=== PATIENT | female | born 1975 | race Caucasian/White ===

== ENCOUNTER 2017-10-04 06:22 | Day surgery (SDC) | payer MEDICAID ==
[~2017-10-04] VITALS: Ht 162.6 cm; Wt 57.3 kg
[~2017-10-04 06:22] MED LIST: FURO-149 PO; LACT10SO PO; RIFA550T PO; SPIR50TA3 PO; THIA100T70 PO
[2017-10-04 06:30] VITALS: BP 137/72
[2017-10-04] MEDS ORDERED: MIDAZolam 5mg/ml 2ml vial ONE (07:03)
[2017-10-04] MEDS ORDERED: fentaNYL/PF 50MCG/1 ML 2ML syringe ONE (07:03)
[2017-10-04] MEDS ORDERED: LIDOcaine Viscous 15ml cup ONE (07:03)
[2017-10-04] MEDS ORDERED: diphenhydrAMINE 50 mg/ml inj ONE (07:59)
[2017-10-04 08:20] VITALS: BP 110/61
[2017-10-04 08:30] VITALS: BP 112/63
[2017-10-04 08:40] VITALS: BP 114/67
== END 2017-10-04 08:55 | disposition home or self-care (01) ==
LOC: GI LAB 06:22
PROVIDERS: ATTEND Internal Medicine Gastroenterology
DX: I85.00 Esophageal varices without bleeding (principal); K31.89 Other diseases of stomach and duodenum; K76.6 Portal hypertension; K29.80 Duodenitis without bleeding
CPT/HCPCS: 43244; 99152; J1200; J2250; J3010; J7030; A4620; G0500

== ENCOUNTER 2017-10-14 06:39 | Inpatient (IN) | payer MEDICAID ==
[~2017-10-14] VITALS: Ht 162.6 cm; Wt 55.0 kg
[~2017-10-14 06:39] MED LIST changes: -RIFA550T PO; -THIA100T70 PO
[2017-10-14] MEDS ORDERED: pantoprazole IV 80 MG in normal saline 100ml IV soln 100 ML IV ONE (06:50)
[2017-10-14] MEDS ORDERED: pantoprazole 40 MG vial IV ONE (07:00)
[2017-10-14 07:33] LABS: HEMATOCRIT 26.5 % (35.0-45.0); HEMOGLOBIN 8.8 g/dl (12.0-16.0); MEAN CORPUSCULAR HEMOGLOBIN 25.3 PG (27.0-31.0); MEAN CORPUSCULAR HGB CONC 33.2 % (33.0-36.5); MEAN CORPUSCULAR VOLUME 76.1 FL (78-98); MEAN PLATELET VOLUME 9.8 FL (7.4-10.4); PLATELET COUNT 72 X10'3 (140-440); RED BLOOD COUNT 3.48 X10'6 (4.20-5.60); RED CELL DISTRIBUTION WIDTH 21.3 % (11.5-14.5); WHITE BLOOD COUNT 5.1 X10'3 (4.5-11.0)
[2017-10-14 07:37] LABS: OCCULT BLOOD STOOL POSITIVE (Neg)
[2017-10-14 07:43] LABS: INR 1.3 INR; PARTIAL THROMBOPLASTIN TIME 32 SECONDS (22-32); PROTHROMBIN TIME 13.4 SECONDS (9.0-12.0)
[2017-10-14 07:58] LABS: ALANINE AMINOTRANSFERASE 115 U/L (12-78); ALBUMIN 3.2 G/DL (3.4-5.0); ALBUMIN/GLOBULIN RATIO 0.7 (1.1-1.5); ALKALINE PHOSPHATASE 182 IU/L (46-116); ANION GAP 15 (8-16); ASPARTATE AMINO TRANSFERASE 326 U/L (10-37); BILIRUBIN,TOTAL 1.9 MG/DL (0.1-1.0); BLOOD UREA NITROGEN 18 MG/DL (7-18); BUN/CREATININE RATIO 27.3 (6.6-38.0); CALCIUM 8.4 MG/DL (8.5-10.1); CHLORIDE 89 MMOL/L (99-107); CREATININE 0.66 MG/DL (0.40-0.90); GLUCOSE 80 MG/DL (70-104); SODIUM 126 MMOL/L (135-145); TOTAL CARBON DIOXIDE 22.4 MMOL/L (24-32); TOTAL PROTEIN 7.9 G/DL (6.4-8.2); eGFR > 90 ML/MIN
[2017-10-14 08:02] LABS: ANISOCYTOSIS 3+; PLATELET ESTIMATE DECREASED; TOTAL CELLS COUNTED 100
[2017-10-14 08:03] LABS: MICROCYTOSIS 1+; POIKILOCYTOSIS 1+; TARGET CELLS 1+
[2017-10-14 08:09] LABS: POTASSIUM 2.9 MMOL/L (3.5-5.1)
[2017-10-14] MEDS: octreotide inj. 1,250 MCG in normal saline 250ml IV soln 250 ML IV SCH (08:32)
[2017-10-14] MEDS: potassium 10mEq/100ml NS w/LIDOcaine (10mg/bag) IV SCH ×2 (09:21→10:46)
[2017-10-14 09:48] LABS: CLARITY,URINE CLEAR (Clear); COLOR,URINE YELLOW (Yellow); GLUCOSE, URINE NEGATIVE (Neg); KETONES,URINE TRACE mg/dl (Neg); LEUKOCYTE ESTERASE ,URINE NEGATIVE (Neg); NITRITES, URINE NEGATIVE (Neg); OCCULT BLOOD,URINE NEGATIVE (Neg); PROTEIN,URINE NEGATIVE (Neg); UROBILINOGEN,URINE 0.2 E.U/dL (0.2-1.0)
[2017-10-14 09:54] LABS: UA COLLECTION TYPE CLN CATCH MIDSTREAM
[2017-10-14] MEDS ORDERED: thiamine inj. 100 MG in normal saline 100ml IV soln 100 ML IV ONE (10:50)
[2017-10-14] MEDS ORDERED: morphine 2 MG/ML inj. syringe IV PRN (11:05)
[2017-10-14] MEDS ORDERED: magnesium hydroxide 30ml (MOM) UD suspension PO PRN (11:05)
[2017-10-14] MEDS ORDERED: mag hydrox/Alum hydrox/simeth 30ml oral suspension PO PRN (11:05)
[2017-10-14] MEDS ORDERED: magnesium Cl slow-release 64mg tablet PO PRN (11:15)
[2017-10-14] MEDS ORDERED: magnesium 2GM in 50ml NS 50 ML IV PRN (11:15)
[2017-10-14] MEDS ORDERED: potassium Cl 40MEQ/NS 500ml 500 ML IV PRN ×2 (11:15)
[2017-10-14] MEDS ORDERED: potassium Cl 20 mEq SR tablet PO PRN ×2 (11:15)
[2017-10-14] MEDS ORDERED: magnesium 4gm in 100ml NS 100 ML IV PRN (11:15)
[2017-10-14] MEDS: cefTRIAXone 1g/NS 100ml IVPB 100 ML IV SCH (11:24)
[2017-10-14] MEDS: pantoprazole 40MG/NS 100ML BAG 100 ML IV SCH ×3 (11:24→21:15)
[2017-10-14] MEDS: ondansetron/PF 4mg/2ml inj IV PRN (11:25)
[2017-10-14] MEDS: LORazepam 2 mg/ml vial IV PRN ×3 (11:25→20:55)
[2017-10-14] MEDS: nicotine 14mg patch - 24hr TD SCH (11:26)
[2017-10-14] MEDS: folic acid inj. 2 MG, MVI, adult No.4 with vit. K 10 ML in dextrose 5% water 500ml 500 ML IV SCH ×3 (11:54)
[2017-10-14] MEDS: morphine 4 MG/ML inj SYRINge IV PRN (11:56)
[2017-10-14] MEDS: normal saline 1000ml 1,000 ML IV SCH ×2 (11:57→21:00)
[2017-10-14 12:56] LABS: HEMATOCRIT 25.2 % (35.0-45.0); HEMOGLOBIN 8.4 g/dl (12.0-16.0); MEAN CORPUSCULAR HGB CONC 33.2 % (33.0-36.5); MEAN CORPUSCULAR VOLUME 75.4 FL (78-98); PLATELET COUNT 68 X10'3 (140-440); RED BLOOD COUNT 3.34 X10'6 (4.20-5.60); RED CELL DISTRIBUTION WIDTH 22.5 % (11.5-14.5); WHITE BLOOD COUNT 5.7 X10'3 (4.5-11.0)
[2017-10-14 13:07] LABS: ANISOCYTOSIS 3+; HYPOCHROMASIA 2+; PLATELET ESTIMATE DECREASED
[2017-10-14 13:08] LABS: TARGET CELLS 2+
[2017-10-14 19:42] LABS: HEMATOCRIT 25.7 % (35.0-45.0); HEMOGLOBIN 8.2 g/dl (12.0-16.0); MEAN CORPUSCULAR HEMOGLOBIN 24.9 PG (27.0-31.0); MEAN CORPUSCULAR HGB CONC 31.9 % (33.0-36.5); MEAN CORPUSCULAR VOLUME 77.9 FL (78-98); MEAN PLATELET VOLUME 9.6 FL (7.4-10.4); PLATELET COUNT 65 X10'3 (140-440); RED BLOOD COUNT 3.29 X10'6 (4.20-5.60); RED CELL DISTRIBUTION WIDTH 22.7 % (11.5-14.5); WHITE BLOOD COUNT 5.2 X10'3 (4.5-11.0)
[2017-10-14 20:21] LABS: MAGNESIUM 1.7 MG/DL (1.5-2.4)
[2017-10-14] MEDS: lactobacillus rhamnosus 10,000 MMU CELLS/CAPSULE PO SCH (20:55)
[2017-10-15 02:01] LABS: HEMATOCRIT 25.7 % (35.0-45.0); HEMOGLOBIN 8.1 g/dl (12.0-16.0); MEAN CORPUSCULAR HEMOGLOBIN 24.6 PG (27.0-31.0); MEAN CORPUSCULAR HGB CONC 31.5 % (33.0-36.5); MEAN PLATELET VOLUME 10.6 FL (7.4-10.4); PLATELET COUNT 67 X10'3 (140-440); RED BLOOD COUNT 3.29 X10'6 (4.20-5.60); RED CELL DISTRIBUTION WIDTH 21.5 % (11.5-14.5); WHITE BLOOD COUNT 6.2 X10'3 (4.5-11.0)
[2017-10-15] MEDS: pantoprazole 40MG/NS 100ML BAG 100 ML IV SCH ×5 (02:40→21:58)
[2017-10-15] MEDS: LORazepam 2 mg/ml vial IV PRN ×3 (03:42→21:58)
[2017-10-15] MEDS: normal saline 1000ml 1,000 ML IV SCH ×3 (03:43→21:05)
[2017-10-15] MEDS: ondansetron/PF 4mg/2ml inj IV PRN (03:51)
[2017-10-15] MEDS: morphine 4 MG/ML inj SYRINge IV PRN ×3 (03:52→23:02)
[2017-10-15 08:00] VITALS: BP 98/60
[2017-10-15 08:12] LABS: INR 1.3 INR; PROTHROMBIN TIME 13.2 SECONDS (9.0-12.0)
[2017-10-15 08:19] LABS: HEMOGLOBIN 8.4 g/dl (12.0-16.0); MEAN CORPUSCULAR HEMOGLOBIN 25.2 PG (27.0-31.0); MEAN CORPUSCULAR HGB CONC 32.2 % (33.0-36.5); MEAN CORPUSCULAR VOLUME 78.2 FL (78-98); MEAN PLATELET VOLUME 10.1 FL (7.4-10.4); PLATELET COUNT 67 X10'3 (140-440); RED BLOOD COUNT 3.33 X10'6 (4.20-5.60); RED CELL DISTRIBUTION WIDTH 22.8 % (11.5-14.5); WHITE BLOOD COUNT 7.4 X10'3 (4.5-11.0)
[2017-10-15 08:32] LABS: ANISOCYTOSIS 3+; HYPOCHROMASIA 1+; MICROCYTOSIS 1+; PLATELET ESTIMATE DECREASED; POLYCHROMASIA 1+; TARGET CELLS 1+; TOTAL CELLS COUNTED 100
[2017-10-15 08:33] LABS: POIKILOCYTOSIS FEW
[2017-10-15 08:36] LABS: ALANINE AMINOTRANSFERASE 94 U/L (12-78); ALBUMIN 2.8 G/DL (3.4-5.0); ALBUMIN/GLOBULIN RATIO 0.7 (1.1-1.5); ALKALINE PHOSPHATASE 131 IU/L (46-116); AMYLASE 22 U/L (25-115); ANION GAP 11 (8-16); ASPARTATE AMINO TRANSFERASE 247 U/L (10-37); BILIRUBIN,TOTAL 2.4 MG/DL (0.1-1.0); BLOOD UREA NITROGEN 11 MG/DL (7-18); BUN/CREATININE RATIO 17.2 (6.6-38.0); CALCIUM 7.7 MG/DL (8.5-10.1); CHLORIDE 99 MMOL/L (99-107); CREATININE 0.64 MG/DL (0.40-0.90); GLUCOSE 91 MG/DL (70-104); LIPASE 118 U/L (73-393); MAGNESIUM 1.8 MG/DL (1.5-2.4); PHOSPHORUS 1.8 MG/DL (2.3-4.5); POTASSIUM 3.9 MMOL/L (3.5-5.1); SODIUM 132 MMOL/L (135-145); TOTAL PROTEIN 7.1 G/DL (6.4-8.2); eGFR > 90 ML/MIN
[2017-10-15] MEDS: nicotine 14mg patch - 24hr TD SCH (08:37)
[2017-10-15] MEDS: cefTRIAXone 1g/NS 100ml IVPB 100 ML IV SCH (08:37)
[2017-10-15] MEDS: lactobacillus rhamnosus 10,000 MMU CELLS/CAPSULE PO SCH ×2 (08:37→21:05)
[2017-10-15] MEDS: folic acid inj. 2 MG, MVI, adult No.4 with vit. K 10 ML in dextrose 5% water 500ml 500 ML IV SCH ×3 (08:38)
[2017-10-15] MEDS: octreotide inj. 1,250 MCG in normal saline 250ml IV soln 250 ML IV SCH (09:34)
[2017-10-15] MEDS ORDERED: pneumococcal 23-VAL P-sac vacc 25 mcg/0.5ml vial IMVAC ONE (10:00)
[2017-10-15] MEDS ORDERED: FLU VACC QS2017-18 36MOS UP/PF 60 MCG/0.5 ML SYRINGE IMVAC ONE (10:00)
[2017-10-15 11:00] VITALS: BP 99/56
[2017-10-15 15:00] VITALS: BP 90/55
[2017-10-15 18:00] VITALS: BP 94/56
[2017-10-15 22:00] VITALS: BP 94/62
[2017-10-15 22:06] LABS: HEMATOCRIT 24.9 % (35.0-45.0); HEMOGLOBIN 8.1 g/dl (12.0-16.0); MEAN CORPUSCULAR HEMOGLOBIN 25.3 PG (27.0-31.0); MEAN CORPUSCULAR HGB CONC 32.7 % (33.0-36.5); MEAN CORPUSCULAR VOLUME 77.6 FL (78-98); MEAN PLATELET VOLUME 9.9 FL (7.4-10.4); PLATELET COUNT 72 X10'3 (140-440); RED BLOOD COUNT 3.21 X10'6 (4.20-5.60); RED CELL DISTRIBUTION WIDTH 23.2 % (11.5-14.5); WHITE BLOOD COUNT 9.5 X10'3 (4.5-11.0)
[2017-10-15] MEDS: acetaminophen 325mg tablet PO PRN (23:03)
[2017-10-16] VITALS (21 sets, daily range): BP systolic 84–116; BP diastolic 41–68
[2017-10-16] MEDS: pantoprazole 40MG/NS 100ML BAG 100 ML IV SCH ×3 (04:33→11:00)
[2017-10-16] MEDS: normal saline 1000ml 1,000 ML IV SCH ×3 (04:33→15:49)
[2017-10-16 06:12] LABS: HEMATOCRIT 25.2 % (35.0-45.0); HEMOGLOBIN 8.1 g/dl (12.0-16.0); MEAN CORPUSCULAR HEMOGLOBIN 25.4 PG (27.0-31.0); MEAN CORPUSCULAR HGB CONC 32.3 % (33.0-36.5); MEAN CORPUSCULAR VOLUME 78.7 FL (78-98); MEAN PLATELET VOLUME 9.8 FL (7.4-10.4); PLATELET COUNT 67 X10'3 (140-440); RED BLOOD COUNT 3.21 X10'6 (4.20-5.60); RED CELL DISTRIBUTION WIDTH 23.9 % (11.5-14.5); WHITE BLOOD COUNT 9.3 X10'3 (4.5-11.0)
[2017-10-16 06:20] LABS: INR 1.3 INR; PROTHROMBIN TIME 13.4 SECONDS (9.0-12.0)
[2017-10-16 06:53] LABS: ALANINE AMINOTRANSFERASE 70 U/L (12-78); ALBUMIN 2.5 G/DL (3.4-5.0); ALBUMIN/GLOBULIN RATIO 0.6 (1.1-1.5); ALKALINE PHOSPHATASE 117 IU/L (46-116); AMYLASE 16 U/L (25-115); ANION GAP 12 (8-16); ASPARTATE AMINO TRANSFERASE 156 U/L (10-37); BILIRUBIN,TOTAL 2.7 MG/DL (0.1-1.0); BLOOD UREA NITROGEN 6 MG/DL (7-18); BUN/CREATININE RATIO 10.9 (6.6-38.0); CALCIUM 7.3 MG/DL (8.5-10.1); CHLORIDE 99 MMOL/L (99-107); CREATININE 0.55 MG/DL (0.40-0.90); GLUCOSE 91 MG/DL (70-104); LIPASE 67 U/L (73-393); MAGNESIUM 1.6 MG/DL (1.5-2.4); PHOSPHORUS 1.6 MG/DL (2.3-4.5); POTASSIUM 3.4 MMOL/L (3.5-5.1); SODIUM 134 MMOL/L (135-145); TOTAL CARBON DIOXIDE 22.6 MMOL/L (24-32); TOTAL PROTEIN 6.5 G/DL (6.4-8.2); eGFR > 90 ML/MIN
[2017-10-16 06:57] LABS: ANISOCYTOSIS 3+; MICROCYTOSIS 2+; PLATELET ESTIMATE DECREASED; TOTAL CELLS COUNTED 100
[2017-10-16 06:58] LABS: HYPOCHROMASIA 1+; TARGET CELLS 2+
[2017-10-16] MEDS: cefTRIAXone 1g/NS 100ml IVPB 100 ML IV SCH (07:18)
[2017-10-16] MEDS: folic acid inj. 2 MG, MVI, adult No.4 with vit. K 10 ML in dextrose 5% water 500ml 500 ML IV SCH ×3 (07:19)
[2017-10-16] MEDS: nicotine 14mg patch - 24hr TD SCH (07:20)
[2017-10-16] MEDS: morphine 4 MG/ML inj SYRINge IV PRN (07:41)
[2017-10-16] MEDS: lactobacillus rhamnosus 10,000 MMU CELLS/CAPSULE PO SCH ×2 (08:00→20:45)
[2017-10-16] MEDS: octreotide inj. 1,250 MCG in normal saline 250ml IV soln 250 ML IV SCH (08:50)
[2017-10-16] MEDS ORDERED: normal saline 1000ml 1,000 ML IV SCH (09:40)
[2017-10-16] MEDS ORDERED: LIDOcaine Viscous 15ml cup PO ONE (09:40)
[2017-10-16] MEDS ORDERED: fentaNYL/PF 50MCG/1 ML 2ML syringe IV PRN (09:40)
[2017-10-16] MEDS ORDERED: simethicone 40mg/0.6ml oral drops 30ml MC ONE (09:40)
[2017-10-16] MEDS ORDERED: MIDAZolam 5mg/5ml vial IV PRN (09:40)
[2017-10-16] MEDS ORDERED: LIDOcaine Viscous 15ml cup ONE (09:58)
[2017-10-16] MEDS ORDERED: fentaNYL/PF 50MCG/1 ML 2ML syringe ONE (09:58)
[2017-10-16] MEDS ORDERED: MIDAZolam 5mg/ml 2ml vial ONE (09:58)
[2017-10-16] MEDS ORDERED: diphenhydrAMINE 50 mg/ml inj ONE (10:19)
[2017-10-16] MEDS: propranolol 10mg tablet PO SCH ×2 (13:42→20:00)
[2017-10-16] MEDS: LORazepam 2 mg/ml vial IV PRN (15:49)
[2017-10-16] MEDS: pantoprazole 40mg Tablet.DR PO SCH (20:45)
[2017-10-17] VITALS (7 sets, daily range): BP systolic 83–95; BP diastolic 48–55
[2017-10-17] MEDS ORDERED: normal saline 1000ml 1,000 ML IV SCH (00:45)
[2017-10-17] MEDS: acetaminophen 325mg tablet PO PRN ×2 (00:54→19:56)
[2017-10-17] MEDS: normal saline 1000ml 1,000 ML IV SCH ×2 (03:15→19:15)
[2017-10-17 05:18] LABS: HEMATOCRIT 24.9 % (35.0-45.0); MEAN CORPUSCULAR HEMOGLOBIN 25.5 PG (27.0-31.0); MEAN CORPUSCULAR HGB CONC 32.2 % (33.0-36.5); MEAN PLATELET VOLUME 9.5 FL (7.4-10.4); PLATELET COUNT 85 X10'3 (140-440); RED BLOOD COUNT 3.15 X10'6 (4.20-5.60); RED CELL DISTRIBUTION WIDTH 23.5 % (11.5-14.5); WHITE BLOOD COUNT 8.1 X10'3 (4.5-11.0)
[2017-10-17 05:25] LABS: INR 1.4 INR; PROTHROMBIN TIME 14.6 SECONDS (9.0-12.0)
[2017-10-17 05:36] LABS: ALANINE AMINOTRANSFERASE 56 U/L (12-78); ALBUMIN 2.4 G/DL (3.4-5.0); ALBUMIN/GLOBULIN RATIO 0.6 (1.1-1.5); ALKALINE PHOSPHATASE 115 IU/L (46-116); AMYLASE 21 U/L (25-115); ANION GAP 8 (8-16); ASPARTATE AMINO TRANSFERASE 122 U/L (10-37); BILIRUBIN,TOTAL 2.7 MG/DL (0.1-1.0); BLOOD UREA NITROGEN 5 MG/DL (7-18); BUN/CREATININE RATIO 8.5 (6.6-38.0); CALCIUM 7.4 MG/DL (8.5-10.1); CHLORIDE 102 MMOL/L (99-107); CREATININE 0.59 MG/DL (0.40-0.90); GLUCOSE 88 MG/DL (70-104); LIPASE 162 U/L (73-393); MAGNESIUM 1.3 MG/DL (1.5-2.4); PHOSPHORUS 1.4 MG/DL (2.3-4.5); POTASSIUM 3.6 MMOL/L (3.5-5.1); SODIUM 135 MMOL/L (135-145); TOTAL CARBON DIOXIDE 24.6 MMOL/L (24-32); TOTAL PROTEIN 6.3 G/DL (6.4-8.2); eGFR > 90 ML/MIN
[2017-10-17 05:39] LABS: ANISOCYTOSIS 3+; ELLIPTOCYTES FEW; PLATELET ESTIMATE DECREASED; POLYCHROMASIA FEW; TARGET CELLS 2+; TOTAL CELLS COUNTED 100
[2017-10-17 05:40] LABS: TEAR DROP CELLS FEW
[2017-10-17] MEDS: propranolol 10mg tablet PO SCH ×2 (08:00→20:00)
[2017-10-17] MEDS: nicotine 14mg patch - 24hr TD SCH (08:27)
[2017-10-17] MEDS: lactobacillus rhamnosus 10,000 MMU CELLS/CAPSULE PO SCH ×2 (08:28→19:56)
[2017-10-17] MEDS: cefTRIAXone 1g/NS 100ml IVPB 100 ML IV SCH (08:28)
[2017-10-17] MEDS: pantoprazole 40mg Tablet.DR PO SCH ×2 (08:29→19:56)
[2017-10-17] MEDS: folic acid 1mg tablet PO SCH (08:50)
[2017-10-17] MEDS: multivitamins, therapeutics tablet PO SCH (08:50)
[2017-10-17] MEDS ORDERED: magnesium Cl slow-release 64mg tablet PO PRN (21:30)
[2017-10-17] MEDS ORDERED: potassium Cl 40MEQ/NS 500ml 500 ML IV PRN ×2 (21:30)
[2017-10-17] MEDS ORDERED: potassium Cl 20 mEq SR tablet PO PRN (21:30)
[2017-10-18] VITALS (7 sets, daily range): BP systolic 88–101; BP diastolic 53–69
[2017-10-18] MEDS: normal saline 1000ml 1,000 ML IV SCH ×4 (03:15→13:23)
[2017-10-18] MEDS: acetaminophen 325mg tablet PO PRN ×2 (03:54→13:23)
[2017-10-18 05:40] LABS: HEMATOCRIT 24.5 % (35.0-45.0); MEAN CORPUSCULAR HEMOGLOBIN 25.5 PG (27.0-31.0); MEAN CORPUSCULAR HGB CONC 32.7 % (33.0-36.5); MEAN CORPUSCULAR VOLUME 77.8 FL (78-98); MEAN PLATELET VOLUME 9.6 FL (7.4-10.4); PLATELET COUNT 106 X10'3 (140-440); RED BLOOD COUNT 3.15 X10'6 (4.20-5.60); RED CELL DISTRIBUTION WIDTH 24.3 % (11.5-14.5); WHITE BLOOD COUNT 7.2 X10'3 (4.5-11.0)
[2017-10-18 05:41] LABS: INR 1.4 INR; PROTHROMBIN TIME 14.4 SECONDS (9.0-12.0)
[2017-10-18 05:56] LABS: ALANINE AMINOTRANSFERASE 59 U/L (12-78); ALBUMIN 2.3 G/DL (3.4-5.0); ALBUMIN/GLOBULIN RATIO 0.6 (1.1-1.5); ALKALINE PHOSPHATASE 114 IU/L (46-116); AMYLASE 100 U/L (25-115); ANION GAP 12 (8-16); ASPARTATE AMINO TRANSFERASE 103 U/L (10-37); BILIRUBIN,TOTAL 2.6 MG/DL (0.1-1.0); BLOOD UREA NITROGEN 5 MG/DL (7-18); BUN/CREATININE RATIO 9.8 (6.6-38.0); CALCIUM 7.4 MG/DL (8.5-10.1); CHLORIDE 103 MMOL/L (99-107); CREATININE 0.51 MG/DL (0.40-0.90); GLUCOSE 85 MG/DL (70-104); MAGNESIUM 1.5 MG/DL (1.5-2.4); PHOSPHORUS 1.5 MG/DL (2.3-4.5); SODIUM 136 MMOL/L (135-145); TOTAL CARBON DIOXIDE 20.7 MMOL/L (24-32); eGFR > 90 ML/MIN
[2017-10-18 05:58] LABS: LIPASE 1703 U/L (73-393)
[2017-10-18 06:32] LABS: POTASSIUM 2.8 MMOL/L (3.5-5.1)
[2017-10-18 06:48] LABS: BASOPHILS % (MANUAL) 2 % (0-1); EOSINOPHILS % (MANUAL) 1 % (0-6); LYMPHOCYTES % (MANUAL) 7 % (21-51); METAMYLEOCYTES% (MANUAL) 2 % (0-0); MONOCYTES % (MANUAL) 10 % (2-12); NEUTROPHILS % (MANUAL) 78 % (42-75); PLATELET ESTIMATE DECREASED; SMUDGE CELLS FEW; TOTAL CELLS COUNTED 100
[2017-10-18 06:49] LABS: ANISOCYTOSIS 3+
[2017-10-18 06:50] LABS: TARGET CELLS 1+
[2017-10-18] MEDS: lactobacillus rhamnosus 10,000 MMU CELLS/CAPSULE PO SCH ×2 (07:26→19:44)
[2017-10-18] MEDS: propranolol 10mg tablet PO SCH ×2 (07:27→19:45)
[2017-10-18] MEDS: pantoprazole 40mg Tablet.DR PO SCH ×2 (07:27→19:46)
[2017-10-18] MEDS: folic acid 1mg tablet PO SCH (07:27)
[2017-10-18] MEDS: multivitamins, therapeutics tablet PO SCH (07:27)
[2017-10-18] MEDS: potassium Cl 20 mEq SR tablet PO PRN ×2 (07:27→13:23)
[2017-10-18] MEDS: nicotine 14mg patch - 24hr TD SCH (07:28)
[2017-10-18] MEDS ORDERED: LACTOBACILLUS RHAMNOSUS GG 15 billion unit sprinkle caps PO SCH (07:30)
[2017-10-18] MEDS: LORazepam 2 mg/ml vial IV PRN ×2 (16:09→20:26)
[2017-10-18] MEDS: pantoprazole 40 MG vial IV SCH (20:19)
[2017-10-19] MEDS: LORazepam 2 mg/ml vial IV PRN ×5 (01:37→22:05)
[2017-10-19 03:00] VITALS: BP 94/67
[2017-10-19] MEDS: normal saline 1000ml 1,000 ML IV SCH ×2 (03:22→11:15)
[2017-10-19 06:00] VITALS: BP 100/62
[2017-10-19 06:11] LABS: HEMATOCRIT 24.7 % (35.0-45.0); MEAN CORPUSCULAR HEMOGLOBIN 25.4 PG (27.0-31.0); MEAN CORPUSCULAR HGB CONC 32.4 % (33.0-36.5); MEAN CORPUSCULAR VOLUME 78.3 FL (78-98); MEAN PLATELET VOLUME 9.7 FL (7.4-10.4); PLATELET COUNT 121 X10'3 (140-440); RED BLOOD COUNT 3.16 X10'6 (4.20-5.60); RED CELL DISTRIBUTION WIDTH 25.4 % (11.5-14.5); WHITE BLOOD COUNT 6.1 X10'3 (4.5-11.0)
[2017-10-19 06:17] LABS: INR 1.4 INR; PROTHROMBIN TIME 14.5 SECONDS (9.0-12.0)
[2017-10-19 06:27] LABS: ALANINE AMINOTRANSFERASE 52 U/L (12-78); ALBUMIN 2.2 G/DL (3.4-5.0); ALBUMIN/GLOBULIN RATIO 0.6 (1.1-1.5); ALKALINE PHOSPHATASE 110 IU/L (46-116); AMYLASE 154 U/L (25-115); ANION GAP 15 (8-16); ASPARTATE AMINO TRANSFERASE 86 U/L (10-37); BLOOD UREA NITROGEN 5 MG/DL (7-18); BUN/CREATININE RATIO 11.9 (6.6-38.0); CALCIUM 7.4 MG/DL (8.5-10.1); CHLORIDE 104 MMOL/L (99-107); CREATININE 0.42 MG/DL (0.40-0.90); GLUCOSE 66 MG/DL (70-104); MAGNESIUM 1.5 MG/DL (1.5-2.4); PHOSPHORUS 2.4 MG/DL (2.3-4.5); POTASSIUM 3.4 MMOL/L (3.5-5.1); SODIUM 137 MMOL/L (135-145); TOTAL CARBON DIOXIDE 17.8 MMOL/L (24-32); TOTAL PROTEIN 5.9 G/DL (6.4-8.2); eGFR > 90 ML/MIN
[2017-10-19 06:29] LABS: LIPASE 1838 U/L (73-393)
[2017-10-19] MEDS: multivitamins, therapeutics tablet PO SCH (07:04)
[2017-10-19] MEDS: folic acid 1mg tablet PO SCH (07:04)
[2017-10-19] MEDS: lactobacillus rhamnosus 10,000 MMU CELLS/CAPSULE PO SCH ×2 (07:04→20:00)
[2017-10-19] MEDS: propranolol 10mg tablet PO SCH ×2 (07:04→20:00)
[2017-10-19] MEDS: nicotine 14mg patch - 24hr TD SCH (07:28)
[2017-10-19] MEDS: pantoprazole 40 MG vial IV SCH ×2 (07:29→20:07)
[2017-10-19] MEDS ORDERED: LIDOcaine 1% 30ml vial 5 ML in potassium Cl 40MEQ/NS 500ml 500 ML IV PRN (09:55)
[2017-10-19 10:36] LABS: TOTAL CELLS COUNTED 100
[2017-10-19 10:37] LABS: ANISOCYTOSIS 3+; PLATELET ESTIMATE DECREASED
[2017-10-19 10:38] LABS: HYPOCHROMASIA 1+; POLYCHROMASIA FEW
[2017-10-19 10:39] LABS: TARGET CELLS 2+
[2017-10-19] MEDS ORDERED: dextrose 5%-1/4 normal saline 1,000 ML IV SCH (10:40)
[2017-10-19 10:42] LABS: BURR CELLS FEW; SMUDGE CELLS FEW
[2017-10-19 11:00] VITALS: BP 97/60
[2017-10-19] MEDS ORDERED: dextrose 5%-1/2 normal saline 1,000 ML IV SCH (11:10)
[2017-10-19 15:00] VITALS: BP 93/59
[2017-10-19 19:00] VITALS: BP 104/63
[2017-10-19] MEDS: dextrose 5%-normal saline 1,000 ML IV SCH (21:03)
[2017-10-19 23:00] VITALS: BP 92/58
[2017-10-20 03:00] VITALS: BP 94/60
[2017-10-20] MEDS: LORazepam 2 mg/ml vial IV PRN ×3 (03:41→22:47)
[2017-10-20] MEDS: dextrose 5%-normal saline 1,000 ML IV SCH ×2 (04:20→12:20)
[2017-10-20 05:29] LABS: HEMATOCRIT 26.7 % (35.0-45.0); HEMOGLOBIN 8.6 g/dl (12.0-16.0); MEAN CORPUSCULAR HGB CONC 32.2 % (33.0-36.5); MEAN CORPUSCULAR VOLUME 77.7 FL (78-98); MEAN PLATELET VOLUME 9.4 FL (7.4-10.4); PLATELET COUNT 169 X10'3 (140-440); RED BLOOD COUNT 3.44 X10'6 (4.20-5.60); RED CELL DISTRIBUTION WIDTH 25.9 % (11.5-14.5); WHITE BLOOD COUNT 6.9 X10'3 (4.5-11.0)
[2017-10-20 05:41] LABS: INR 1.3 INR; PROTHROMBIN TIME 13.4 SECONDS (9.0-12.0)
[2017-10-20 06:00] VITALS: BP 98/53
[2017-10-20 06:00] LABS: ALBUMIN 2.6 G/DL (3.4-5.0); ANION GAP 12 (8-16); BLOOD UREA NITROGEN 2 MG/DL (7-18); BUN/CREATININE RATIO 3.2 (6.6-38.0); CALCIUM 8.1 MG/DL (8.5-10.1); CHLORIDE 103 MMOL/L (99-107); CREATININE 0.62 MG/DL (0.40-0.90); GLUCOSE 98 MG/DL (70-104); MAGNESIUM 1.6 MG/DL (1.5-2.4); POTASSIUM 3.2 MMOL/L (3.5-5.1); SODIUM 136 MMOL/L (135-145); TOTAL CARBON DIOXIDE 21.3 MMOL/L (24-32); eGFR > 90 ML/MIN
[2017-10-20 06:07] LABS: TOTAL CELLS COUNTED 100
[2017-10-20 06:08] LABS: ANISOCYTOSIS 2+; LARGE PLATELETS FEW; PLATELET ESTIMATE NORMAL; POLYCHROMASIA 1+; TARGET CELLS 2+
[2017-10-20 06:09] LABS: SCHISTOCYTES 1+; SPHEROCYTES 1+; STOMATOCYTES 1+
[2017-10-20 06:10] LABS: EOSINOPHILS % (MANUAL) 0 % (0-6)
[2017-10-20] MEDS: multivitamins, therapeutics tablet PO SCH (07:46)
[2017-10-20] MEDS: nicotine 14mg patch - 24hr TD SCH (07:46)
[2017-10-20] MEDS: thiamine 100mg tablet PO SCH (07:46)
[2017-10-20] MEDS: lactobacillus rhamnosus 10,000 MMU CELLS/CAPSULE PO SCH ×2 (07:46→19:34)
[2017-10-20] MEDS: folic acid 1mg tablet PO SCH (07:46)
[2017-10-20] MEDS: pantoprazole 40 MG vial IV SCH ×2 (07:46→19:34)
[2017-10-20] MEDS: magnesium sulf injection 2 GM, MVI, adult No.4 with vit. K 10 ML in dextrose 5% water 5... IV SCH ×3 (07:47)
[2017-10-20] MEDS: morphine 4 MG/ML inj SYRINge IV PRN (07:48)
[2017-10-20] MEDS: propranolol 10mg tablet PO SCH ×2 (08:00→19:34)
[2017-10-20] MEDS ORDERED: levoFLOXACIN-Levaquin 750MG/D5 150 ML IV SCH (08:00)
[2017-10-20 11:00] VITALS: BP 88/58
[2017-10-20 15:00] VITALS: BP 94/62
[2017-10-20 19:00] VITALS: BP 99/61
[2017-10-20 23:00] VITALS: BP 91/58
[2017-10-21] VITALS (8 sets, daily range): BP systolic 79–94; BP diastolic 45–59
[2017-10-21] MEDS: LORazepam 2 mg/ml vial IV PRN ×5 (02:52→22:19)
[2017-10-21 06:34] LABS: HEMATOCRIT 24.7 % (35.0-45.0); HEMOGLOBIN 8.1 g/dl (12.0-16.0); MEAN CORPUSCULAR HEMOGLOBIN 25.4 PG (27.0-31.0); MEAN CORPUSCULAR VOLUME 77.1 FL (78-98); MEAN PLATELET VOLUME 9.8 FL (7.4-10.4); PLATELET COUNT 180 X10'3 (140-440); RED BLOOD COUNT 3.21 X10'6 (4.20-5.60); RED CELL DISTRIBUTION WIDTH 24.9 % (11.5-14.5); WHITE BLOOD COUNT 9.1 X10'3 (4.5-11.0)
[2017-10-21 06:50] LABS: INR 1.3 INR; PROTHROMBIN TIME 13.7 SECONDS (9.0-12.0)
[2017-10-21 06:54] LABS: ALBUMIN 2.4 G/DL (3.4-5.0); ANION GAP 11 (8-16); BLOOD UREA NITROGEN 2 MG/DL (7-18); BUN/CREATININE RATIO 3.9 (6.6-38.0); CHLORIDE 103 MMOL/L (99-107); CREATININE 0.51 MG/DL (0.40-0.90); GLUCOSE 79 MG/DL (70-104); MAGNESIUM 1.8 MG/DL (1.5-2.4); SODIUM 135 MMOL/L (135-145); TOTAL CARBON DIOXIDE 20.9 MMOL/L (24-32); eGFR > 90 ML/MIN
[2017-10-21] MEDS: magnesium sulf injection 2 GM, MVI, adult No.4 with vit. K 10 ML in dextrose 5% water 5... IV SCH ×3 (07:27)
[2017-10-21] MEDS: pantoprazole 40 MG vial IV SCH ×2 (07:29→19:31)
[2017-10-21] MEDS: nicotine 14mg patch - 24hr TD SCH (07:29)
[2017-10-21] MEDS: thiamine 100mg tablet PO SCH (07:29)
[2017-10-21] MEDS: folic acid 1mg tablet PO SCH (07:29)
[2017-10-21] MEDS: levoFLOXACIN 500mg tablet PO SCH (07:30)
[2017-10-21] MEDS: lactobacillus rhamnosus 10,000 MMU CELLS/CAPSULE PO SCH ×2 (07:30→19:31)
[2017-10-21] MEDS: propranolol 10mg tablet PO SCH ×2 (07:30→20:00)
[2017-10-21] MEDS: multivitamins, therapeutics tablet PO SCH (07:31)
[2017-10-21 07:50] LABS: ANISOCYTOSIS 3+; PLATELET ESTIMATE NORMAL; POLYCHROMASIA 1+; TARGET CELLS 2+; TOTAL CELLS COUNTED 100
[2017-10-21 07:51] LABS: SCHISTOCYTES 1+
[2017-10-21 11:28] LABS: LDH,BODY FLUID 48 U/L
[2017-10-21 11:46] LABS: LYMPHOCYTES,BODY FLUID 10 %; MONOCYTES,BODY FLUID 64 %; NEUTROPHILS,BODY FLUID 26 %
[2017-10-21 11:47] LABS: BF RBC COUNT 629 /CU MM; BF WBC COUNT 225 /CU MM (0-1000); BFAPPEAR HAZY; BFCOLOR YELLOW; BFVOLUME 49 ML
[2017-10-21 11:48] LABS: BF MESOTHELIAL CELLS FEW
[2017-10-22] MEDS: LORazepam 2 mg/ml vial IV PRN ×3 (02:27→20:32)
[2017-10-22 03:00] VITALS: BP 89/55
[2017-10-22 06:00] VITALS: BP 90/53
[2017-10-22 06:08] LABS: HEMATOCRIT 26.8 % (35.0-45.0); HEMOGLOBIN 8.7 g/dl (12.0-16.0); MEAN CORPUSCULAR HEMOGLOBIN 25.4 PG (27.0-31.0); MEAN CORPUSCULAR HGB CONC 32.4 % (33.0-36.5); MEAN CORPUSCULAR VOLUME 78.5 FL (78-98); PLATELET COUNT 191 X10'3 (140-440); RED BLOOD COUNT 3.42 X10'6 (4.20-5.60); RED CELL DISTRIBUTION WIDTH 26.2 % (11.5-14.5); WHITE BLOOD COUNT 11.7 X10'3 (4.5-11.0)
[2017-10-22 06:16] LABS: INR 1.3 INR; PROTHROMBIN TIME 13.7 SECONDS (9.0-12.0)
[2017-10-22 06:27] LABS: ALBUMIN 2.5 G/DL (3.4-5.0); ANION GAP 12 (8-16); BLOOD UREA NITROGEN 3 MG/DL (7-18); BUN/CREATININE RATIO 5.3 (6.6-38.0); CALCIUM 7.8 MG/DL (8.5-10.1); CHLORIDE 103 MMOL/L (99-107); CREATININE 0.57 MG/DL (0.40-0.90); GLUCOSE 84 MG/DL (70-104); POTASSIUM 3.7 MMOL/L (3.5-5.1); SODIUM 136 MMOL/L (135-145); TOTAL CARBON DIOXIDE 20.7 MMOL/L (24-32); eGFR > 90 ML/MIN
[2017-10-22 07:21] LABS: PLATELET ESTIMATE NORMAL; TOTAL CELLS COUNTED 100
[2017-10-22 07:23] LABS: ANISOCYTOSIS 3+; POLYCHROMASIA 2+; SCHISTOCYTES 1+; TARGET CELLS 2+
[2017-10-22] MEDS: propranolol 10mg tablet PO SCH ×2 (08:59→20:00)
[2017-10-22] MEDS: lactobacillus rhamnosus 10,000 MMU CELLS/CAPSULE PO SCH ×2 (08:59→20:32)
[2017-10-22] MEDS: thiamine 100mg tablet PO SCH (08:59)
[2017-10-22] MEDS: folic acid 1mg tablet PO SCH (08:59)
[2017-10-22] MEDS: magnesium 2GM in 50ml NS 50 ML IV SCH (08:59)
[2017-10-22] MEDS: levoFLOXACIN 500mg tablet PO SCH (08:59)
[2017-10-22] MEDS: pantoprazole 40 MG vial IV SCH (08:59)
[2017-10-22] MEDS: nicotine 14mg patch - 24hr TD SCH (08:59)
[2017-10-22] MEDS: multivitamins, therapeutics tablet PO SCH (08:59)
[2017-10-22 11:00] VITALS: BP 81/45
[2017-10-22] MEDS ORDERED: cefazolin 1gm/NS 100mL 100 ML IV ONE (11:25)
[2017-10-22] MEDS: morphine 4 MG/ML inj SYRINge IV PRN (12:18)
[2017-10-22 15:00] VITALS: BP_SYST 78; BP_SYST 94; BP_DIAS 45; BP_DIAS 58
[2017-10-22 19:00] VITALS: BP 90/62
[2017-10-22] MEDS: pantoprazole 40mg Tablet.DR PO SCH (20:32)
[2017-10-22] MEDS: cefazolin 1gm/NS 100mL 100 ML IV SCH (20:33)
[2017-10-22 23:00] VITALS: BP 90/56
[2017-10-23] VITALS (7 sets, daily range): BP systolic 84–100; BP diastolic 45–61
[2017-10-23] MEDS: LORazepam 2 mg/ml vial IV PRN ×2 (03:14→08:19)
[2017-10-23] MEDS: cefazolin 1gm/NS 100mL 100 ML IV SCH ×2 (04:57→12:09)
[2017-10-23 05:25] LABS: HEMATOCRIT 28.1 % (35.0-45.0); HEMOGLOBIN 9.1 g/dl (12.0-16.0); MEAN CORPUSCULAR HEMOGLOBIN 25.7 PG (27.0-31.0); MEAN CORPUSCULAR HGB CONC 32.5 % (33.0-36.5); MEAN CORPUSCULAR VOLUME 79.1 FL (78-98); MEAN PLATELET VOLUME 9.8 FL (7.4-10.4); PLATELET COUNT 181 X10'3 (140-440); RED BLOOD COUNT 3.56 X10'6 (4.20-5.60); RED CELL DISTRIBUTION WIDTH 26.5 % (11.5-14.5); WHITE BLOOD COUNT 10.7 X10'3 (4.5-11.0)
[2017-10-23 05:33] LABS: INR 1.4 INR; PROTHROMBIN TIME 14.2 SECONDS (9.0-12.0)
[2017-10-23 05:55] LABS: ALBUMIN 2.3 G/DL (3.4-5.0); ANION GAP 12 (8-16); BLOOD UREA NITROGEN 4 MG/DL (7-18); BUN/CREATININE RATIO 7.5 (6.6-38.0); CHLORIDE 104 MMOL/L (99-107); CREATININE 0.53 MG/DL (0.40-0.90); GLUCOSE 90 MG/DL (70-104); MAGNESIUM 1.8 MG/DL (1.5-2.4); POTASSIUM 3.6 MMOL/L (3.5-5.1); SODIUM 136 MMOL/L (135-145); TOTAL CARBON DIOXIDE 20.5 MMOL/L (24-32); eGFR > 90 ML/MIN
[2017-10-23] MEDS: propranolol 10mg tablet PO SCH (07:16)
[2017-10-23 07:26] LABS: TOTAL CELLS COUNTED 100
[2017-10-23 07:27] LABS: ANISOCYTOSIS 3+; PLATELET ESTIMATE NORMAL; POLYCHROMASIA 2+
[2017-10-23 07:28] LABS: HYPOCHROMASIA 1+; SCHISTOCYTES FEW; TARGET CELLS 2+; TOXIC GRANULATION 1+
[2017-10-23] MEDS: thiamine 100mg tablet PO SCH (08:19)
[2017-10-23] MEDS: lactobacillus rhamnosus 10,000 MMU CELLS/CAPSULE PO SCH (08:19)
[2017-10-23] MEDS: pantoprazole 40mg Tablet.DR PO SCH (08:19)
[2017-10-23] MEDS: multivitamins, therapeutics tablet PO SCH (08:19)
[2017-10-23] MEDS: levoFLOXACIN 500mg tablet PO SCH (08:19)
[2017-10-23] MEDS: folic acid 1mg tablet PO SCH (08:19)
[2017-10-23] MEDS: nicotine 14mg patch - 24hr TD SCH (08:20)
[2017-10-23] MEDS: magnesium 2GM in 50ml NS 50 ML IV SCH (08:20)
[2017-10-23] MEDS ORDERED: LORazepam 1 MG tablet PO PRN (10:05)
[2017-10-23] MEDS ORDERED: PANT-47 PO (12:47)
[2017-10-23] MEDS ORDERED: THI100T PO (12:47)
[2017-10-23] MEDS ORDERED: FOLI0.4T2 PO (12:47)
[2017-10-23] MEDS ORDERED: CLON-528 PO (12:47)
[2017-10-23] MEDS ORDERED: PROP10TA10 PO (12:47)
== END 2017-10-23 13:49 | disposition home or self-care (01) ==
LOC: ER 06:39 → ED HOLD 11:01 → EDBEDREQTM 10-15 06:22 → EDBEDREQDT 10-15 06:22 → EDBEDREQ 10-15 06:22 → PCU 3S 10-15 07:40
PROVIDERS: ADMIT Family Medicine; ATTEND Family Medicine
PROC: 06L38CZ Occlusion of Esophageal Vein with Extraluminal Device, Via Natural or Artificial Opening Endoscopic (ICD-10-PCS; 2017-10-16)
PROC: 0W9G3ZZ Drainage of Peritoneal Cavity, Percutaneous Approach (ICD-10-PCS; principal; 2017-10-21)
PROC: 30233N1 Transfusion of Nonautologous Red Blood Cells into Peripheral Vein, Percutaneous Approach (ICD-10-PCS; 2017-10-23)
DX: K76.6 Portal hypertension (principal); I85.11 Secondary esophageal varices with bleeding; J18.9 Pneumonia, unspecified organism; D68.9 Coagulation defect, unspecified; D68.4 Acquired coagulation factor deficiency; E87.8 Other disorders of electrolyte and fluid balance, not elsewhere classified; I80.9 Phlebitis and thrombophlebitis of unspecified site; K85.90 Acute pancreatitis without necrosis or infection, unspecified; K70.9 Alcoholic liver disease, unspecified; I45.81 Long QT syndrome; K70.31 Alcoholic cirrhosis of liver with ascites; F10.20 Alcohol dependence, uncomplicated; D63.8 Anemia in other chronic diseases classified elsewhere; F41.9 Anxiety disorder, unspecified; F12.90 Cannabis use, unspecified, uncomplicated; F17.210 Nicotine dependence, cigarettes, uncomplicated; K31.89 Other diseases of stomach and duodenum; Z88.1 Allergy status to other antibiotic agents; Z88.6 Allergy status to analgesic agent; Z79.899 Other long term (current) drug therapy; Z79.01 Long term (current) use of anticoagulants; Z79.82 Long term (current) use of aspirin; Z81.1 Family history of alcohol abuse and dependence; Z82.3 Family history of stroke
CPT/HCPCS: 36415; 43244; 49083; 71045; 74176; 80048; 80053; 81003; 82150; 82272; 82948; 83615; 83690; 83735; 84100; 84132; 85025; 85027; 85610; 85730; 86885; 86900; 86901; 86920; 87070; 87075; 89051; 90732; 93005; 96361; 96365; 96366; 96367; 96374; 99285; A4620; C9113; G0500; J0690; J0696; J1200; J1956; J2060; J2250; J2270; J2354; J2405; J3010; J3475; J3480; J3490; J7030; J7042; J7060; P9016; Q2037

== ENCOUNTER 2017-10-28 08:52 | Emergency (ER) | payer MEDICAID ==
[~2017-10-28] VITALS: Ht 162.6 cm; Wt 55.6 kg
[~2017-10-28 08:52] MED LIST changes: +CLON-528 PO; +FOLI0.4T2 PO; +PANT-47 PO; +PROP10TA10 PO; +THI100T PO
[2017-10-28 10:11] LABS: HEMATOCRIT 28.4 % (35.0-45.0); HEMOGLOBIN 9.3 g/dl (12.0-16.0); MEAN CORPUSCULAR HGB CONC 32.8 % (33.0-36.5); MEAN CORPUSCULAR VOLUME 79.4 FL (78-98); MEAN PLATELET VOLUME 10.7 FL (7.4-10.4); PLATELET COUNT 218 X10'3 (140-440); RED BLOOD COUNT 3.58 X10'6 (4.20-5.60); RED CELL DISTRIBUTION WIDTH 27.1 % (11.5-14.5); WHITE BLOOD COUNT 12.2 X10'3 (4.5-11.0)
[2017-10-28 10:26] LABS: ALANINE AMINOTRANSFERASE 39 U/L (12-78); ALBUMIN 2.3 G/DL (3.4-5.0); ALKALINE PHOSPHATASE 180 IU/L (46-116); ANION GAP 9 (8-16); BILIRUBIN,TOTAL 9.2 MG/DL (0.1-1.0); BLOOD UREA NITROGEN 11 MG/DL (7-18); CALCIUM 8.4 MG/DL (8.5-10.1); CHLORIDE 103 MMOL/L (99-107); CREATININE 0.55 MG/DL (0.40-0.90); GLUCOSE 120 MG/DL (70-104); SODIUM 136 MMOL/L (135-145); TOTAL CARBON DIOXIDE 24.4 MMOL/L (24-32); eGFR > 90 ML/MIN
[2017-10-28 10:29] LABS: ALBUMIN/GLOBULIN RATIO 0.4 (1.1-1.5); ASPARTATE AMINO TRANSFERASE 102 U/L (10-37); POTASSIUM 4.3 MMOL/L (3.5-5.1); TOTAL PROTEIN 7.5 G/DL (6.4-8.2)
[2017-10-28 10:30] LABS: ANISOCYTOSIS 3+; HYPOCHROMASIA 1+; PLATELET ESTIMATE NORMAL; TARGET CELLS 2+; TOTAL CELLS COUNTED 100
[2017-10-28 10:31] LABS: INR 1.4 INR; POLYCHROMASIA 1+; PROTHROMBIN TIME 13.3 SECONDS (9.0-12.0); SCHISTOCYTES FEW; TOXIC VACUOLATION 1+
[2017-10-28] MEDS: acetaminophen 325mg tablet PO ONE (10:32)
[2017-10-28] MEDS: cyclobenzaprine 10mg tablet PO ONE (10:32)
[2017-10-28 12:17] VITALS: BP 144/84
== END 2017-10-28 13:09 | disposition home or self-care (01) ==
LOC: ER 08:52
DX: K70.31 Alcoholic cirrhosis of liver with ascites (principal); K42.9 Umbilical hernia without obstruction or gangrene; F12.10 Cannabis abuse, uncomplicated; Z56.0 Unemployment, unspecified; Z88.1 Allergy status to other antibiotic agents; Z88.5 Allergy status to narcotic agent; Z79.899 Other long term (current) drug therapy
CPT/HCPCS: 36415; 49083; 80053; 85025; 85610; 93005; 99285; A6257

== ENCOUNTER 2018-01-03 19:24 | Emergency (ER) | payer MEDICAID ==
[~2018-01-03] VITALS: Ht 162.6 cm; Wt 50.0 kg
[~2018-01-03 19:24] MED LIST changes: -CLON-528 PO; -FOLI0.4T2 PO; +FOLIC ACID PO; +HYDR50TA65 PO; -PANT-47 PO; +PANT40TA4 PO; -THI100T PO
[2018-01-03 19:52] LABS: BASOPHILS % (AUTO) 0 % (0-1); EOSINOPHILS # (AUTO) 0.1 X10'3 (0-0.9); EOSINOPHILS % (AUTO) 0.7 % (0-6); HEMATOCRIT 29.8 % (35.0-45.0); HEMOGLOBIN 9.9 g/dl (12.0-16.0); LYMPHOCYTES # (AUTO) 1.2 X10'3 (1.1-4.8); LYMPHOCYTES % (AUTO) 7.6 % (21-51); MEAN CORPUSCULAR HGB CONC 33.3 % (33.0-36.5); MEAN CORPUSCULAR VOLUME 77.9 FL (78-98); MEAN PLATELET VOLUME 9.9 FL (7.4-10.4); MONOCYTES # (AUTO) 1.8 X10'3 (0-0.9); MONOCYTES % (AUTO) 10.7 % (2-12); NEUTROPHILS # (AUTO) 13.3 X10'3 (1.8-7.7); PLATELET COUNT 105 X10'3 (140-440); RED BLOOD COUNT 3.83 X10'6 (4.20-5.60); RED CELL DISTRIBUTION WIDTH 21.6 % (11.5-14.5); WHITE BLOOD COUNT 16.5 X10'3 (4.5-11.0)
[2018-01-03 19:59] LABS: INR 1.4 INR; PARTIAL THROMBOPLASTIN TIME 36 SECONDS (22-32)
[2018-01-03 20:01] LABS: ALANINE AMINOTRANSFERASE 18 U/L (12-78); ALBUMIN 2.7 G/DL (3.4-5.0); ALBUMIN/GLOBULIN RATIO 0.5 (1.1-1.5); ALKALINE PHOSPHATASE 96 IU/L (46-116); ANION GAP 11 (8-16); ASPARTATE AMINO TRANSFERASE 29 U/L (10-37); BILIRUBIN,TOTAL 2.8 MG/DL (0.1-1.0); BLOOD UREA NITROGEN 13 MG/DL (7-18); BUN/CREATININE RATIO 13.3 (6.6-38.0); CALCIUM 8.8 MG/DL (8.5-10.1); CHLORIDE 91 MMOL/L (99-107); CREATININE 0.98 MG/DL (0.40-0.90); GLUCOSE 122 MG/DL (70-104); MAGNESIUM 1.4 MG/DL (1.5-2.4); POTASSIUM 3.2 MMOL/L (3.5-5.1); SODIUM 125 MMOL/L (135-145); TOTAL CARBON DIOXIDE 23.5 MMOL/L (24-32); TOTAL PROTEIN 7.9 G/DL (6.4-8.2); eGFR 62 ML/MIN
[2018-01-03 20:35] LABS: TOTAL CELLS COUNTED 100
[2018-01-03 20:36] LABS: ANISOCYTOSIS 3+; MICROCYTOSIS 1+; PLATELET ESTIMATE NORMAL
[2018-01-03 20:37] LABS: HYPOCHROMASIA 1+; POLYCHROMASIA 1+; SPHEROCYTES 1+; TARGET CELLS 1+
[2018-01-03 20:59] LABS: CLARITY,URINE SLIGHTLY CLOUDY (Clear); COLOR,URINE YELLOW (Yellow); GLUCOSE, URINE NEGATIVE (Neg); KETONES,URINE NEGATIVE (Neg); LEUKOCYTE ESTERASE ,URINE SMALL (Neg); NITRITES, URINE NEGATIVE (Neg); OCCULT BLOOD,URINE MODERATE (Neg); PH,URINE 7.5 (4.8-8.0); PROTEIN,URINE >=300 mg/dl (Neg); UROBILINOGEN,URINE >=8.0 E.U/dL (0.2-1.0)
[2018-01-03 21:06] LABS: UA COLLECTION TYPE CLN CATCH MIDSTREAM
[2018-01-03 21:13] LABS: BACTERIA,URINE 3+ /HPF (Neg); WBC,URINE 30-50 /HPF (0-4)
[2018-01-03 21:14] LABS: MUCUS STRANDS FEW /LPF (Neg); SQUAMOUS EPITHELIAL CELL,UR FEW /LPF (FEW)
[2018-01-03] MEDS ORDERED: CefTRIAXone 2gm/D5W 50ml 50 ML IV ONE (21:40)
[2018-01-03] MEDS ORDERED: morphine 4 MG/ML inj SYRINge IV ONE (21:45)
[2018-01-03] MEDS ORDERED: acetaminophen 325mg tablet PO ONE (21:45)
[2018-01-03] MEDS ORDERED: levetiracetam inj 1,000 MG in normal saline 100ml IV soln 90 ML IV STA (22:17)
[2018-01-03 22:39] LABS: ETHANOL < 0.010 GM/DL (0.0-0.010)
[2018-01-03 22:42] LABS: URINE AMPHETAMINE SCREEN NEGATIVE (Neg); URINE BARBITUATE SCREEN NEGATIVE (Neg); URINE BENZODIAZEPINES SCREEN POSITIVE (Neg); URINE CANNABINOID SCREEN NEGATIVE (Neg); URINE COCAINE SCREEN NEGATIVE (Neg); URINE METHADONE SCREEN NEGATIVE (Neg); URINE OPIATE SCREEN NEGATIVE (Neg); URINE PHENCYCLIDINE SCREEN NEGATIVE (Neg)
[2018-01-04] MEDS ORDERED: normal saline 500ml IV soln 500 ML IV ONE (01:15)
[2018-01-04 01:28] VITALS: BP 82/52
== END 2018-01-04 02:01 | disposition short-term general hospital (02) ==
LOC: ER 19:24
DX: G40.909 Epilepsy, unspecified, not intractable, without status epilepticus (principal); N39.0 Urinary tract infection, site not specified; R41.844 Frontal lobe and executive function deficit; F12.10 Cannabis abuse, uncomplicated; Z79.899 Other long term (current) drug therapy; Z88.1 Allergy status to other antibiotic agents; Z56.0 Unemployment, unspecified
CPT/HCPCS: 36415; 70450; 71045; 80053; 80305; 80320; 81001; 83605; 83735; 84145; 85025; 85610; 85730; 87040; 87088; 96365; 96367; 96375; 99285; J0696; J1953; J2270; J7030; 87077

== ENCOUNTER 2018-05-26 07:37 | Emergency (ER) | payer MEDICAID ==
[~2018-05-26] VITALS: Ht 162.6 cm; Wt 58.7 kg
[~2018-05-26 07:37] MED LIST changes: -SPIR50TA3 PO; +SPIR50TA5 PO
[2018-05-26 07:49] VITALS: BP 118/78
[2018-05-26] MEDS ORDERED: EMOL78CR TOP (08:10)
[2018-05-26] MEDS ORDERED: KEN0.1O TP (08:10)
[2018-05-26] MEDS ORDERED: DOXY100C43 PO (08:10)
[2018-05-27 05:21] LABS: RPR Non Reactive (Non Reactive)
== END 2018-05-26 09:25 | disposition home or self-care (01) ==
LOC: ER 07:37
DX: L30.9 Dermatitis, unspecified (principal); R23.8 Other skin changes; F12.90 Cannabis use, unspecified, uncomplicated; F17.210 Nicotine dependence, cigarettes, uncomplicated; Z88.1 Allergy status to other antibiotic agents; Z79.899 Other long term (current) drug therapy; Z56.0 Unemployment, unspecified
CPT/HCPCS: 36415; 86592; 99284

== ENCOUNTER 2018-05-31 07:07 | Day surgery (SDC) | payer MEDICAID ==
[~2018-05-31] VITALS: Ht 162.6 cm; Wt 58.6 kg
[~2018-05-31 07:07] MED LIST changes: +DOXY100C43 PO; +EMOL78CR TOP; +KEN0.1O TP
[2018-05-31 07:15] VITALS: BP 127/87
[2018-05-31] MEDS ORDERED: FURO-149 PO (07:35)
[2018-05-31] MEDS ORDERED: LEVE10002 PO (07:36)
[2018-05-31] MEDS ORDERED: fentaNYL/PF 50MCG/1 ML 2ML syringe ONE ×2 (08:18→09:08)
[2018-05-31] MEDS ORDERED: LIDOcaine Viscous 15ml cup ONE (08:18)
[2018-05-31] MEDS ORDERED: MIDAZolam 5mg/5ml vial ONE (08:18)
[2018-05-31 09:22] VITALS: BP 108/75
[2018-05-31 09:32] VITALS: BP 119/70
[2018-05-31 09:42] VITALS: BP 116/69
[2018-05-31 09:52] VITALS: BP 108/80
== END 2018-05-31 10:05 | disposition home or self-care (01) ==
LOC: GI LAB 07:07
PROVIDERS: ATTEND Internal Medicine Gastroenterology
DX: I85.00 Esophageal varices without bleeding (principal); K76.6 Portal hypertension; K31.89 Other diseases of stomach and duodenum
CPT/HCPCS: 43244; 99152; 99153; J2250; J3010; A4620

== ENCOUNTER 2018-06-12 15:52 | Emergency (ER) | payer MEDICAID ==
[~2018-06-12] VITALS: Ht 162.6 cm; Wt 61.0 kg
[~2018-06-12 15:52] MED LIST changes: -EMOL78CR TOP; -HYDR50TA65 PO; +LEVE10002 PO; -PROP10TA10 PO; -SPIR50TA5 PO
[2018-06-12 15:54] VITALS: BP 114/75
[2018-06-12] MEDS ORDERED: LORazepam 2 mg/ml vial IV ONE (17:00)
[2018-06-12] MEDS ORDERED: levetiracetam inj 1,000 MG in normal saline 100ml IV soln 90 ML IV ONE (17:00)
[2018-06-12] MEDS ORDERED: ondansetron/PF 4mg/2ml inj IV ONE (17:00)
[2018-06-12] MEDS ORDERED: acetaminophen 325mg tablet PO ONE (17:15)
[2018-06-12 17:17] LABS: HEMATOCRIT 30.8 % (35.0-45.0); HEMOGLOBIN 9.6 g/dl (12.0-16.0); MEAN CORPUSCULAR HEMOGLOBIN 22.7 PG (27.0-31.0); MEAN CORPUSCULAR VOLUME 73.4 FL (78-98); PLATELET COUNT 159 X10'3 (140-440); RED CELL DISTRIBUTION WIDTH 21.9 % (11.5-14.5); WHITE BLOOD COUNT 7.3 X10'3 (4.5-11.0)
[2018-06-12 17:29] LABS: ALANINE AMINOTRANSFERASE 59 U/L (12-78); ALBUMIN 3.4 G/DL (3.4-5.0); ALBUMIN/GLOBULIN RATIO 0.7 (1.1-1.5); ALKALINE PHOSPHATASE 196 IU/L (46-116); ANION GAP 13 (8-16); ASPARTATE AMINO TRANSFERASE 129 U/L (10-37); BILIRUBIN,TOTAL 1.9 MG/DL (0.1-1.0); BLOOD UREA NITROGEN 4 MG/DL (7-18); BUN/CREATININE RATIO 5.9 (6.6-38.0); CALCIUM 8.7 MG/DL (8.5-10.1); CHLORIDE 101 MMOL/L (99-107); CREATININE 0.68 MG/DL (0.40-0.90); GLUCOSE 98 MG/DL (70-104); POTASSIUM 3.1 MMOL/L (3.5-5.1); SODIUM 140 MMOL/L (135-145); TOTAL CARBON DIOXIDE 26.3 MMOL/L (24-32); TOTAL PROTEIN 8.1 G/DL (6.4-8.2); eGFR > 90 ML/MIN
[2018-06-12 17:41] LABS: ANISOCYTOSIS 3+; HYPOCHROMASIA 1+; MICROCYTOSIS 1+; PLATELET ESTIMATE NORMAL; TOTAL CELLS COUNTED 100
[2018-06-12 17:43] LABS: POIKILOCYTOSIS 1+; TARGET CELLS FEW
[2018-06-12 18:23] LABS: CLARITY,URINE SLIGHTLY CLOUDY (Clear); COLOR,URINE YELLOW (Yellow); GLUCOSE, URINE NEGATIVE (Neg); KETONES,URINE NEGATIVE (Neg); LEUKOCYTE ESTERASE ,URINE NEGATIVE (Neg); NITRITES, URINE NEGATIVE (Neg); OCCULT BLOOD,URINE NEGATIVE (Neg); PROTEIN,URINE NEGATIVE (Neg)
[2018-06-12 18:24] LABS: UA COLLECTION TYPE CLN CATCH MIDSTREAM; URINE HCG NEGATIVE (NEG)
[2018-06-12 18:30] LABS: URINE AMPHETAMINE SCREEN POSITIVE (Neg); URINE BARBITUATE SCREEN NEGATIVE (Neg); URINE BENZODIAZEPINES SCREEN NEGATIVE (Neg); URINE CANNABINOID SCREEN NEGATIVE (Neg); URINE COCAINE SCREEN NEGATIVE (Neg); URINE METHADONE SCREEN NEGATIVE (Neg); URINE OPIATE SCREEN NEGATIVE (Neg); URINE PHENCYCLIDINE SCREEN NEGATIVE (Neg)
[2018-06-12 18:30] LABS: ETHANOL 0.246 GM/DL (0.0-0.010)
[2018-06-12 18:36] LABS: MUCUS STRANDS NONE SEEN /LPF (Neg); SQUAMOUS EPITHELIAL CELL,UR FEW /LPF (FEW)
[2018-06-12 18:37] LABS: BACTERIA,URINE NONE SEEN /HPF (Neg); RBC,URINE NONE SEEN /HPF (0-2); WBC,URINE NONE SEEN /HPF (0-4)
[2018-06-12] MEDS ORDERED: potassium Cl 20 mEq SR tablet PO STA (19:28)
[2018-06-12] MEDS ORDERED: normal saline 1000ml 1,000 ML IV ONE (19:30)
[2018-06-12] MEDS ORDERED: thiamine 100mg/ml 2ml inj. IV ONE (19:30)
[2018-06-12] MEDS ORDERED: potassium 10mEq/100ml NS w/LIDOcaine (10mg/bag) IV ONE (19:30)
[2018-06-12] MEDS ORDERED: cyanocobalamin 1,000 mcg/ml inj IM ONE (19:30)
[2018-06-12] MEDS ORDERED: multivitamins, therapeutics tablet PO ONE (19:30)
[2018-06-12] MEDS: magnesium 1gm/100ml D5W IVPB 100 ML IV SCH ×2 (19:53→20:30)
== END 2018-06-12 21:08 | disposition home or self-care (01) ==
LOC: ER 15:53
DX: G40.909 Epilepsy, unspecified, not intractable, without status epilepticus (principal); F12.90 Cannabis use, unspecified, uncomplicated; L53.8 Other specified erythematous conditions; F15.90 Other stimulant use, unspecified, uncomplicated; Z56.0 Unemployment, unspecified; Z88.1 Allergy status to other antibiotic agents; Z79.899 Other long term (current) drug therapy
CPT/HCPCS: 36415; 70450; 80053; 80305; 80320; 81001; 81025; 85025; 93005; 96365; 96367; 96372; 96375; 99285; J1953; J2060; J2405; J3411; J3420; J3480; J7030

== ENCOUNTER 2018-07-05 06:25 | Day surgery (SDC) | payer MEDICAID ==
[~2018-07-05] VITALS: Ht 162.6 cm; Wt 59.1 kg
[~2018-07-05 06:25] MED LIST changes: -DOXY100C43 PO; -KEN0.1O TP
[2018-07-05 06:35] VITALS: BP 110/74
[2018-07-05] MEDS ORDERED: LIDOcaine Viscous 15ml cup ONE (06:43)
[2018-07-05] MEDS ORDERED: MIDAZolam 5mg/5ml vial ONE (06:43)
[2018-07-05] MEDS ORDERED: fentaNYL/PF 50MCG/1 ML 2ML syringe ONE ×2 (06:43→07:50)
[2018-07-05 08:12] VITALS: BP 118/74
[2018-07-05 08:22] VITALS: BP 112/75
[2018-07-05 08:32] VITALS: BP 119/76
== END 2018-07-05 08:47 | disposition home or self-care (01) ==
LOC: GI LAB 06:25
PROVIDERS: ATTEND Internal Medicine Gastroenterology
DX: I85.00 Esophageal varices without bleeding (principal); K76.6 Portal hypertension; K31.89 Other diseases of stomach and duodenum; K74.60 Unspecified cirrhosis of liver; F32.9 Major depressive disorder, single episode, unspecified; F41.8 Other specified anxiety disorders; F17.210 Nicotine dependence, cigarettes, uncomplicated; I81 Portal vein thrombosis; F10.10 Alcohol abuse, uncomplicated; Z86.19 Personal history of other infectious and parasitic diseases; Z87.2 Personal history of diseases of the skin and subcutaneous tissue; Z88.1 Allergy status to other antibiotic agents; Z86.69 Personal history of other diseases of the nervous system and sense organs; Z87.820 Personal history of traumatic brain injury; Z98.890 Other specified postprocedural states; Z79.899 Other long term (current) drug therapy; Z81.1 Family history of alcohol abuse and dependence; Z82.69 Family history of other diseases of the musculoskeletal system and connective tissue; Z82.3 Family history of stroke
CPT/HCPCS: 43244; 99152; J2250; J3010; J7030; 99153; A4620

== ENCOUNTER 2018-10-31 06:14 | Day surgery (SDC) | payer MEDICAID ==
[~2018-10-31] VITALS: Ht 162.6 cm; Wt 135.0 kg
[2018-10-31 06:26] VITALS: BP 97/67
[2018-10-31] MEDS ORDERED: MIDAZolam 5mg/5ml vial ONE ×2 (07:03→07:51)
[2018-10-31] MEDS ORDERED: fentaNYL/PF 50MCG/1 ML 2ML syringe ONE ×2 (07:03→07:47)
[2018-10-31] MEDS ORDERED: LIDOcaine Viscous 15ml cup ONE (07:03)
[2018-10-31 08:07] VITALS: BP 133/75
[2018-10-31 08:17] VITALS: BP 120/77
[2018-10-31 08:27] VITALS: BP 113/74
[2018-10-31 08:37] VITALS: BP 116/70
== END 2018-10-31 09:10 | disposition home or self-care (01) ==
LOC: GI LAB 06:14
PROVIDERS: ATTEND Internal Medicine Gastroenterology
DX: I85.00 Esophageal varices without bleeding (principal); K76.6 Portal hypertension; K31.89 Other diseases of stomach and duodenum
CPT/HCPCS: 43244; 99152; J2250; J3010; J7030; A4620

== ENCOUNTER 2019-05-15 07:09 | Day surgery (SDC) | payer MEDICAID ==
[~2019-05-15] VITALS: Ht 162.6 cm; Wt 52.7 kg
[~2019-05-15 07:09] MED LIST changes: +FOLI1TAB16 PO; -FOLIC ACID PO; -FURO-149 PO; +FURO40TA4 PO; +LACT1CAP26 PO; -LEVE10002 PO; +LEVE10006 PO; +MULT-1074 PO; +PROP10TA10 PO; +SPIR50TA5 PO; +THIA100T66 PO; +WOOL454C TP
[2019-05-15 07:19] VITALS: BP 121/81
[2019-05-15] MEDS ORDERED: FOLI1TAB16 PO (07:29)
[2019-05-15] MEDS ORDERED: LACTC PO (07:30)
[2019-05-15] MEDS ORDERED: MULT-933 PO (07:30)
[2019-05-15] MEDS ORDERED: PANT-47 PO (07:31)
[2019-05-15] MEDS ORDERED: THIA100T66 PO (07:34)
[2019-05-15] MEDS ORDERED: PROP10TA10 PO (07:34)
[2019-05-15] MEDS ORDERED: fentaNYL/PF 50MCG/1 ML 2ML syringe ONE (07:43)
[2019-05-15] MEDS ORDERED: LIDOcaine Viscous 15ml cup ONE (07:43)
[2019-05-15] MEDS ORDERED: MIDAZolam 5mg/5ml vial ONE (07:43)
[2019-05-15] MEDS ORDERED: diphenhydrAMINE 50 mg/ml inj ONE (08:06)
[2019-05-15 08:26] VITALS: BP 162/84
[2019-05-15 08:36] VITALS: BP 164/81
[2019-05-15 08:46] VITALS: BP 164/81
[2019-05-15 08:56] VITALS: BP 162/75
== END 2019-05-15 09:03 | disposition home or self-care (01) ==
LOC: GI LAB 07:09
PROVIDERS: ATTEND Internal Medicine Gastroenterology
DX: I85.00 Esophageal varices without bleeding (principal); K31.89 Other diseases of stomach and duodenum; K76.6 Portal hypertension; K29.80 Duodenitis without bleeding; Z79.899 Other long term (current) drug therapy
CPT/HCPCS: 43244; 99152; J1200; J2250; J3010; J7040; A4620

== ENCOUNTER 2019-06-07 10:15 | Inpatient (IN) | payer MEDICAID ==
[~2019-06-07] VITALS: Ht 162.6 cm; Wt 54.0 kg
[2019-06-07] VITALS (8 sets, daily range): BP systolic 86–102; BP diastolic 60–67
[~2019-06-07 10:15] MED LIST changes: -LACT1CAP26 PO; +LACTC PO; -MULT-1074 PO; +MULT-933 PO; +PANT-47 PO; -PANT40TA4 PO; -SPIR50TA5 PO; -WOOL454C TP
[2019-06-07 11:15] LABS: BASOPHILS # (AUTO) 0.1 X10'3 (0-0.2); BASOPHILS % (AUTO) 0.9 % (0-1); EOSINOPHILS % (AUTO) 0.2 % (0-6); HEMATOCRIT 26.9 % (35.0-45.0); HEMOGLOBIN 8.6 g/dl (12.0-16.0); LYMPHOCYTES # (AUTO) 1.8 X10'3 (1.1-4.8); LYMPHOCYTES % (AUTO) 15.1 % (21-51); MEAN CORPUSCULAR HEMOGLOBIN 24.7 PG (27.0-31.0); MEAN CORPUSCULAR HGB CONC 31.8 g/dL (33.0-36.5); MEAN CORPUSCULAR VOLUME 77.9 FL (78-98); MEAN PLATELET VOLUME 9.3 FL (7.4-10.4); MONOCYTES # (AUTO) 1.2 X10'3 (0-0.9); MONOCYTES % (AUTO) 9.7 % (2-12); NEUTROPHILS # (AUTO) 8.9 X10'3 (1.8-7.7); NEUTROPHILS % (AUTO) 74.1 % (42-75); PLATELET COUNT 175 X10'3 (140-440); RED BLOOD COUNT 3.46 X10'6 (4.20-5.60); RED CELL DISTRIBUTION WIDTH 20.8 % (11.5-14.5)
[2019-06-07 11:56] LABS: ALANINE AMINOTRANSFERASE 30 U/L (12-78); ALBUMIN 2.6 G/DL (3.4-5.0); ALBUMIN/GLOBULIN RATIO 0.6 (1.1-1.5); ALKALINE PHOSPHATASE 101 IU/L (46-116); ANION GAP 12 (8-16); ASPARTATE AMINO TRANSFERASE 51 U/L (10-37); BILIRUBIN,TOTAL 1.5 MG/DL (0.1-1.0); BLOOD UREA NITROGEN 30 MG/DL (7-18); BUN/CREATININE RATIO 40.5 (6.6-38.0); CHLORIDE 100 MMOL/L (99-107); CREATININE 0.74 MG/DL (0.40-0.90); GLUCOSE 111 MG/DL (70-104); LIPASE 67 U/L (73-393); POTASSIUM 3.5 MMOL/L (3.5-5.1); SODIUM 136 MMOL/L (135-145); TOTAL CARBON DIOXIDE 24.1 MMOL/L (24-32); TOTAL PROTEIN 6.8 G/DL (6.4-8.2); eGFR 85 ML/MIN
[2019-06-07] MEDS ORDERED: normal saline 1000ml 1,000 ML IV ONE (12:05)
[2019-06-07 12:06] LABS: PLATELET ESTIMATE NORMAL
[2019-06-07 12:07] LABS: POLYCHROMASIA 1+; SPHEROCYTES FEW
[2019-06-07 12:10] LABS: HYPOCHROMASIA 2+
[2019-06-07] MEDS ORDERED: pantoprazole 40 MG vial IV ONE (12:10)
[2019-06-07] MEDS ORDERED: octreotide inj. 1,250 MCG in normal saline 250ml IV soln 250 ML IV SCH (12:10)
[2019-06-07] MEDS ORDERED: ondansetron/PF 4mg/2ml inj IV ONE (12:10)
[2019-06-07 12:14] LABS: ANISOCYTOSIS 2+; MICROCYTOSIS FEW
[2019-06-07 12:15] LABS: ELLIPTOCYTES FEW
[2019-06-07] MEDS ORDERED: tranexamic acid 100mg/ml inj. IV ONE (12:35)
[2019-06-07] MEDS: pantoprazole 40MG/NS 100ML BAG 100 ML IV SCH ×2 (12:42→21:00)
[2019-06-07 12:45] LABS: ETHANOL < 0.010 GM/DL (0.0-0.010)
[2019-06-07] MEDS ORDERED: tranexamic acid inj. 1,000 MG in normal saline 100ml IV soln 100 ML IV ONE (12:50)
[2019-06-07] MEDS ORDERED: MIDAZolam 5mg/5ml vial ONE (12:56)
[2019-06-07] MEDS ORDERED: fentaNYL/PF 50MCG/1 ML 2ML syringe ONE (12:56)
[2019-06-07] MEDS ORDERED: LIDOcaine Viscous 15ml cup ONE (12:57)
--- NOTE | 2019-06-07 13:04 | NUR ---
Pt taken to GI by SANTIAGO Diaz, bedside report given to prior to leaving
--- NOTE | 2019-06-07 13:16 | NUR ---
assumed care of pt from Michelle RN, pt is in GI lab
--- NOTE | 2019-06-07 13:38 | NUR ---
MOTHER'S PHONE NUMBER [phone]
--- NOTE | 2019-06-07 15:46 | NUR ---
pt is back from GI lab
--- NOTE | 2019-06-07 16:44 | NUR ---
pt is sleeping, resp even and unlabored, waiting for bed assignment
[2019-06-07] MEDS ORDERED: magnesium hydroxide 30ml (MOM) UD suspension PO PRN (17:25)
[2019-06-07] MEDS ORDERED: ondansetron/PF 4mg/2ml inj IV PRN (17:25)
[2019-06-07] MEDS ORDERED: mag hydrox/Alum hydrox/simeth 30ml oral suspension PO PRN (17:25)
[2019-06-07] MEDS ORDERED: morphine 2 MG/ML inj. syringe IV PRN ×2 (17:25)
[2019-06-07] MEDS ORDERED: HYDROcodone/acetaminophen 5mg/325mg tablet PO PRN (17:25)
[2019-06-07] MEDS ORDERED: acetaminophen 325mg tablet PO PRN (17:25)
--- NOTE | 2019-06-07 17:35 | NUR ---
pt continues to rest quietly on gurney, resp even and unlabored
[2019-06-07] MEDS ORDERED: FOLI0.4T14 PO (17:48)
--- NOTE | 2019-06-07 18:20 | NUR ---
Dr Arciniega at bedside to eval pt,
[2019-06-07] MEDS ORDERED: SPIR50TA5 PO (18:34)
[2019-06-07] MEDS ORDERED: PROP10TA10 PO (18:36)
--- NOTE | 2019-06-07 19:11 | NUR ---
Went into room to hook her up to zoll and she hollared at me "get me water, I need it...or ice. If you don't I'm just leaving." She is NPO but I gave her some ice chips.
--- NOTE | 2019-06-07 19:14 | NUR ---
report to Sarah HENDERSON
--- NOTE | 2019-06-07 19:30 | NUR ---
Patient in room 4006. I have received report from ER Nurse Carla HENDERSON and had the opportunity to ask questions and assume patient care.
[2019-06-07] MEDS: propranolol 10mg tablet PO SCH (20:00)
[2019-06-07] MEDS ORDERED: propranolol 10mg tablet PO SCH (20:00)
[2019-06-07] MEDS: HYDROcodone/acetaminophen 10/325mg tab PO PRN (20:11)
[2019-06-07] MEDS: lactobacillus rhamnosus 10,000 MMU CELLS/CAPSULE PO SCH (20:12)
[2019-06-07] MEDS: levetiracetam 250mg tablet PO SCH (20:13)
[2019-06-07] MEDS ORDERED: lactulose 20gm/30ml cup PO ONE (21:00)
--- NOTE | 2019-06-07 21:00 | NUR ---
Patient refused to take lactulose. encouraged patient and educated patient on the importance of taking this medication. patient was adamant about not taking medication. will continue to monitor patient.
[2019-06-07] MEDS: dextrose 5%-1/2 normal saline 1,000 ML IV SCH (22:22)
[2019-06-08] VITALS (15 sets, daily range): BP systolic 82–103; BP diastolic 48–68
[2019-06-08] MEDS: pantoprazole 40MG/NS 100ML BAG 100 ML IV SCH ×5 (01:25→22:13)
[2019-06-08] MEDS: dextrose 5%-1/2 normal saline 1,000 ML IV SCH (03:23)
[2019-06-08] MEDS: HYDROcodone/acetaminophen 10/325mg tab PO PRN (04:50)
[2019-06-08 06:18] LABS: BASOPHILS # (AUTO) 0.1 X10'3 (0-0.2); BASOPHILS % (AUTO) 1.5 % (0-1); EOSINOPHILS # (AUTO) 0.6 X10'3 (0-0.9); EOSINOPHILS % (AUTO) 6.3 % (0-6); LYMPHOCYTES # (AUTO) 2.3 X10'3 (1.1-4.8); MEAN CORPUSCULAR HEMOGLOBIN 25.4 PG (27.0-31.0); MEAN CORPUSCULAR HGB CONC 32.6 g/dL (33.0-36.5); MEAN CORPUSCULAR VOLUME 77.9 FL (78-98); MEAN PLATELET VOLUME 9.6 FL (7.4-10.4); MONOCYTES % (AUTO) 10.8 % (2-12); NEUTROPHILS # (AUTO) 5.1 X10'3 (1.8-7.7); NEUTROPHILS % (AUTO) 56.4 % (42-75); PLATELET COUNT 125 X10'3 (140-440); RED BLOOD COUNT 2.58 X10'6 (4.20-5.60); RED CELL DISTRIBUTION WIDTH 21.3 % (11.5-14.5)
[2019-06-08 06:28] LABS: ALANINE AMINOTRANSFERASE 26 U/L (12-78); ALBUMIN 2.1 G/DL (3.4-5.0); ALBUMIN/GLOBULIN RATIO 0.6 (1.1-1.5); ALKALINE PHOSPHATASE 72 IU/L (46-116); ANION GAP 5 (8-16); ASPARTATE AMINO TRANSFERASE 46 U/L (10-37); BILIRUBIN,TOTAL 1.2 MG/DL (0.1-1.0); BLOOD UREA NITROGEN 20 MG/DL (7-18); BUN/CREATININE RATIO 23.5 (6.6-38.0); CALCIUM 6.8 MG/DL (8.5-10.1); CHLORIDE 103 MMOL/L (99-107); CREATININE 0.85 MG/DL (0.40-0.90); GLUCOSE 432 MG/DL (70-104); POTASSIUM 3.5 MMOL/L (3.5-5.1); SODIUM 134 MMOL/L (135-145); TOTAL CARBON DIOXIDE 25.8 MMOL/L (24-32); TOTAL PROTEIN 5.5 G/DL (6.4-8.2); eGFR 72 ML/MIN
--- NOTE | 2019-06-08 06:28 | NUR ---
Gave report to Tanna HENDERSON.
[2019-06-08 06:42] LABS: HEMATOCRIT 20.1 % (35.0-45.0); HEMOGLOBIN 6.5 g/dl (12.0-16.0)
[2019-06-08 06:43] LABS: PLATELET ESTIMATE DECREASED
[2019-06-08 06:44] LABS: ANISOCYTOSIS 3+; ELLIPTOCYTES FEW; HYPOCHROMASIA 1+; MICROCYTOSIS 1+; POLYCHROMASIA 1+
--- NOTE | 2019-06-08 06:51 | NUR ---
Patient in room ORTHO 4006. I have received report from SANTIAGO Cope and had the opportunity to ask questions and assume patient care.
--- NOTE | 2019-06-08 06:56 | NUR ---
Lissy Mederos Rm [id number] Critical Lab Hgb 6.5 Hct 20.1 SANTIAGO Cisse ext [phone] * page to El[facility]
--- NOTE | 2019-06-08 07:19 | NUR ---
Lissy Mederos [id number] Critcal Lab Glucose 432 SANTIAGO Cisse Ext [phone] *page to [place]
[2019-06-08] MEDS: lactobacillus rhamnosus 10,000 MMU CELLS/CAPSULE PO SCH ×2 (08:00→19:41)
[2019-06-08] MEDS: folic acid 0.4mg tablet PO SCH (08:00)
[2019-06-08] MEDS: spironolactone 50 MG tablet PO SCH (08:00)
[2019-06-08] MEDS: thiamine 100mg tablet PO SCH (08:00)
[2019-06-08] MEDS: propranolol 10mg tablet PO SCH ×2 (08:00→19:41)
[2019-06-08] MEDS: levetiracetam 250mg tablet PO SCH ×2 (08:00→19:41)
[2019-06-08] MEDS: multivitamins, therapeutics tablet PO SCH (08:00)
[2019-06-08] MEDS ORDERED: FLU VACC QS2019-20(6MOS UP)/PF 60 MCG/0.5 ML SYRINGE IMVAC ONE (10:00)
[2019-06-08] MEDS: lactulose 20gm/30ml cup PO SCH ×2 (14:00→19:41)
[2019-06-08] MEDS: ondansetron/PF 4mg/2ml inj IV PRN (16:43)
--- NOTE | 2019-06-08 18:15 | NUR ---
Problems reprioritized. Patient report given, questions answered & plan of care reviewed with SANTIAGO Lipscomb .
--- NOTE | 2019-06-08 18:30 | NUR ---
Patient in room ORTHO 4006. I have received report from SANTIAGO Cisse and had the opportunity to ask questions and assume patient care.
[2019-06-08 21:14] LABS: HEMATOCRIT 28.8 % (35.0-45.0); HEMOGLOBIN 9.6 g/dl (12.0-16.0); MEAN CORPUSCULAR HEMOGLOBIN 26.7 PG (27.0-31.0); MEAN CORPUSCULAR HGB CONC 33.4 g/dL (33.0-36.5); MEAN PLATELET VOLUME 9.2 FL (7.4-10.4); PLATELET COUNT 118 X10'3 (140-440); RED CELL DISTRIBUTION WIDTH 19.9 % (11.5-14.5); WHITE BLOOD COUNT 9.7 X10'3 (4.5-11.0)
--- NOTE | 2019-06-08 23:55 | NUR ---
Problems reprioritized. Patient report given, questions answered & plan of care reviewed with SANTIAGO Abbasi.
--- NOTE | 2019-06-08 23:55 | NUR ---
Patient in room ORTHO 4006. I have received report from Deisi HENDERSON and had the opportunity to ask questions and assume patient care.
[2019-06-09] MEDS: lactulose 20gm/30ml cup PO SCH ×4 (01:53→19:36)
[2019-06-09] MEDS: pantoprazole 40MG/NS 100ML BAG 100 ML IV SCH ×5 (03:40→21:01)
[2019-06-09 06:27] LABS: ALANINE AMINOTRANSFERASE 53 U/L (12-78); ALBUMIN 2.5 G/DL (3.4-5.0); ALBUMIN/GLOBULIN RATIO 0.7 (1.1-1.5); ALKALINE PHOSPHATASE 80 IU/L (46-116); ANION GAP 7 (8-16); ASPARTATE AMINO TRANSFERASE 158 U/L (10-37); BILIRUBIN,TOTAL 2.2 MG/DL (0.1-1.0); BLOOD UREA NITROGEN 9 MG/DL (7-18); BUN/CREATININE RATIO 11.1 (6.6-38.0); CHLORIDE 106 MMOL/L (99-107); CREATININE 0.81 MG/DL (0.40-0.90); GLUCOSE 99 MG/DL (70-104); POTASSIUM 3.4 MMOL/L (3.5-5.1); SODIUM 138 MMOL/L (135-145); TOTAL CARBON DIOXIDE 24.8 MMOL/L (24-32); TOTAL PROTEIN 6.3 G/DL (6.4-8.2); eGFR 76 ML/MIN
--- NOTE | 2019-06-09 06:30 | NUR ---
Patient report given, questions answered & plan of care reviewed with Liborio HENDERSON.
[2019-06-09 06:31] LABS: BASOPHILS # (AUTO) 0.1 X10'3 (0-0.2); BASOPHILS % (AUTO) 1.2 % (0-1); EOSINOPHILS # (AUTO) 0.5 X10'3 (0-0.9); EOSINOPHILS % (AUTO) 4.9 % (0-6); HEMATOCRIT 27.5 % (35.0-45.0); HEMOGLOBIN 9.1 g/dl (12.0-16.0); LYMPHOCYTES # (AUTO) 1.6 X10'3 (1.1-4.8); LYMPHOCYTES % (AUTO) 16.7 % (21-51); MEAN CORPUSCULAR HEMOGLOBIN 26.4 PG (27.0-31.0); MEAN CORPUSCULAR HGB CONC 33.1 g/dL (33.0-36.5); MEAN CORPUSCULAR VOLUME 79.8 FL (78-98); MEAN PLATELET VOLUME 9.2 FL (7.4-10.4); MONOCYTES # (AUTO) 0.9 X10'3 (0-0.9); MONOCYTES % (AUTO) 9.7 % (2-12); NEUTROPHILS # (AUTO) 6.5 X10'3 (1.8-7.7); NEUTROPHILS % (AUTO) 67.5 % (42-75); PLATELET COUNT 117 X10'3 (140-440); RED BLOOD COUNT 3.45 X10'6 (4.20-5.60); RED CELL DISTRIBUTION WIDTH 19.7 % (11.5-14.5); WHITE BLOOD COUNT 9.6 X10'3 (4.5-11.0)
--- NOTE | 2019-06-09 06:38 | NUR ---
Patient in room ORTHO 4006. I have received report from SANTIAGO Reyes and had the opportunity to ask questions and assume patient care.
[2019-06-09] MEDS: thiamine 100mg tablet PO SCH (08:16)
[2019-06-09] MEDS: levetiracetam 250mg tablet PO SCH ×2 (08:16→19:36)
[2019-06-09] MEDS: spironolactone 50 MG tablet PO SCH (08:17)
[2019-06-09] MEDS: folic acid 0.4mg tablet PO SCH (08:17)
[2019-06-09] MEDS: lactobacillus rhamnosus 10,000 MMU CELLS/CAPSULE PO SCH ×2 (08:17→19:35)
[2019-06-09] MEDS: propranolol 10mg tablet PO SCH ×2 (08:17→19:36)
[2019-06-09] MEDS: multivitamins, therapeutics tablet PO SCH (08:17)
[2019-06-09] MEDS ORDERED: morphine 2 MG/ML inj. syringe IV PRN (09:50)
[2019-06-09 10:00] VITALS: BP 105/60
[2019-06-09] MEDS: HYDROcodone/acetaminophen 5mg/325mg tablet PO PRN ×3 (10:09→21:01)
--- NOTE | 2019-06-09 12:20 | NUR ---
PAGER ID: [phone] MESSAGE: [phone] Lissy Mederos: Do you want me to put protocol replacement orders in for her K of 3.4? SANTIAGO Capone Ext [phone]
[2019-06-09 18:00] VITALS: BP 89/45
--- NOTE | 2019-06-09 18:01 | NUR ---
Problems reprioritized. Patient report given, questions answered & plan of care reviewed with SANTIAGO Lipscomb.
--- NOTE | 2019-06-09 18:10 | NUR ---
Patient in room ORTHO 4006. I have received report from SANTIAGO Capone and had the opportunity to ask questions and assume patient care.
--- NOTE | 2019-06-09 19:07 | NUR ---
Pt. has a low BP86/51 ,per nursing protocol pt. will have 250 ml NS bolus.We will continue monitoring this pt.
[2019-06-09 19:36] VITALS: BP 99/59
[2019-06-09] MEDS ORDERED: potassium CL 10mEq/100ml bag 100 ML IV PRN (21:20)
[2019-06-09] MEDS ORDERED: potassium Cl 20 mEq SR tablet PO PRN (21:20)
[2019-06-09] MEDS: potassium Cl 20 mEq SR tablet PO PRN (21:30)
[2019-06-09] MEDS: acetaminophen 325mg tablet PO PRN (21:30)
[2019-06-09 22:00] VITALS: BP 91/54
[2019-06-10] MEDS: lactulose 20gm/30ml cup PO SCH ×4 (01:51→21:43)
[2019-06-10] MEDS: pantoprazole 40MG/NS 100ML BAG 100 ML IV SCH ×5 (01:51→20:13)
[2019-06-10] MEDS: HYDROcodone/acetaminophen 5mg/325mg tablet PO PRN ×5 (01:52→19:31)
[2019-06-10 02:17] LABS: URINE HCG NEGATIVE (NEG)
[2019-06-10 02:34] LABS: COLOR,URINE YELLOW (Yellow); GLUCOSE, URINE NEGATIVE (Neg); KETONES,URINE NEGATIVE (Neg); LEUKOCYTE ESTERASE ,URINE NEGATIVE (Neg); NITRITES, URINE NEGATIVE (Neg); OCCULT BLOOD,URINE LARGE (Neg); PH,URINE 6.5 (4.8-8.0); PROTEIN,URINE NEGATIVE (Neg)
[2019-06-10 02:36] LABS: CLARITY,URINE SLIGHTLY CLOUDY (Clear); UA COLLECTION TYPE CLN CATCH MIDSTREAM
[2019-06-10 02:47] LABS: BACTERIA,URINE FEW /HPF (Neg); WBC,URINE 0-4 /HPF (0-4)
[2019-06-10 02:48] LABS: MUCUS STRANDS FEW /LPF (Neg); SQUAMOUS EPITHELIAL CELL,UR MODERATE /LPF (FEW)
[2019-06-10 06:00] VITALS: BP 92/53
--- NOTE | 2019-06-10 06:10 | NUR ---
received report from vinicio gupta
--- NOTE | 2019-06-10 06:13 | NUR ---
Problems reprioritized. Patient report given, questions answered & plan of care reviewed with SANTIAGO So.
[2019-06-10] MEDS: propranolol 10mg tablet PO SCH ×2 (08:00→21:43)
[2019-06-10] MEDS: spironolactone 50 MG tablet PO SCH (08:00)
[2019-06-10] MEDS: ondansetron/PF 4mg/2ml inj IV PRN (08:40)
[2019-06-10] MEDS: levetiracetam 250mg tablet PO SCH ×2 (08:44→21:43)
[2019-06-10] MEDS: multivitamins, therapeutics tablet PO SCH (08:45)
[2019-06-10] MEDS: folic acid 0.4mg tablet PO SCH (08:46)
[2019-06-10] MEDS: lactobacillus rhamnosus 10,000 MMU CELLS/CAPSULE PO SCH ×2 (08:46→21:43)
[2019-06-10] MEDS: thiamine 100mg tablet PO SCH (08:48)
--- NOTE | 2019-06-10 08:50 | NUR ---
barcode on vitamin b 1 not scanning into [facility], checked med prior to admin, continue to monitor
[2019-06-10 10:00] VITALS: BP 105/67
[2019-06-10] MEDS: CefTRIAXone 2gm/D5W 50ml 50 ML IV SCH (13:19)
[2019-06-10] MEDS: acetaminophen 325mg tablet PO PRN (17:07)
[2019-06-10 18:00] VITALS: BP 107/67
--- NOTE | 2019-06-10 18:16 | NUR ---
gave report to vinicio welch
[2019-06-10 22:00] VITALS: BP 111/63
[2019-06-11] MEDS: HYDROcodone/acetaminophen 5mg/325mg tablet PO PRN ×5 (01:13→19:28)
[2019-06-11] MEDS: pantoprazole 40MG/NS 100ML BAG 100 ML IV SCH ×5 (01:22→21:00)
[2019-06-11] MEDS: lactulose 20gm/30ml cup PO SCH ×5 (02:00→23:58)
[2019-06-11 06:00] VITALS: BP 90/63
--- NOTE | 2019-06-11 06:00 | NUR ---
Report received from Sonia HENDERSON
[2019-06-11 06:23] LABS: ALBUMIN 2.3 G/DL (3.4-5.0); ANION GAP 6 (8-16); BLOOD UREA NITROGEN 7 MG/DL (7-18); BUN/CREATININE RATIO 10.1 (6.6-38.0); CALCIUM 7.4 MG/DL (8.5-10.1); CHLORIDE 103 MMOL/L (99-107); CREATININE 0.69 MG/DL (0.40-0.90); GLUCOSE 118 MG/DL (70-104); POTASSIUM 3.8 MMOL/L (3.5-5.1); SODIUM 134 MMOL/L (135-145); TOTAL CARBON DIOXIDE 24.6 MMOL/L (24-32); eGFR > 90 ML/MIN
[2019-06-11 06:27] LABS: BASOPHILS # (AUTO) 0.1 X10'3 (0-0.2); BASOPHILS % (AUTO) 0.6 % (0-1); EOSINOPHILS # (AUTO) 0.2 X10'3 (0-0.9); EOSINOPHILS % (AUTO) 1.4 % (0-6); HEMATOCRIT 24.6 % (35.0-45.0); HEMOGLOBIN 8.1 g/dl (12.0-16.0); LYMPHOCYTES # (AUTO) 0.8 X10'3 (1.1-4.8); MEAN CORPUSCULAR HEMOGLOBIN 26.4 PG (27.0-31.0); MEAN CORPUSCULAR HGB CONC 32.8 g/dL (33.0-36.5); MEAN CORPUSCULAR VOLUME 80.4 FL (78-98); MEAN PLATELET VOLUME 9.3 FL (7.4-10.4); MONOCYTES # (AUTO) 1.4 X10'3 (0-0.9); MONOCYTES % (AUTO) 8.1 % (2-12); NEUTROPHILS # (AUTO) 14.3 X10'3 (1.8-7.7); NEUTROPHILS % (AUTO) 84.9 % (42-75); PLATELET COUNT 98 X10'3 (140-440); RED BLOOD COUNT 3.06 X10'6 (4.20-5.60); RED CELL DISTRIBUTION WIDTH 20.5 % (11.5-14.5); WHITE BLOOD COUNT 16.8 X10'3 (4.5-11.0)
[2019-06-11 07:40] LABS: ANISOCYTOSIS 3+; PLATELET ESTIMATE DECREASED
[2019-06-11] MEDS: CefTRIAXone 2gm/D5W 50ml 50 ML IV SCH (08:10)
[2019-06-11] MEDS: multivitamins, therapeutics tablet PO SCH (08:10)
[2019-06-11] MEDS: spironolactone 50 MG tablet PO SCH (08:11)
[2019-06-11] MEDS: lactobacillus rhamnosus 10,000 MMU CELLS/CAPSULE PO SCH ×2 (08:11→19:13)
[2019-06-11] MEDS: levetiracetam 250mg tablet PO SCH ×2 (08:11→19:13)
[2019-06-11] MEDS: thiamine 100mg tablet PO SCH (08:11)
[2019-06-11] MEDS: propranolol 10mg tablet PO SCH ×2 (08:11→19:14)
[2019-06-11] MEDS: folic acid 0.4mg tablet PO SCH (08:11)
[2019-06-11 10:00] VITALS: BP 92/56
--- NOTE | 2019-06-11 17:06 | NUR ---
Pharmacy called to request flu vaccine
[2019-06-11] MEDS ORDERED: FLU VACC QS 2019-20 (6 MOS UP) 60 MCG/0.5 ML VIAL IMVAC ONE (17:10)
[2019-06-11 18:00] VITALS: BP 84/46
--- NOTE | 2019-06-11 18:33 | NUR ---
Student documentation: I have reviewed and agree with all interventions, assessments performed and documented by Calvin NS. Student Medication Administration: For this medication-pass time frame, all medication were reviewed, dispensed, administered and documented per hospital policy by Calvin NS. Report to Stephanie HENDERSON
--- NOTE | 2019-06-11 18:34 | NUR ---
report given to Stephanie SANTIAGO
[2019-06-11 22:00] VITALS: BP 91/46
[2019-06-12] MEDS: HYDROcodone/acetaminophen 5mg/325mg tablet PO PRN ×6 (00:03→23:39)
[2019-06-12] MEDS: pantoprazole 40MG/NS 100ML BAG 100 ML IV SCH ×3 (04:39→09:02)
[2019-06-12 06:00] VITALS: BP 96/52
--- NOTE | 2019-06-12 08:41 | NUR ---
PAGER ID: [phone] MESSAGE: [phone] Rosa M Margaret Do you want a Lactic acid on her? And her Ammonia went up to 72 Nancy [phone]
[2019-06-12] MEDS: potassium Cl 20 mEq SR tablet PO PRN ×2 (08:49→19:44)
[2019-06-12] MEDS: spironolactone 50 MG tablet PO SCH (08:49)
[2019-06-12] MEDS: CefTRIAXone 2gm/D5W 50ml 50 ML IV SCH (08:49)
[2019-06-12] MEDS: levetiracetam 250mg tablet PO SCH ×2 (08:49→19:44)
[2019-06-12] MEDS: thiamine 100mg tablet PO SCH (08:50)
[2019-06-12] MEDS: lactobacillus rhamnosus 10,000 MMU CELLS/CAPSULE PO SCH ×2 (08:50→19:43)
[2019-06-12] MEDS: lactulose 20gm/30ml cup PO SCH ×2 (08:50→16:00)
[2019-06-12] MEDS: propranolol 10mg tablet PO SCH ×2 (08:50→20:00)
[2019-06-12] MEDS: folic acid 0.4mg tablet PO SCH (08:50)
[2019-06-12] MEDS: multivitamins, therapeutics tablet PO SCH (08:50)
[2019-06-12 10:00] VITALS: BP 96/48
[2019-06-12 10:05] LABS: BASOPHILS # (AUTO) 0.1 X10'3 (0-0.2); BASOPHILS % (AUTO) 0.8 % (0-1); EOSINOPHILS # (AUTO) 0.7 X10'3 (0-0.9); EOSINOPHILS % (AUTO) 6.9 % (0-6); HEMATOCRIT 23.4 % (35.0-45.0); HEMOGLOBIN 7.7 g/dl (12.0-16.0); LYMPHOCYTES # (AUTO) 1.3 X10'3 (1.1-4.8); LYMPHOCYTES % (AUTO) 13.2 % (21-51); MEAN CORPUSCULAR HEMOGLOBIN 26.8 PG (27.0-31.0); MEAN CORPUSCULAR VOLUME 81.2 FL (78-98); MEAN PLATELET VOLUME 9.5 FL (7.4-10.4); MONOCYTES # (AUTO) 1.5 X10'3 (0-0.9); MONOCYTES % (AUTO) 14.4 % (2-12); NEUTROPHILS # (AUTO) 6.6 X10'3 (1.8-7.7); NEUTROPHILS % (AUTO) 64.7 % (42-75); PLATELET COUNT 112 X10'3 (140-440); RED BLOOD COUNT 2.88 X10'6 (4.20-5.60); WHITE BLOOD COUNT 10.2 X10'3 (4.5-11.0)
[2019-06-12 10:19] LABS: ALBUMIN 2.2 G/DL (3.4-5.0); ANION GAP 5 (8-16); BLOOD UREA NITROGEN 7 MG/DL (7-18); BUN/CREATININE RATIO 11.5 (6.6-38.0); CALCIUM 7.3 MG/DL (8.5-10.1); CHLORIDE 104 MMOL/L (99-107); CREATININE 0.61 MG/DL (0.40-0.90); GLUCOSE 112 MG/DL (70-104); POTASSIUM 3.5 MMOL/L (3.5-5.1); SODIUM 135 MMOL/L (135-145); TOTAL CARBON DIOXIDE 26.4 MMOL/L (24-32); eGFR > 90 ML/MIN
[2019-06-12 10:39] LABS: PLATELET ESTIMATE DECREASED
[2019-06-12 10:40] LABS: ANISOCYTOSIS 3+; LARGE PLATELETS FEW
[2019-06-12] MEDS: pantoprazole 40mg Tablet.DR PO SCH ×2 (12:57→23:40)
--- NOTE | 2019-06-12 13:53 | NUR ---
Initial: Pt admit w/ UGIB found to have esophageal varices in addition to DX hepatic encephalopathy and bacteremia possibly sepsis per MD note. Pt PO 50-75% avg meals fluctuates up to 100% meeting needs given wt. LBM 06/11 receiving lactulose. AOx3 today. Will continue to monitor for additional protein needs if PO declines. Rec: 1. continue mechanical soft diet per MD/SP 2. monitor for additional protein needs if PO declines 3. wt per rx Addendum: 06/12/19 at [address] Amended: Links added.
[2019-06-12 18:00] VITALS: BP 90/49
--- NOTE | 2019-06-12 18:35 | NUR ---
Problems reprioritized. Patient report given, questions answered & plan of care reviewed with Stephanie HENDERSON.
[2019-06-12 22:16] VITALS: BP 99/52
[2019-06-13 04:44] LABS: BASOPHILS % (AUTO) 0.5 % (0-1); EOSINOPHILS # (AUTO) 0.6 X10'3 (0-0.9); EOSINOPHILS % (AUTO) 5.8 % (0-6); HEMATOCRIT 23.1 % (35.0-45.0); HEMOGLOBIN 7.7 g/dl (12.0-16.0); LYMPHOCYTES # (AUTO) 1.9 X10'3 (1.1-4.8); LYMPHOCYTES % (AUTO) 19.1 % (21-51); MEAN CORPUSCULAR HEMOGLOBIN 26.7 PG (27.0-31.0); MEAN CORPUSCULAR HGB CONC 33.2 g/dL (33.0-36.5); MEAN CORPUSCULAR VOLUME 80.4 FL (78-98); MEAN PLATELET VOLUME 9.5 FL (7.4-10.4); MONOCYTES # (AUTO) 1.8 X10'3 (0-0.9); MONOCYTES % (AUTO) 17.8 % (2-12); NEUTROPHILS # (AUTO) 5.6 X10'3 (1.8-7.7); NEUTROPHILS % (AUTO) 56.8 % (42-75); PLATELET COUNT 130 X10'3 (140-440); RED BLOOD COUNT 2.87 X10'6 (4.20-5.60); RED CELL DISTRIBUTION WIDTH 20.9 % (11.5-14.5); WHITE BLOOD COUNT 9.9 X10'3 (4.5-11.0)
[2019-06-13 04:55] LABS: ALBUMIN 2.2 G/DL (3.4-5.0); ANION GAP 9 (8-16); BLOOD UREA NITROGEN 7 MG/DL (7-18); BUN/CREATININE RATIO 12.3 (6.6-38.0); CALCIUM 7.8 MG/DL (8.5-10.1); CHLORIDE 105 MMOL/L (99-107); CREATININE 0.57 MG/DL (0.40-0.90); GLUCOSE 104 MG/DL (70-104); POTASSIUM 4.4 MMOL/L (3.5-5.1); SODIUM 137 MMOL/L (135-145); TOTAL CARBON DIOXIDE 23.4 MMOL/L (24-32); eGFR > 90 ML/MIN
[2019-06-13] MEDS: HYDROcodone/acetaminophen 5mg/325mg tablet PO PRN ×2 (05:10→09:11)
[2019-06-13 05:58] LABS: TOTAL CELLS COUNTED 100
[2019-06-13 05:59] LABS: ANISOCYTOSIS 3+; HYPOCHROMASIA 1+; PLATELET ESTIMATE DECREASED; POLYCHROMASIA FEW
[2019-06-13 06:00] VITALS: BP 108/70
[2019-06-13] MEDS: levetiracetam 250mg tablet PO SCH (09:10)
[2019-06-13] MEDS: lactulose 20gm/30ml cup PO SCH ×2 (09:10)
[2019-06-13] MEDS: pantoprazole 40mg Tablet.DR PO SCH (09:10)
[2019-06-13] MEDS: CefTRIAXone 2gm/D5W 50ml 50 ML IV SCH (09:10)
[2019-06-13] MEDS: lactobacillus rhamnosus 10,000 MMU CELLS/CAPSULE PO SCH (09:11)
[2019-06-13] MEDS: multivitamins, therapeutics tablet PO SCH (09:11)
[2019-06-13] MEDS: folic acid 0.4mg tablet PO SCH (09:11)
[2019-06-13] MEDS: spironolactone 50 MG tablet PO SCH (09:15)
[2019-06-13] MEDS: thiamine 100mg tablet PO SCH (09:15)
[2019-06-13] MEDS: propranolol 10mg tablet PO SCH (09:16)
[2019-06-13 10:00] VITALS: BP 98/62
[2019-06-13] MEDS ORDERED: LEVO500T89 PO (11:31)
[2019-06-13] MEDS ORDERED: PANT-47 PO (11:31)
[2019-06-13] MEDS ORDERED: LACT10SO7 PO (15:50)
== END 2019-06-13 13:15 | disposition home or self-care (01) | DRG 242 ==
LOC: ER 10:15 → ED HOLD 17:28 → ORTHO 4S 19:20
PROVIDERS: ADMIT Internal Medicine; ATTEND Family Medicine
PROC: 0DJ08ZZ Inspection of Upper Intestinal Tract, Via Natural or Artificial Opening Endoscopic (ICD-10-PCS; principal; 2019-06-07)
PROC: 30233N1 Transfusion of Nonautologous Red Blood Cells into Peripheral Vein, Percutaneous Approach (ICD-10-PCS; 2019-06-08)
PROC: 3E02340 Introduction of Influenza Vaccine into Muscle, Percutaneous Approach (ICD-10-PCS; 2019-06-11)
DX: K22.11 Ulcer of esophagus with bleeding (principal); I85.11 Secondary esophageal varices with bleeding; K76.6 Portal hypertension; K86.1 Other chronic pancreatitis; D62 Acute posthemorrhagic anemia; K70.30 Alcoholic cirrhosis of liver without ascites; K72.90 Hepatic failure, unspecified without coma; B95.4 Other streptococcus as the cause of diseases classified elsewhere; G40.909 Epilepsy, unspecified, not intractable, without status epilepticus; K31.89 Other diseases of stomach and duodenum; M79.7 Fibromyalgia; F17.210 Nicotine dependence, cigarettes, uncomplicated; F12.90 Cannabis use, unspecified, uncomplicated; F41.9 Anxiety disorder, unspecified; K76.9 Liver disease, unspecified; M79.604 Pain in right leg; M79.605 Pain in left leg; Z23 Encounter for immunization; Z88.1 Allergy status to other antibiotic agents; Z81.1 Family history of alcohol abuse and dependence; Z82.3 Family history of stroke; Z79.899 Other long term (current) drug therapy
CPT/HCPCS: 36415; 43235; 71045; 80048; 80053; 80320; 81001; 81025; 82140; 82948; 83605; 83690; 84132; 85025; 85027; 85610; 86885; 86900; 86901; 86920; 87040; 87077; 87081; 87186; 96365; 96366; 96368; 96375; 97110; 97161; 97530; 99152; 99285; A4620; C9113; G0378; J0696; J2250; J2270; J2354; J2405; J3010; J7050; P9016; Q2037

== ENCOUNTER 2019-12-10 14:11 | Emergency (ER) | payer MEDICAID ==
[~2019-12-10] VITALS: Ht 162.6 cm; Wt 62.0 kg
[~2019-12-10 14:11] MED LIST changes: +FOLI0.4T14 PO; -FOLI1TAB16 PO; -LACT10SO PO; +LACT10SO7 PO; +SPIR50TA5 PO
[2019-12-10 14:41] LABS: BASOPHILS # (AUTO) 0.1 X10'3 (0-0.2); EOSINOPHILS # (AUTO) 0.4 X10'3 (0-0.9); HEMOGLOBIN 8.9 g/dl (12.0-16.0); MEAN PLATELET VOLUME 8.4 FL (7.4-10.4); WHITE BLOOD COUNT 6.6 X10'3 (4.5-11.0)
[2019-12-10 14:42] LABS: EOSINOPHILS % (AUTO) 6.3 % (0-6); HEMATOCRIT 28.9 % (35.0-45.0); LYMPHOCYTES # (AUTO) 1.4 X10'3 (1.1-4.8); LYMPHOCYTES % (AUTO) 20.9 % (21-51); MEAN CORPUSCULAR HEMOGLOBIN 20.8 PG (27.0-31.0); MEAN CORPUSCULAR HGB CONC 30.8 g/dL (33.0-36.5); MEAN CORPUSCULAR VOLUME 67.3 FL (78-98); MONOCYTES # (AUTO) 0.9 X10'3 (0-0.9); MONOCYTES % (AUTO) 13.5 % (2-12); NEUTROPHILS # (AUTO) 3.7 X10'3 (1.8-7.7); NEUTROPHILS % (AUTO) 57.3 % (42-75); PLATELET COUNT 104 X10'3 (140-440); RED BLOOD COUNT 4.29 X10'6 (4.20-5.60); RED CELL DISTRIBUTION WIDTH 22.7 % (11.5-14.5)
[2019-12-10 14:56] LABS: ALANINE AMINOTRANSFERASE 22 U/L (12-78); ALBUMIN/GLOBULIN RATIO 0.7 (1.1-1.5); ALKALINE PHOSPHATASE 157 IU/L (46-116); AMYLASE 37 U/L (25-115); ANION GAP 10 (8-16); ASPARTATE AMINO TRANSFERASE 36 U/L (10-37); BILIRUBIN,TOTAL 1.4 MG/DL (0.1-1.0); BLOOD UREA NITROGEN 9 MG/DL (7-18); BUN/CREATININE RATIO 13.8 (6.6-38.0); CALCIUM 8.7 MG/DL (8.5-10.1); CHLORIDE 108 MMOL/L (99-107); CREATININE 0.65 MG/DL (0.40-0.90); GLUCOSE 98 MG/DL (70-104); LIPASE 216 U/L (73-393); POTASSIUM 3.8 MMOL/L (3.5-5.1); SODIUM 140 MMOL/L (135-145); TOTAL CARBON DIOXIDE 22.5 MMOL/L (24-32); TOTAL PROTEIN 7.5 G/DL (6.4-8.2); eGFR > 90 ML/MIN
[2019-12-10 15:09] LABS: ANISOCYTOSIS 3+; HYPOCHROMASIA 1+; MICROCYTOSIS 2+; PLATELET ESTIMATE DECREASED; POIKILOCYTOSIS 1+; POLYCHROMASIA 1+
[2019-12-10 15:10] LABS: ELLIPTOCYTES 1+; SCHISTOCYTES FEW; TARGET CELLS FEW
[2019-12-10 15:42] VITALS: BP 125/79
[2019-12-10] MEDS ORDERED: MILK175T2 PO (15:47)
[2019-12-10] MEDS ORDERED: LEVE10002 PO (16:09)
[2019-12-10] MEDS ORDERED: KEP500T PO (16:09)
[2019-12-10] MEDS ORDERED: FURO-149 PO (16:09)
== END 2019-12-10 16:20 | disposition home or self-care (01) ==
LOC: ER 14:11
DX: K70.31 Alcoholic cirrhosis of liver with ascites (principal); F41.9 Anxiety disorder, unspecified; F12.90 Cannabis use, unspecified, uncomplicated; F15.90 Other stimulant use, unspecified, uncomplicated; Z56.0 Unemployment, unspecified; Z72.89 Other problems related to lifestyle; Z86.69 Personal history of other diseases of the nervous system and sense organs; Z79.2 Long term (current) use of antibiotics; Z79.899 Other long term (current) drug therapy
CPT/HCPCS: 36415; 80053; 82150; 83690; 85025; 85610; 99283

== ENCOUNTER 2019-12-12 11:07 | Inpatient (IN) | payer MEDICAID ==
[~2019-12-12] VITALS: Ht 162.6 cm; Wt 60.4 kg
[~2019-12-12 11:07] MED LIST changes: +FURO-149 PO; +KEP500T PO; +LEVE10002 PO; +MILK175T2 PO; -MULT-933 PO; -PROP10TA10 PO
[2019-12-12 11:48] LABS: HEMOGLOBIN 9.5 g/dl (12.0-16.0)
[2019-12-12 11:48] LABS: CLARITY,URINE CLOUDY (Clear); COLOR,URINE YELLOW (Yellow); GLUCOSE, URINE NEGATIVE (Neg); KETONES,URINE NEGATIVE (Neg); LEUKOCYTE ESTERASE ,URINE NEGATIVE (Neg); NITRITES, URINE NEGATIVE (Neg); OCCULT BLOOD,URINE LARGE (Neg); PROTEIN,URINE NEGATIVE (Neg); UROBILINOGEN,URINE 0.2 E.U/dL (0.2-1.0)
[2019-12-12 11:50] LABS: HEMATOCRIT 30.7 % (35.0-45.0); MEAN CORPUSCULAR HEMOGLOBIN 20.9 PG (27.0-31.0); MEAN CORPUSCULAR HGB CONC 30.9 g/dL (33.0-36.5); MEAN CORPUSCULAR VOLUME 67.7 FL (78-98); MEAN PLATELET VOLUME 8.8 FL (7.4-10.4); PLATELET COUNT 119 X10'3 (140-440); RED BLOOD COUNT 4.54 X10'6 (4.20-5.60); RED CELL DISTRIBUTION WIDTH 23.3 % (11.5-14.5); WHITE BLOOD COUNT 9.3 X10'3 (4.5-11.0)
[2019-12-12 11:53] LABS: UA COLLECTION TYPE CLN CATCH MIDSTREAM
[2019-12-12 11:54] LABS: MUCUS STRANDS FEW /LPF (Neg); SQUAMOUS EPITHELIAL CELL,UR MANY /LPF (FEW)
[2019-12-12 11:55] LABS: BACTERIA,URINE FEW /HPF (Neg); WBC,URINE 0-4 /HPF (0-4)
[2019-12-12 12:00] LABS: URINE HCG NEGATIVE (NEG)
[2019-12-12 12:02] LABS: ALANINE AMINOTRANSFERASE 21 U/L (12-78); ALBUMIN/GLOBULIN RATIO 0.6 (1.1-1.5); ALKALINE PHOSPHATASE 160 IU/L (46-116); ANION GAP 11 (8-16); BILIRUBIN,TOTAL 1.3 MG/DL (0.1-1.0); BLOOD UREA NITROGEN 4 MG/DL (7-18); BUN/CREATININE RATIO 6.5 (6.6-38.0); CALCIUM 8.3 MG/DL (8.5-10.1); CHLORIDE 105 MMOL/L (99-107); CREATININE 0.62 MG/DL (0.40-0.90); GLUCOSE 110 MG/DL (70-104); LIPASE 172 U/L (73-393); SODIUM 140 MMOL/L (135-145); TOTAL CARBON DIOXIDE 24.1 MMOL/L (24-32); TOTAL PROTEIN 8.1 G/DL (6.4-8.2); eGFR > 90 ML/MIN
[2019-12-12 12:04] LABS: ASPARTATE AMINO TRANSFERASE 59 U/L (10-37); POTASSIUM 4.6 MMOL/L (3.5-5.1)
[2019-12-12 12:37] LABS: ANISOCYTOSIS 3+; HYPOCHROMASIA 2+; LARGE PLATELETS FEW; MICROCYTOSIS 2+; PLATELET ESTIMATE DECREASED; POIKILOCYTOSIS FEW; TOTAL CELLS COUNTED 100
[2019-12-12 12:39] LABS: ELLIPTOCYTES FEW; GIANT PLATELET FEW; POLYCHROMASIA 1+; TARGET CELLS FEW
[2019-12-12] MEDS ORDERED: DOCU-21 PO (14:28)
[2019-12-12] MEDS ORDERED: SPIR50TA PO (14:30)
[2019-12-12 14:35] LABS: URINE AMPHETAMINE SCREEN NEGATIVE (Neg); URINE BARBITUATE SCREEN NEGATIVE (Neg); URINE BENZODIAZEPINES SCREEN NEGATIVE (Neg); URINE CANNABINOID SCREEN NEGATIVE (Neg); URINE COCAINE SCREEN NEGATIVE (Neg); URINE METHADONE SCREEN NEGATIVE (Neg); URINE OPIATE SCREEN NEGATIVE (Neg); URINE PHENCYCLIDINE SCREEN NEGATIVE (Neg)
[2019-12-12] MEDS ORDERED: LACT10SO PO (15:39)
[2019-12-12] MEDS ORDERED: PANT40TA4 PO (15:41)
[2019-12-12] MEDS ORDERED: FURO40TA4 PO (15:41)
[2019-12-12] MEDS ORDERED: HYDROmorphone inj. 0.5 MG/0.5 ML DISP.SYRIN IV PRN (16:00)
[2019-12-12] MEDS ORDERED: potassium CL 10mEq/100ml bag 100 ML IV PRN ×2 (16:00)
[2019-12-12] MEDS ORDERED: magnesium Cl slow-release 64mg tablet PO PRN (16:00)
[2019-12-12] MEDS ORDERED: magnesium 4gm in 100ml NS 100 ML IV PRN (16:00)
[2019-12-12] MEDS ORDERED: HYDROcodone/acetaminophen 5mg/325mg tablet PO PRN (16:00)
[2019-12-12] MEDS ORDERED: magnesium hydroxide 30ml (MOM) UD suspension PO PRN (16:00)
[2019-12-12] MEDS ORDERED: magnesium 2GM in 50ml NS 50 ML IV PRN (16:00)
[2019-12-12] MEDS ORDERED: bisacodyl 10mg suppository rectal RC PRN (16:00)
[2019-12-12] MEDS ORDERED: mag hydrox/Alum hydrox/simeth 30ml oral suspension PO PRN (16:00)
[2019-12-12] MEDS ORDERED: acetaminophen 325mg tablet PO PRN (16:00)
[2019-12-12] MEDS ORDERED: potassium Cl 20 mEq SR tablet PO PRN (16:00)
[2019-12-12 16:53] LABS: PARTIAL THROMBOPLASTIN TIME 29 SECONDS (22-32)
[2019-12-12] MEDS: sodium chloride 0.45% 1,000 ML IV SCH (17:40)
[2019-12-12] MEDS: CefTRIAXone/D5W-Rocephin 1gm 50 ML IV SCH (17:41)
[2019-12-12] MEDS: HYDROcodone/acetaminophen 10/325mg tab PO PRN (17:52)
--- NOTE | 2019-12-12 17:53 | NUR ---
Pt medicated as ordered for pain with PO [place] 10/325mg. Pt's IV fluid and antibiotic is infusing without difficulty. Pt is aware of the delay for room assignment and is awaiting admission bed assignment.
[2019-12-12 19:50] VITALS: BP 126/72
--- NOTE | 2019-12-12 19:50 | NUR ---
PATIENT ADMITTED TO ROOM 4010A FROM ER FOR RIGHT SIDE ABDOMINAL PAIN AND CIRRHOSIS OF THE LIVER. PLACED COMFORTABLE IN BED. VITAL SIGNS TAKEN AND RECORDED.
[2019-12-12] MEDS ORDERED: temazepam 15mg capsule PO PRN (21:00)
[2019-12-12] MEDS: levetiracetam 250mg tablet PO SCH (21:04)
[2019-12-12] MEDS: heparin, porcine 5000 units/ml vial SQ SCH (21:05)
[2019-12-12] MEDS: HYDROmorphone 1 mg/ml syringe IV PRN (21:05)
[2019-12-12] MEDS: diatr meglu/diatrizoate 30ml oral sol.-(3 dose) bottle PO SCH (21:30)
[2019-12-12] MEDS: K and/or MAG REPLACEMENT MC SCH (21:43)
[2019-12-12 23:00] VITALS: BP 120/72
[2019-12-13] MEDS: ondansetron/PF 4mg/2ml inj IV PRN ×2 (00:34→23:48)
[2019-12-13] MEDS: HYDROcodone/acetaminophen 10/325mg tab PO PRN ×4 (02:54→19:52)
[2019-12-13 05:42] LABS: BASOPHILS # (AUTO) 0.1 X10'3 (0-0.2); EOSINOPHILS # (AUTO) 0.6 X10'3 (0-0.9); EOSINOPHILS % (AUTO) 8.4 % (0-6); HEMATOCRIT 25.3 % (35.0-45.0); HEMOGLOBIN 7.8 g/dl (12.0-16.0); MONOCYTES # (AUTO) 0.7 X10'3 (0-0.9); RED CELL DISTRIBUTION WIDTH 23.1 % (11.5-14.5)
[2019-12-13 05:43] LABS: BASOPHILS % (AUTO) 1.7 % (0-1); LYMPHOCYTES # (AUTO) 1.6 X10'3 (1.1-4.8); LYMPHOCYTES % (AUTO) 21.4 % (21-51); MEAN CORPUSCULAR HEMOGLOBIN 20.9 PG (27.0-31.0); MEAN CORPUSCULAR VOLUME 67.5 FL (78-98); MONOCYTES % (AUTO) 9.2 % (2-12); NEUTROPHILS # (AUTO) 4.4 X10'3 (1.8-7.7); NEUTROPHILS % (AUTO) 59.3 % (42-75); PLATELET COUNT 106 X10'3 (140-440); RED BLOOD COUNT 3.75 X10'6 (4.20-5.60); WHITE BLOOD COUNT 7.4 X10'3 (4.5-11.0)
[2019-12-13 06:00] VITALS: BP 105/57
[2019-12-13 06:01] LABS: ALANINE AMINOTRANSFERASE 17 U/L (12-78); ALBUMIN 2.5 G/DL (3.4-5.0); ALBUMIN/GLOBULIN RATIO 0.6 (1.1-1.5); ALKALINE PHOSPHATASE 117 IU/L (46-116); ANION GAP 8 (8-16); ASPARTATE AMINO TRANSFERASE 30 U/L (10-37); BILIRUBIN,TOTAL 1.1 MG/DL (0.1-1.0); BLOOD UREA NITROGEN 7 MG/DL (7-18); BUN/CREATININE RATIO 13.2 (6.6-38.0); CALCIUM 8.3 MG/DL (8.5-10.1); CHLORIDE 108 MMOL/L (99-107); CREATININE 0.53 MG/DL (0.40-0.90); GLUCOSE 104 MG/DL (70-104); MAGNESIUM 1.7 MG/DL (1.5-2.4); POTASSIUM 3.2 MMOL/L (3.5-5.1); SODIUM 140 MMOL/L (135-145); TOTAL CARBON DIOXIDE 24.4 MMOL/L (24-32); TOTAL PROTEIN 6.4 G/DL (6.4-8.2); eGFR > 90 ML/MIN
--- NOTE | 2019-12-13 06:09 | NUR ---
received report from vinicio dodge
--- NOTE | 2019-12-13 06:15 | NUR ---
Problems reprioritized. Patient report given, questions answered & plan of care reviewed with CASSIDY HENDERSON.
[2019-12-13] MEDS: sodium chloride 0.45% 1,000 ML IV SCH ×2 (07:22→19:59)
[2019-12-13] MEDS: potassium Cl 20 mEq SR tablet PO PRN ×3 (07:23→19:52)
[2019-12-13] MEDS: levetiracetam 250mg tablet PO SCH ×2 (07:24→19:51)
[2019-12-13] MEDS: diatr meglu/diatrizoate 30ml oral sol.-(3 dose) bottle PO SCH ×2 (07:25→09:39)
[2019-12-13] MEDS: CefTRIAXone/D5W-Rocephin 1gm 50 ML IV SCH (07:29)
[2019-12-13 07:32] LABS: ANISOCYTOSIS 3+; HYPOCHROMASIA 2+; MICROCYTOSIS 2+; PLATELET ESTIMATE DECREASED
[2019-12-13 07:33] LABS: POLYCHROMASIA FEW
[2019-12-13] MEDS: K and/or MAG REPLACEMENT MC SCH ×2 (08:00→19:18)
[2019-12-13] MEDS ORDERED: iohexol 300mg/ml 100ml inj. ONE (09:17)
[2019-12-13] MEDS: metoclopramide 5 mg/ml inj IV PRN ×2 (09:36→16:09)
[2019-12-13] MEDS: HYDROmorphone 1 mg/ml syringe IV PRN ×3 (09:41→23:49)
[2019-12-13 10:00] VITALS: BP 95/55
[2019-12-13] MEDS: diphenhydrAMINE 25mg capsule PO PRN ×2 (10:19→21:59)
[2019-12-13] MEDS: heparin, porcine 5000 units/ml vial SQ SCH ×2 (10:21→19:53)
--- NOTE | 2019-12-13 10:31 | NUR ---
hospitalist okayed heparin for pt, continue to monitor
--- NOTE | 2019-12-13 13:06 | NUR ---
SCANNER ON COMPUTER NOT WORKING TO SCAN MEDS INTO [employer], CHECKED MEDS PRIOR TO ADMIN, CONTINUE TO MONITOR
[2019-12-13 17:00] VITALS: BP 107/66
--- NOTE | 2019-12-13 18:05 | NUR ---
gave report to prudence, rn
--- NOTE | 2019-12-13 18:58 | NUR ---
Patient in room ORTHO 4010. I have received report from Saray HENDERSON and had the opportunity to ask questions and assume patient care.
[2019-12-13] MEDS: lactobacillus rhamnosus 10,000 MMU CELLS/CAPSULE PO SCH (19:51)
[2019-12-13 22:00] VITALS: BP 95/57
[2019-12-14] MEDS: HYDROcodone/acetaminophen 10/325mg tab PO PRN (04:03)
[2019-12-14 05:58] LABS: BASOPHILS # (AUTO) 0.1 X10'3 (0-0.2); BASOPHILS % (AUTO) 1.5 % (0-1); EOSINOPHILS # (AUTO) 0.6 X10'3 (0-0.9); EOSINOPHILS % (AUTO) 8.7 % (0-6); HEMATOCRIT 25.3 % (35.0-45.0); HEMOGLOBIN 7.7 g/dl (12.0-16.0); LYMPHOCYTES # (AUTO) 1.4 X10'3 (1.1-4.8); LYMPHOCYTES % (AUTO) 21.1 % (21-51); MEAN CORPUSCULAR HEMOGLOBIN 20.9 PG (27.0-31.0); MEAN CORPUSCULAR HGB CONC 30.3 g/dL (33.0-36.5); MEAN CORPUSCULAR VOLUME 68.9 FL (78-98); MEAN PLATELET VOLUME 8.9 FL (7.4-10.4); MONOCYTES # (AUTO) 0.7 X10'3 (0-0.9); MONOCYTES % (AUTO) 10.3 % (2-12); NEUTROPHILS # (AUTO) 3.9 X10'3 (1.8-7.7); NEUTROPHILS % (AUTO) 58.4 % (42-75); PLATELET COUNT 101 X10'3 (140-440); RED BLOOD COUNT 3.67 X10'6 (4.20-5.60); RED CELL DISTRIBUTION WIDTH 23.3 % (11.5-14.5); WHITE BLOOD COUNT 6.7 X10'3 (4.5-11.0)
[2019-12-14 06:00] VITALS: BP 97/59
[2019-12-14 06:17] LABS: ALANINE AMINOTRANSFERASE 19 U/L (12-78); ALBUMIN 2.5 G/DL (3.4-5.0); ALBUMIN/GLOBULIN RATIO 0.6 (1.1-1.5); ALKALINE PHOSPHATASE 118 IU/L (46-116); ANION GAP 7 (8-16); ASPARTATE AMINO TRANSFERASE 31 U/L (10-37); BILIRUBIN,TOTAL 0.9 MG/DL (0.1-1.0); BLOOD UREA NITROGEN 11 MG/DL (7-18); BUN/CREATININE RATIO 17.2 (6.6-38.0); CHLORIDE 107 MMOL/L (99-107); CREATININE 0.64 MG/DL (0.40-0.90); GLUCOSE 94 MG/DL (70-104); MAGNESIUM 1.7 MG/DL (1.5-2.4); POTASSIUM 4.4 MMOL/L (3.5-5.1); SODIUM 138 MMOL/L (135-145); TOTAL CARBON DIOXIDE 24.4 MMOL/L (24-32); TOTAL PROTEIN 6.6 G/DL (6.4-8.2); eGFR > 90 ML/MIN
--- NOTE | 2019-12-14 06:31 | NUR ---
Problems reprioritized. Patient report given, questions answered & plan of care reviewed with WICHO HENDERSON.
[2019-12-14 06:46] LABS: ANISOCYTOSIS 3+; ELLIPTOCYTES 1+; HYPOCHROMASIA 2+; MICROCYTOSIS 2+; PLATELET ESTIMATE DECREASED; POLYCHROMASIA FEW
[2019-12-14] MEDS: heparin, porcine 5000 units/ml vial SQ SCH (07:40)
[2019-12-14] MEDS: K and/or MAG REPLACEMENT MC SCH (07:40)
[2019-12-14] MEDS: lactobacillus rhamnosus 10,000 MMU CELLS/CAPSULE PO SCH (07:46)
[2019-12-14] MEDS: levetiracetam 250mg tablet PO SCH (07:46)
[2019-12-14] MEDS: CefTRIAXone/D5W-Rocephin 1gm 50 ML IV SCH (07:47)
[2019-12-14] MEDS: HYDROmorphone 1 mg/ml syringe IV PRN (07:54)
[2019-12-14] MEDS: sodium chloride 0.45% 1,000 ML IV SCH (09:52)
[2019-12-14] MEDS: diphenhydrAMINE 25mg capsule PO PRN (09:59)
[2019-12-14 10:00] VITALS: BP 112/57
--- NOTE | 2019-12-14 10:45 | NUR ---
PAGER ID: [phone] MESSAGE: [id number] Rosa M Ojeda states there is not enough fluid to drain for the paracentesis. Riri [phone]
--- NOTE | 2019-12-14 10:51 | NUR ---
PATIENT SCANNED WITH ULTRASOUND NOT ENOUGH FLUID TO DRAIN PER JORGE AMBRIZ NURSE INFORMED
--- NOTE | 2019-12-14 12:04 | NUR ---
Patient stable for discharge, PIV removed, cannula intact. Medications and belongings gathered and sent home with patient.
== END 2019-12-14 11:59 | disposition home or self-care (01) | DRG 280 ==
LOC: ER 11:08 → ED HOLD 16:07 → ORTHO 4S 19:44 → OBSVTOIN 12-13 08:55
PROVIDERS: ADMIT Family Medicine; ATTEND Family Medicine
PROC: BW211ZZ Computerized Tomography (CT Scan) of Abdomen and Pelvis using Low Osmolar Contrast (ICD-10-PCS; principal; 2019-12-13)
DX: K70.31 Alcoholic cirrhosis of liver with ascites (principal); K72.90 Hepatic failure, unspecified without coma; D50.9 Iron deficiency anemia, unspecified; F10.20 Alcohol dependence, uncomplicated; F12.90 Cannabis use, unspecified, uncomplicated; E87.6 Hypokalemia; F17.210 Nicotine dependence, cigarettes, uncomplicated; N93.9 Abnormal uterine and vaginal bleeding, unspecified; F41.9 Anxiety disorder, unspecified; Z88.1 Allergy status to other antibiotic agents; Z82.3 Family history of stroke; Z81.1 Family history of alcohol abuse and dependence; Z84.89 Family history of other specified conditions
CPT/HCPCS: 36415; 74176; 74177; 76705; 80053; 80305; 80320; 81001; 81025; 82140; 83605; 83690; 83735; 85025; 85610; 85730; 87040; 87081; 97116; 97161; 99285; G0378; J0696; J1170; J1644; J2405; J2765; Q0163; Q9963; Q9967

== ENCOUNTER 2020-03-07 13:33 | Inpatient (IN) | payer MEDICAID ==
[2020-03-07] VITALS (7 sets, daily range): BP systolic 92–110; BP diastolic 52–74
[~2020-03-07] VITALS: Ht 165.1 cm; Wt 68.2 kg
[~2020-03-07 13:33] MED LIST changes: -FURO-149 PO; -KEP500T PO; +LACT10SO PO; -LACT10SO7 PO; -LACTC PO; -LEVE10002 PO; -MILK175T2 PO; -PANT-47 PO; +PANT40TA4 PO; +SPIR50TA PO; -SPIR50TA5 PO
[2020-03-07] MEDS ORDERED: pantoprazole 40MG/NS 100ML BAG 100 ML IV STA (13:53)
[2020-03-07] MEDS ORDERED: normal saline 1000ML IV soln IVB ONE (13:55)
--- NOTE | 2020-03-07 13:57 | NUR ---
JULIANO IN TO SEE PT. PT CONTINUES TO MUMBLE C/O AND YELL OUT THAT SHE WANTS HER MOM AND A "FUCKING WET WASHCLOTH" PT BECOMES AGGITATED WITH ANY QUESTIONS.
[2020-03-07 14:36] LABS: OCCULT BLOOD STOOL POSITIVE (Neg)
[2020-03-07 14:42] LABS: BASOPHILS # (AUTO) 0.2 X10'3 (0-0.2); BASOPHILS % (AUTO) 1.2 % (0-1); EOSINOPHILS # (AUTO) 0.2 X10'3 (0-0.9); EOSINOPHILS % (AUTO) 1.6 % (0-6); HEMOGLOBIN 8.1 g/dl (12.0-16.0); LYMPHOCYTES # (AUTO) 2.3 X10'3 (1.1-4.8); LYMPHOCYTES % (AUTO) 16.3 % (21-51); MEAN CORPUSCULAR HEMOGLOBIN 22.5 PG (27.0-31.0); MEAN CORPUSCULAR HGB CONC 31.3 g/dL (33.0-36.5); MEAN PLATELET VOLUME 9.4 FL (7.4-10.4); MONOCYTES # (AUTO) 1.1 X10'3 (0-0.9); MONOCYTES % (AUTO) 7.6 % (2-12); NEUTROPHILS # (AUTO) 10.2 X10'3 (1.8-7.7); NEUTROPHILS % (AUTO) 73.3 % (42-75); PLATELET COUNT 213 X10'3 (140-440); RED BLOOD COUNT 3.61 X10'6 (4.20-5.60); RED CELL DISTRIBUTION WIDTH 22.1 % (11.5-14.5)
[2020-03-07 14:50] LABS: PARTIAL THROMBOPLASTIN TIME 29 SECONDS (22-32)
[2020-03-07 14:53] LABS: ALANINE AMINOTRANSFERASE 30 U/L (12-78); ALBUMIN 2.8 G/DL (3.4-5.0); ALBUMIN/GLOBULIN RATIO 0.7 (1.1-1.5); ALKALINE PHOSPHATASE 84 IU/L (46-116); ANION GAP 11 (8-16); ASPARTATE AMINO TRANSFERASE 32 U/L (10-37); BILIRUBIN,TOTAL 1.3 MG/DL (0.1-1.0); BLOOD UREA NITROGEN 29 MG/DL (7-18); BUN/CREATININE RATIO 35.4 (6.6-38.0); CALCIUM 8.5 MG/DL (8.5-10.1); CHLORIDE 107 MMOL/L (99-107); CREATININE 0.82 MG/DL (0.40-0.90); ETHANOL < 0.010 GM/DL (0.0-0.010); GLUCOSE 110 MG/DL (70-104); LIPASE 75 U/L (73-393); POTASSIUM 3.6 MMOL/L (3.5-5.1); SODIUM 142 MMOL/L (135-145); TOTAL CARBON DIOXIDE 23.8 MMOL/L (24-32); TOTAL PROTEIN 6.6 G/DL (6.4-8.2); eGFR 75 ML/MIN
[2020-03-07] MEDS ORDERED: lactulose 20gm/30ml cup PO ONE (15:05)
[2020-03-07 15:22] LABS: ANISOCYTOSIS 3+; HYPOCHROMASIA 1+; MICROCYTOSIS 1+; PLATELET ESTIMATE NORMAL; POLYCHROMASIA FEW
--- NOTE | 2020-03-07 15:55 | NUR ---
patient to gi lab.
[2020-03-07] MEDS ORDERED: MIDAZolam 5mg/5ml vial ONE (16:39)
[2020-03-07] MEDS ORDERED: LIDOcaine Viscous 15ml cup ONE (16:39)
[2020-03-07] MEDS ORDERED: fentaNYL/PF 50MCG/1 ML 2ML syringe ONE (16:39)
[2020-03-07] MEDS ORDERED: levoFLOXACIN-Levaquin 500mg/D5 100 ML IV ONE (16:54)
[2020-03-07] MEDS ORDERED: potassium Cl 20 mEq SR tablet PO PRN (17:10)
[2020-03-07] MEDS ORDERED: magnesium 2GM in 50ml NS 50 ML IV PRN (17:10)
[2020-03-07] MEDS ORDERED: magnesium Cl slow-release 64mg tablet PO PRN (17:10)
[2020-03-07] MEDS ORDERED: magnesium 4gm in 100ml NS 100 ML IV PRN (17:10)
[2020-03-07] MEDS ORDERED: potassium CL 10mEq/100ml bag 100 ML IV PRN ×2 (17:10)
[2020-03-07] MEDS ORDERED: ondansetron/PF 4mg/2ml inj IV PRN (17:10)
[2020-03-07] MEDS ORDERED: octreotide 100mcg/1 ml ampule SQ ONE (17:25)
[2020-03-07] MEDS ORDERED: simethicone 40mg/0.6ml oral drops 30ml PO PRN (17:30)
[2020-03-07] MEDS ORDERED: LIDOcaine Viscous 15ml cup MM ONE (17:35)
--- NOTE | 2020-03-07 18:05 | NUR ---
patient back from GI lab.
[2020-03-07] MEDS: normal saline 1000ml 1,000 ML IV SCH (18:28)
--- NOTE | 2020-03-07 18:30 | NUR ---
Patient in room PCU 3010. I have received report from TETRYL BLENDER OPERATOR and had the opportunity to ask questions and assume patient care.
[2020-03-07] MEDS: OCTREOTIDE 1,250 MCG in NS 250ml IV.SOLN IV SCH (18:46)
[2020-03-07] MEDS ORDERED: octreotide inj. 500 MCG in normal saline 100ml IV soln 100 ML IV SCH (18:55)
[2020-03-07] MEDS: K and/or MAG REPLACEMENT MC SCH (20:00)
[2020-03-07] MEDS ORDERED: pantoprazole 40 MG vial IV SCH (20:00)
[2020-03-07] MEDS: lactulose 20gm/30ml cup PO SCH (20:12)
[2020-03-07] MEDS: pantoprazole 40MG/NS 100ML BAG 100 ML IV SCH (21:00)
--- NOTE | 2020-03-07 22:33 | NUR ---
JAROD OWENS promotional table spacer PAGER ID: [phone] MESSAGE: [id number] - Lissy rueda - Pt admin for GI Bleed r/t esophageal varices, banded today. Pt less altered and admit to drinking vodka last night. Requesting ativan/Etoh protocol prn. [phone] Calvin RN Discussed patient condition with Dr. Stevens - Doctor ordered to place patient on moderate and severe etoh withdrawal order set. Will continue to monitor.
[2020-03-07] MEDS ORDERED: thiamine inj. 100 MG in normal saline 100ml IV soln 100 ML IV ONE (22:35)
[2020-03-07] MEDS ORDERED: LORazepam 2 mg/ml vial IV PRN ×2 (22:35)
[2020-03-07] MEDS ORDERED: haloperidol lactate 5mg/ml inj IM PRN (22:35)
[2020-03-08] MEDS: pantoprazole 40MG/NS 100ML BAG 100 ML IV SCH ×5 (01:00→20:58)
[2020-03-08 03:00] VITALS: BP 112/68
[2020-03-08] MEDS: normal saline 1000ml 1,000 ML IV SCH ×2 (03:35→09:11)
[2020-03-08 05:17] LABS: BASOPHILS # (AUTO) 0.1 X10'3 (0-0.2); BASOPHILS % (AUTO) 0.7 % (0-1); EOSINOPHILS # (AUTO) 0.3 X10'3 (0-0.9); EOSINOPHILS % (AUTO) 2.3 % (0-6); HEMATOCRIT 23.5 % (35.0-45.0); HEMOGLOBIN 7.1 g/dl (12.0-16.0); LYMPHOCYTES # (AUTO) 1.1 X10'3 (1.1-4.8); LYMPHOCYTES % (AUTO) 8.8 % (21-51); MEAN CORPUSCULAR HEMOGLOBIN 22.2 PG (27.0-31.0); MEAN CORPUSCULAR HGB CONC 30.2 g/dL (33.0-36.5); MEAN CORPUSCULAR VOLUME 73.4 FL (78-98); MEAN PLATELET VOLUME 9.3 FL (7.4-10.4); MONOCYTES # (AUTO) 1.3 X10'3 (0-0.9); MONOCYTES % (AUTO) 9.9 % (2-12); NEUTROPHILS # (AUTO) 9.9 X10'3 (1.8-7.7); NEUTROPHILS % (AUTO) 78.3 % (42-75); PLATELET COUNT 175 X10'3 (140-440); RED BLOOD COUNT 3.19 X10'6 (4.20-5.60); WHITE BLOOD COUNT 12.7 X10'3 (4.5-11.0)
[2020-03-08 05:31] LABS: ALANINE AMINOTRANSFERASE 25 U/L (12-78); ALBUMIN 2.5 G/DL (3.4-5.0); ALBUMIN/GLOBULIN RATIO 0.7 (1.1-1.5); ALKALINE PHOSPHATASE 74 IU/L (46-116); AMYLASE 25 U/L (25-115); ANION GAP 12 (8-16); ASPARTATE AMINO TRANSFERASE 29 U/L (10-37); BILIRUBIN,TOTAL 1.1 MG/DL (0.1-1.0); BLOOD UREA NITROGEN 24 MG/DL (7-18); CALCIUM 7.4 MG/DL (8.5-10.1); CHLORIDE 114 MMOL/L (99-107); GLUCOSE 120 MG/DL (70-104); LIPASE 121 U/L (73-393); MAGNESIUM 1.7 MG/DL (1.5-2.4); PHOSPHORUS 3.2 MG/DL (2.3-4.5); POTASSIUM 3.5 MMOL/L (3.5-5.1); SODIUM 146 MMOL/L (135-145); TOTAL CARBON DIOXIDE 20.4 MMOL/L (24-32); TOTAL PROTEIN 6.2 G/DL (6.4-8.2); eGFR 77 ML/MIN
[2020-03-08 06:00] VITALS: BP 124/77
[2020-03-08 06:05] LABS: ANISOCYTOSIS 3+; HYPOCHROMASIA 1+; MICROCYTOSIS 1+; PLATELET ESTIMATE NORMAL; POLYCHROMASIA FEW
[2020-03-08 06:06] LABS: ELLIPTOCYTES FEW; LARGE PLATELETS FEW
--- NOTE | 2020-03-08 06:29 | NUR ---
Problems reprioritized. Patient report given, questions answered & plan of care reviewed with Day RN.
--- NOTE | 2020-03-08 06:45 | NUR ---
Patient in room PCU 3010. I have received report from marce Martin and had the opportunity to ask questions and assume patient care.
[2020-03-08] MEDS: lactulose 20gm/30ml cup PO SCH ×3 (07:37→20:52)
[2020-03-08] MEDS ORDERED: folic acid 1mg/0.2ml inj IV SCH (08:00)
[2020-03-08] MEDS: K and/or MAG REPLACEMENT MC SCH ×2 (08:00→19:19)
[2020-03-08] MEDS ORDERED: thiamine inj. 100 MG, MVI, adult No.4 with vit. K 10 ML in dextrose 5% water 500ml 500 ML IV SCH ×3 (08:00)
--- NOTE | 2020-03-08 10:41 | NUR ---
requested with charge nurse if possible for pt to be moved close to nursing station.Pt is confused A & O x2, impulsive and tries to get to bedside commode by herself and it is hard to monitor her or hear alarm from the other side of the floor. Charge nurse said she will try to move her closer but floor is pretty full.
[2020-03-08 11:00] VITALS: BP 122/74
[2020-03-08] MEDS ORDERED: thiamine 100mg tablet PO SCH (11:05)
[2020-03-08] MEDS ORDERED: folic acid 0.4mg tablet PO SCH (11:05)
[2020-03-08 12:45] LABS: HEMATOCRIT 23.1 % (35.0-45.0); HEMOGLOBIN 7.1 g/dl (12.0-16.0); MEAN CORPUSCULAR HEMOGLOBIN 22.6 PG (27.0-31.0); MEAN CORPUSCULAR HGB CONC 30.5 g/dL (33.0-36.5); MEAN CORPUSCULAR VOLUME 74.2 FL (78-98); MEAN PLATELET VOLUME 9.5 FL (7.4-10.4); PLATELET COUNT 153 X10'3 (140-440); RED BLOOD COUNT 3.12 X10'6 (4.20-5.60); RED CELL DISTRIBUTION WIDTH 21.8 % (11.5-14.5); WHITE BLOOD COUNT 12.5 X10'3 (4.5-11.0)
[2020-03-08] MEDS: spironolactone 50 MG tablet PO SCH (12:48)
[2020-03-08] MEDS: furosemide 40mg tablet PO SCH (12:49)
[2020-03-08] MEDS ORDERED: acetaminophen 325mg tablet PO PRN (12:55)
[2020-03-08 15:00] VITALS: BP 108/73
[2020-03-08 18:00] VITALS: BP 106/64
--- NOTE | 2020-03-08 18:37 | NUR ---
Patient in room PCU 3010. I have received report from Shayla HENDERSON and had the opportunity to ask questions and assume patient care.
--- NOTE | 2020-03-08 18:43 | NUR ---
Problems reprioritized. Patient report given, questions answered & plan of care reviewed with Analisa HENDERSON.
--- NOTE | 2020-03-08 18:55 | NUR ---
unable to finish darting pt. Pt is unable to answer questions to very history. Addendum: 03/08/20 at 1855 by Shayla Guillen RN Amended: Links added.
[2020-03-08] MEDS: CefTRIAXone/D5W-Rocephin 1gm 50 ML IV SCH (19:18)
[2020-03-08] MEDS: OCTREOTIDE 1,250 MCG in NS 250ml IV.SOLN IV SCH (19:18)
[2020-03-08] MEDS: levetiracetam 250mg tablet PO SCH (19:19)
[2020-03-08] MEDS: rifaximin 550mg tablet PO SCH (19:32)
[2020-03-08] MEDS: acetaminophen 325mg tablet PO PRN (19:33)
[2020-03-08] MEDS ORDERED: pantoprazole 40mg Tablet.DR PO SCH (20:00)
[2020-03-08] MEDS ORDERED: HYDROcodone/acetaminophen 5mg/325mg tablet PO ONE (20:25)
[2020-03-08 22:00] VITALS: BP 105/66
[2020-03-09] VITALS (8 sets, daily range): BP systolic 96–112; BP diastolic 48–64
[2020-03-09] MEDS: pantoprazole 40MG/NS 100ML BAG 100 ML IV SCH ×5 (01:26→19:15)
[2020-03-09 06:01] LABS: BASOPHILS # (AUTO) 0.1 X10'3 (0-0.2); BASOPHILS % (AUTO) 0.9 % (0-1); EOSINOPHILS # (AUTO) 0.7 X10'3 (0-0.9); EOSINOPHILS % (AUTO) 6.3 % (0-6); LYMPHOCYTES # (AUTO) 1.8 X10'3 (1.1-4.8); LYMPHOCYTES % (AUTO) 15.8 % (21-51); MEAN CORPUSCULAR HEMOGLOBIN 22.4 PG (27.0-31.0); MEAN CORPUSCULAR HGB CONC 30.5 g/dL (33.0-36.5); MEAN CORPUSCULAR VOLUME 73.5 FL (78-98); MEAN PLATELET VOLUME 9.1 FL (7.4-10.4); MONOCYTES # (AUTO) 1.7 X10'3 (0-0.9); MONOCYTES % (AUTO) 14.5 % (2-12); NEUTROPHILS # (AUTO) 7.1 X10'3 (1.8-7.7); NEUTROPHILS % (AUTO) 62.5 % (42-75); PLATELET COUNT 142 X10'3 (140-440); RED BLOOD COUNT 2.97 X10'6 (4.20-5.60); RED CELL DISTRIBUTION WIDTH 21.8 % (11.5-14.5); WHITE BLOOD COUNT 11.4 X10'3 (4.5-11.0)
[2020-03-09 06:06] LABS: HEMATOCRIT 21.8 % (35.0-45.0); HEMOGLOBIN 6.6 g/dl (12.0-16.0)
--- NOTE | 2020-03-09 06:20 | NUR ---
Problems reprioritized. Patient report given, questions answered & plan of care reviewed with Ivanna HENDERSON.
--- NOTE | 2020-03-09 06:20 | NUR ---
Patient in room PCU 3010. I have received report from SANTIAGO Urrutia and had the opportunity to ask questions and assume patient care.
[2020-03-09 06:24] LABS: ALANINE AMINOTRANSFERASE 21 U/L (12-78); ALBUMIN 2.4 G/DL (3.4-5.0); ALBUMIN/GLOBULIN RATIO 0.6 (1.1-1.5); ALKALINE PHOSPHATASE 72 IU/L (46-116); AMYLASE 38 U/L (25-115); ANION GAP 8 (8-16); ASPARTATE AMINO TRANSFERASE 23 U/L (10-37); BLOOD UREA NITROGEN 17 MG/DL (7-18); BUN/CREATININE RATIO 15.6 (6.6-38.0); CALCIUM 7.3 MG/DL (8.5-10.1); CHLORIDE 105 MMOL/L (99-107); CREATININE 1.09 MG/DL (0.40-0.90); GLUCOSE 99 MG/DL (70-104); LIPASE 230 U/L (73-393); MAGNESIUM 1.6 MG/DL (1.5-2.4); PHOSPHORUS 2.5 MG/DL (2.3-4.5); POTASSIUM 3.1 MMOL/L (3.5-5.1); SODIUM 137 MMOL/L (135-145); TOTAL CARBON DIOXIDE 23.6 MMOL/L (24-32); TOTAL PROTEIN 6.1 G/DL (6.4-8.2); eGFR 54 ML/MIN
--- NOTE | 2020-03-09 06:33 | NUR ---
PAGER ID: [phone] MESSAGE: Sanya Nice. Critical H&H of 6.6 / 21.8. Need order for type and screen and blood transfusion if wanted. Consent complete and in chart. Please advise. Ivanna [facility] x [phone]
[2020-03-09 07:34] LABS: HYPOCHROMASIA 1+; PLATELET ESTIMATE NORMAL; POLYCHROMASIA 1+
[2020-03-09 07:35] LABS: ANISOCYTOSIS 3+; ELLIPTOCYTES FEW; MICROCYTOSIS 1+; TEAR DROP CELLS FEW
[2020-03-09 07:36] LABS: SCHISTOCYTES FEW
[2020-03-09] MEDS: furosemide 40mg tablet PO SCH (08:00)
[2020-03-09] MEDS: spironolactone 50 MG tablet PO SCH (08:00)
[2020-03-09] MEDS: K and/or MAG REPLACEMENT MC SCH ×2 (08:49→19:16)
[2020-03-09] MEDS: lactulose 20gm/30ml cup PO SCH ×3 (08:58→20:15)
[2020-03-09] MEDS: rifaximin 550mg tablet PO SCH ×2 (09:00→19:16)
[2020-03-09] MEDS: levetiracetam 250mg tablet PO SCH ×2 (09:00→19:16)
[2020-03-09] MEDS: acetaminophen 325mg tablet PO PRN ×2 (09:00→17:50)
[2020-03-09] MEDS: CefTRIAXone/D5W-Rocephin 1gm 50 ML IV SCH (09:00)
[2020-03-09] MEDS: folic acid 1mg tablet PO SCH (09:01)
[2020-03-09] MEDS: potassium Cl 20 mEq SR tablet PO PRN ×3 (09:04→19:16)
[2020-03-09] MEDS: thiamine 100mg tablet PO SCH (09:04)
[2020-03-09] MEDS: multivitamins, therapeutics tablet PO SCH (09:04)
--- NOTE | 2020-03-09 09:42 | NUR ---
PAGER ID: [phone] MESSAGE: Patient Rosa M 3010. Is it okay to start IV on lower extremities? Unable to gain access on upper extremities and trying to give blood. Need your permission. Please advise Ivanna GOOD [phone]
[2020-03-09] MEDS: normal saline 1000ml 1,000 ML IV SCH (12:17)
[2020-03-09 15:29] LABS: HEMATOCRIT 26.3 % (35.0-45.0); HEMOGLOBIN 8.3 g/dl (12.0-16.0); MEAN CORPUSCULAR HEMOGLOBIN 24.6 PG (27.0-31.0); MEAN CORPUSCULAR HGB CONC 31.7 g/dL (33.0-36.5); MEAN CORPUSCULAR VOLUME 77.5 FL (78-98); MEAN PLATELET VOLUME 9.2 FL (7.4-10.4); PLATELET COUNT 139 X10'3 (140-440); RED BLOOD COUNT 3.39 X10'6 (4.20-5.60); RED CELL DISTRIBUTION WIDTH 23.7 % (11.5-14.5)
--- NOTE | 2020-03-09 18:00 | NUR ---
Patient refused vitals
--- NOTE | 2020-03-09 18:20 | NUR ---
Problems reprioritized. Patient report given, questions answered & plan of care reviewed with SANTIAGO Urrutia. Patient stable at transfer of care.
--- NOTE | 2020-03-09 18:43 | NUR ---
Patient in room PCU 3010. I have received report from Ivanna HENDERSON and had the opportunity to ask questions and assume patient care.
[2020-03-09] MEDS: lactobacillus rhamnosus 10,000 MMU CELLS/CAPSULE PO SCH (19:16)
[2020-03-09] MEDS: OCTREOTIDE 1,250 MCG in NS 250ml IV.SOLN IV SCH (19:35)
[2020-03-09] MEDS: LORazepam 1 MG tablet PO PRN (21:22)
[2020-03-10] MEDS: pantoprazole 40MG/NS 100ML BAG 100 ML IV SCH ×5 (00:18→21:35)
[2020-03-10 02:00] VITALS: BP 95/52
[2020-03-10] MEDS: acetaminophen 325mg tablet PO PRN ×2 (04:54→20:37)
--- NOTE | 2020-03-10 06:27 | NUR ---
Problems reprioritized. Patient report given, questions answered & plan of care reviewed with Dorcas HENDERSON.
[2020-03-10 06:33] LABS: BASOPHILS # (AUTO) 0.1 X10'3 (0-0.2); EOSINOPHILS # (AUTO) 0.6 X10'3 (0-0.9); EOSINOPHILS % (AUTO) 7.2 % (0-6); HEMATOCRIT 22.6 % (35.0-45.0); HEMOGLOBIN 7.2 g/dl (12.0-16.0); LYMPHOCYTES # (AUTO) 1.6 X10'3 (1.1-4.8); LYMPHOCYTES % (AUTO) 18.3 % (21-51); MEAN CORPUSCULAR HEMOGLOBIN 24.3 PG (27.0-31.0); MEAN CORPUSCULAR HGB CONC 31.9 g/dL (33.0-36.5); MEAN PLATELET VOLUME 9.4 FL (7.4-10.4); MONOCYTES # (AUTO) 1.3 X10'3 (0-0.9); MONOCYTES % (AUTO) 15.1 % (2-12); NEUTROPHILS # (AUTO) 5.1 X10'3 (1.8-7.7); NEUTROPHILS % (AUTO) 58.4 % (42-75); PLATELET COUNT 130 X10'3 (140-440); RED BLOOD COUNT 2.97 X10'6 (4.20-5.60); RED CELL DISTRIBUTION WIDTH 23.3 % (11.5-14.5); WHITE BLOOD COUNT 8.7 X10'3 (4.5-11.0)
[2020-03-10 06:39] LABS: ALANINE AMINOTRANSFERASE 16 U/L (12-78); ALBUMIN 2.3 G/DL (3.4-5.0); ALBUMIN/GLOBULIN RATIO 0.7 (1.1-1.5); ALKALINE PHOSPHATASE 66 IU/L (46-116); AMYLASE 36 U/L (25-115); ANION GAP 9 (8-16); ASPARTATE AMINO TRANSFERASE 20 U/L (10-37); BLOOD UREA NITROGEN 9 MG/DL (7-18); BUN/CREATININE RATIO 12.3 (6.6-38.0); CALCIUM 7.3 MG/DL (8.5-10.1); CHLORIDE 108 MMOL/L (99-107); CREATININE 0.73 MG/DL (0.40-0.90); GLUCOSE 94 MG/DL (70-104); LIPASE 243 U/L (73-393); MAGNESIUM 1.8 MG/DL (1.5-2.4); POTASSIUM 3.6 MMOL/L (3.5-5.1); SODIUM 138 MMOL/L (135-145); TOTAL CARBON DIOXIDE 20.9 MMOL/L (24-32); TOTAL PROTEIN 5.7 G/DL (6.4-8.2); eGFR 86 ML/MIN
--- NOTE | 2020-03-10 06:45 | NUR ---
Patient in room PCU 3010. I have received report from Itzel HENDERSON and had the opportunity to ask questions and assume patient care.
[2020-03-10 06:55] VITALS: BP 96/54
[2020-03-10] MEDS: rifaximin 550mg tablet PO SCH ×2 (07:24→20:36)
[2020-03-10] MEDS: CefTRIAXone/D5W-Rocephin 1gm 50 ML IV SCH (07:24)
[2020-03-10] MEDS: multivitamins, therapeutics tablet PO SCH (07:28)
[2020-03-10] MEDS: thiamine 100mg tablet PO SCH (07:28)
[2020-03-10] MEDS: levetiracetam 250mg tablet PO SCH ×2 (07:29→20:36)
[2020-03-10] MEDS: folic acid 1mg tablet PO SCH (07:29)
[2020-03-10] MEDS: lactobacillus rhamnosus 10,000 MMU CELLS/CAPSULE PO SCH ×2 (07:29→20:35)
[2020-03-10] MEDS: spironolactone 50 MG tablet PO SCH (07:31)
[2020-03-10] MEDS: furosemide 40mg tablet PO SCH (07:31)
[2020-03-10] MEDS: lactulose 20gm/30ml cup PO SCH ×3 (07:32→20:44)
[2020-03-10] MEDS: LORazepam 1 MG tablet PO PRN ×2 (07:40→20:37)
[2020-03-10 07:45] LABS: ANISOCYTOSIS 3+; MICROCYTOSIS 1+; NUCLEATED RED BLOOD CELLS 1 /100WBC (0-0); PLATELET ESTIMATE DECREASED; TOTAL CELLS COUNTED 100
[2020-03-10 07:46] LABS: ELLIPTOCYTES FEW; HYPOCHROMASIA 2+
[2020-03-10] MEDS: K and/or MAG REPLACEMENT MC SCH ×2 (08:00→20:00)
--- NOTE | 2020-03-10 10:53 | NUR ---
Received report from SANTIAGO Toscano. Patient will be going into room 351.
--- NOTE | 2020-03-10 10:57 | NUR ---
Problems reprioritized. Patient report given, questions answered & plan of care reviewed with the wonderful Linda RN on Surgical.
[2020-03-10 11:00] VITALS: BP 86/63
--- NOTE | 2020-03-10 11:20 | NUR ---
Patient discharged to Surgical.
--- NOTE | 2020-03-10 12:00 | NUR ---
Informed MD about patient low blood pressure. MD stated this has been her normal and gave an order to reduce daily Lasix to 20 mg instead of 40 mg.
--- NOTE | 2020-03-10 14:42 | NUR ---
I agree with previous nurse physical assessment of patient.
--- NOTE | 2020-03-10 17:22 | NUR ---
Patient is in room very upset stating she has never been treated so badly. Patient states she asked RN for popsicles 30 minutes ago. Patient was educated that we did not have any on the floor and that some would be ordered from the cafeteria for her but that it takes time for them to come up. Patient also stated that she needs her Ativan however, she was educated that the Ativan order is BID and she had her first dose this morning at 0740 and it isn't time to have another dose. Patient stated that she needs to have Ativan now or she will just leave AMA and have her own Ativan from home. Patient was encouraged not to leave AMA due to her current condition. Patient stated she doesn't care, "If I don't get Ativan, I am gone". Dr. Sanford paged with following: PAGER ID: [phone] MESSAGE: Del Negretes Lissy Patient is stating she wants to leave AMA. She wants more Ativan but it's not time for another dose. Dr. Sanford called and stated that she strongly suggests patient stays however, we are not going to give another dose of Ativan until it is due.
--- NOTE | 2020-03-10 17:45 | NUR ---
Patient stated she spoke to her mother who encouraged her to stay.
--- NOTE | 2020-03-10 18:14 | NUR ---
Problems reprioritized. Patient report given, questions answered & plan of care reviewed with SANTIAGO Dozier.
--- NOTE | 2020-03-10 18:15 | NUR ---
Patient in room BRUNO 351. I have received report from Linda HENDERSON and had the opportunity to ask questions and assume patient care.
[2020-03-10 20:00] VITALS: BP 101/60
[2020-03-10] MEDS: Melatonin 3mg tablet PO PRN (20:37)
[2020-03-10] MEDS: OCTREOTIDE 1,250 MCG in NS 250ml IV.SOLN IV SCH (21:00)
[2020-03-10] MEDS: normal saline 1000ml 1,000 ML IV SCH (22:30)
[2020-03-11] VITALS (9 sets, daily range): BP systolic 82–114; BP diastolic 45–76
[2020-03-11] MEDS: pantoprazole 40MG/NS 100ML BAG 100 ML IV SCH ×5 (01:00→20:15)
[2020-03-11 05:40] LABS: BASOPHILS # (AUTO) 0.1 X10'3 (0-0.2); BASOPHILS % (AUTO) 1.1 % (0-1); EOSINOPHILS # (AUTO) 0.6 X10'3 (0-0.9); EOSINOPHILS % (AUTO) 8.1 % (0-6); HEMATOCRIT 22.5 % (35.0-45.0); HEMOGLOBIN 7.1 g/dl (12.0-16.0); LYMPHOCYTES # (AUTO) 1.6 X10'3 (1.1-4.8); LYMPHOCYTES % (AUTO) 20.6 % (21-51); MEAN CORPUSCULAR HEMOGLOBIN 24.1 PG (27.0-31.0); MEAN CORPUSCULAR HGB CONC 31.5 g/dL (33.0-36.5); MEAN CORPUSCULAR VOLUME 76.3 FL (78-98); MEAN PLATELET VOLUME 9.5 FL (7.4-10.4); MONOCYTES # (AUTO) 1.2 X10'3 (0-0.9); MONOCYTES % (AUTO) 16.1 % (2-12); NEUTROPHILS # (AUTO) 4.2 X10'3 (1.8-7.7); NEUTROPHILS % (AUTO) 54.1 % (42-75); PLATELET COUNT 147 X10'3 (140-440); RED BLOOD COUNT 2.94 X10'6 (4.20-5.60); RED CELL DISTRIBUTION WIDTH 24.2 % (11.5-14.5); WHITE BLOOD COUNT 7.7 X10'3 (4.5-11.0)
[2020-03-11] MEDS: normal saline 1000ml 1,000 ML IV SCH (05:46)
[2020-03-11 05:53] LABS: ALANINE AMINOTRANSFERASE 18 U/L (12-78); ALBUMIN 2.3 G/DL (3.4-5.0); ALBUMIN/GLOBULIN RATIO 0.6 (1.1-1.5); ALKALINE PHOSPHATASE 73 IU/L (46-116); AMYLASE 60 U/L (25-115); ANION GAP 8 (8-16); ASPARTATE AMINO TRANSFERASE 17 U/L (10-37); BILIRUBIN,TOTAL 0.8 MG/DL (0.1-1.0); BLOOD UREA NITROGEN 6 MG/DL (7-18); BUN/CREATININE RATIO 7.8 (6.6-38.0); CALCIUM 7.3 MG/DL (8.5-10.1); CHLORIDE 108 MMOL/L (99-107); CREATININE 0.77 MG/DL (0.40-0.90); GLUCOSE 117 MG/DL (70-104); LIPASE 481 U/L (73-393); MAGNESIUM 1.7 MG/DL (1.5-2.4); PHOSPHORUS 2.4 MG/DL (2.3-4.5); POTASSIUM 3.4 MMOL/L (3.5-5.1); SODIUM 138 MMOL/L (135-145); TOTAL CARBON DIOXIDE 22.1 MMOL/L (24-32); eGFR 81 ML/MIN
[2020-03-11 06:27] LABS: PLATELET ESTIMATE NORMAL; TOTAL CELLS COUNTED 100
[2020-03-11 06:28] LABS: ANISOCYTOSIS 2+; SCHISTOCYTES 1+; TOXIC GRANULATION 1+
[2020-03-11 06:29] LABS: HYPOCHROMASIA 2+; MICROCYTOSIS 1+
[2020-03-11 06:30] LABS: POLYCHROMASIA 1+; SPHEROCYTES 1+
[2020-03-11 06:31] LABS: ELLIPTOCYTES 1+
--- NOTE | 2020-03-11 07:08 | NUR ---
Patient in room BRUNO 351. I have received report from Tasia HENDERSON and had the opportunity to ask questions and assume patient care.
--- NOTE | 2020-03-11 07:10 | NUR ---
Problems reprioritized. Patient report given, questions answered & plan of care reviewed with Daria HENDERSON.
[2020-03-11] MEDS: multivitamins, therapeutics tablet PO SCH (07:27)
[2020-03-11] MEDS: folic acid 1mg tablet PO SCH (07:27)
[2020-03-11] MEDS: lactulose 20gm/30ml cup PO SCH ×3 (07:27→21:00)
[2020-03-11] MEDS: thiamine 100mg tablet PO SCH (07:27)
[2020-03-11] MEDS: levetiracetam 250mg tablet PO SCH ×2 (07:27→20:11)
[2020-03-11] MEDS: lactobacillus rhamnosus 10,000 MMU CELLS/CAPSULE PO SCH ×2 (07:27→20:11)
[2020-03-11] MEDS: rifaximin 550mg tablet PO SCH ×2 (07:27→20:11)
[2020-03-11] MEDS: CefTRIAXone/D5W-Rocephin 1gm 50 ML IV SCH (07:28)
[2020-03-11] MEDS: acetaminophen 325mg tablet PO PRN (07:28)
[2020-03-11] MEDS: K and/or MAG REPLACEMENT MC SCH ×2 (08:00→20:00)
[2020-03-11] MEDS: furosemide 40mg tablet PO SCH (08:00)
[2020-03-11] MEDS: spironolactone 50 MG tablet PO SCH (08:00)
--- NOTE | 2020-03-11 09:41 | NUR ---
PAGER ID: [phone] MESSAGE: Daria-Surg [phone] Re: Mederos BP was 82/45 held Lasix and spirolactone please call Re: diet, pain medication, Ativan orders.
[2020-03-11] MEDS ORDERED: traMADol 50MG tablet PO ONE (09:45)
--- NOTE | 2020-03-11 09:56 | NUR ---
Initial: Pt admit with GIB d/t esophageal varices, s/p EGD with banding of esophageal varices per MD notes. Pt with hx of cirrhosis of the liver, EtOH, and illicit drug use, currently receiving routine Thiamine, Folic acid, and MVI. Patient initially averaging 25% PO intake on clear liquid diet however now on full liquid diet documented with 100% PO intake. Likely pt initially with poor PO intake r/t hepatic encephalopathy on admit, now documented as A/O x 4. LBM 03/10, documented as diarrhea, likely r/t Lactulose. No nutrition diagnosis at this time. Will continue to follow and monitor need for nutrition intervention. Recommendations: 1) Advance to regular diet as medically indicated; may benefit from BSS with ST given esophageal varices 2) Monitor need for ONS/additional protein 3) Scaled weights per rx Addendum: 03/11/20 at [address] Amended: Links added.
[2020-03-11] MEDS: LORazepam 1 MG tablet PO PRN (11:15)
[2020-03-11] MEDS ORDERED: magnesium 4gm in 100ml NS 100 ML IV PRN (11:40)
[2020-03-11] MEDS ORDERED: magnesium Cl slow-release 64mg tablet PO PRN (11:40)
[2020-03-11] MEDS ORDERED: potassium Cl 20 mEq SR tablet PO PRN (11:40)
[2020-03-11] MEDS ORDERED: potassium CL 10mEq/100ml bag 100 ML IV PRN (11:40)
[2020-03-11] MEDS: potassium Cl 20 mEq SR tablet PO PRN ×3 (12:01→21:50)
--- NOTE | 2020-03-11 15:10 | NUR ---
Patient wanting soup and pepsi. Request sent down to the kitchen..
[2020-03-11] MEDS: traMADol 50MG tablet PO PRN (15:58)
--- NOTE | 2020-03-11 18:40 | NUR ---
Patient in room BRUNO 351. I have received report from Daria HENDERSON and had the opportunity to ask questions and assume patient care.
--- NOTE | 2020-03-11 18:44 | NUR ---
Problems reprioritized. Patient report given, questions answered & plan of care reviewed with Tasia HENDERSON.
--- NOTE | 2020-03-11 19:14 | NUR ---
Transfusion ended. No side effects noted. Patient requesting jello . Will get.
[2020-03-11] MEDS: Melatonin 3mg tablet PO PRN (20:15)
[2020-03-11] MEDS: nicotine 14mg patch - 24hr TD SCH (21:50)
[2020-03-11] MEDS ORDERED: LORazepam 2 mg/ml vial IV PRN (22:35)
[2020-03-12] VITALS: BP 103/59
[2020-03-12] MEDS: acetaminophen 325mg tablet PO PRN ×2 (00:53→20:48)
[2020-03-12] MEDS: pantoprazole 40MG/NS 100ML BAG 100 ML IV SCH ×4 (00:54→16:00)
[2020-03-12 05:56] LABS: BASOPHILS # (AUTO) 0.1 X10'3 (0-0.2); BASOPHILS % (AUTO) 0.7 % (0-1); EOSINOPHILS # (AUTO) 0.3 X10'3 (0-0.9); EOSINOPHILS % (AUTO) 2.8 % (0-6); HEMATOCRIT 24.6 % (35.0-45.0); HEMOGLOBIN 7.9 g/dl (12.0-16.0); LYMPHOCYTES # (AUTO) 1.7 X10'3 (1.1-4.8); LYMPHOCYTES % (AUTO) 14.3 % (21-51); MEAN CORPUSCULAR HEMOGLOBIN 24.9 PG (27.0-31.0); MEAN CORPUSCULAR HGB CONC 32.1 g/dL (33.0-36.5); MEAN CORPUSCULAR VOLUME 77.6 FL (78-98); MEAN PLATELET VOLUME 9.4 FL (7.4-10.4); MONOCYTES # (AUTO) 1.4 X10'3 (0-0.9); MONOCYTES % (AUTO) 11.6 % (2-12); NEUTROPHILS # (AUTO) 8.2 X10'3 (1.8-7.7); NEUTROPHILS % (AUTO) 70.6 % (42-75); PLATELET COUNT 137 X10'3 (140-440); RED BLOOD COUNT 3.17 X10'6 (4.20-5.60); RED CELL DISTRIBUTION WIDTH 24.9 % (11.5-14.5); WHITE BLOOD COUNT 11.6 X10'3 (4.5-11.0)
[2020-03-12 06:03] LABS: ALANINE AMINOTRANSFERASE 19 U/L (12-78); ALBUMIN 2.3 G/DL (3.4-5.0); ALBUMIN/GLOBULIN RATIO 0.6 (1.1-1.5); ALKALINE PHOSPHATASE 84 IU/L (46-116); AMYLASE 53 U/L (25-115); ANION GAP 9 (8-16); ASPARTATE AMINO TRANSFERASE 16 U/L (10-37); BILIRUBIN,TOTAL 1.2 MG/DL (0.1-1.0); BLOOD UREA NITROGEN 6 MG/DL (7-18); BUN/CREATININE RATIO 9.5 (6.6-38.0); CALCIUM 7.4 MG/DL (8.5-10.1); CHLORIDE 106 MMOL/L (99-107); CREATININE 0.63 MG/DL (0.40-0.90); GLUCOSE 101 MG/DL (70-104); LIPASE 356 U/L (73-393); MAGNESIUM 1.5 MG/DL (1.5-2.4); POTASSIUM 3.9 MMOL/L (3.5-5.1); SODIUM 136 MMOL/L (135-145); TOTAL CARBON DIOXIDE 21.3 MMOL/L (24-32); eGFR > 90 ML/MIN
--- NOTE | 2020-03-12 06:26 | NUR ---
Problems reprioritized. Patient report given, questions answered & plan of care reviewed with Dionna HENDERSON.
[2020-03-12 07:00] VITALS: BP 91/57
[2020-03-12 07:13] LABS: ANISOCYTOSIS 3+; HYPOCHROMASIA 1+; MICROCYTOSIS 1+; PLATELET ESTIMATE DECREASED; POLYCHROMASIA FEW
[2020-03-12 07:20] LABS: HOWELL-JOLLY BODIES FEW
[2020-03-12 07:21] LABS: SCHISTOCYTES FEW
[2020-03-12] MEDS: K and/or MAG REPLACEMENT MC SCH ×2 (07:21→20:00)
[2020-03-12 07:22] LABS: BURR CELLS FEW
[2020-03-12] MEDS: spironolactone 50 MG tablet PO SCH (08:00)
[2020-03-12] MEDS: furosemide 40mg tablet PO SCH (08:00)
[2020-03-12] MEDS: lactulose 20gm/30ml cup PO SCH ×3 (08:00→20:46)
[2020-03-12] MEDS: rifaximin 550mg tablet PO SCH ×2 (08:00→20:46)
[2020-03-12] MEDS: normal saline 1000ml 1,000 ML IV SCH (08:13)
[2020-03-12] MEDS: CefTRIAXone/D5W-Rocephin 1gm 50 ML IV SCH (08:13)
[2020-03-12] MEDS: levetiracetam 250mg tablet PO SCH ×2 (08:14→20:46)
[2020-03-12] MEDS: thiamine 100mg tablet PO SCH (08:14)
[2020-03-12] MEDS: multivitamins, therapeutics tablet PO SCH (08:14)
[2020-03-12] MEDS: traMADol 50MG tablet PO PRN ×3 (08:14→20:54)
[2020-03-12] MEDS: lactobacillus rhamnosus 10,000 MMU CELLS/CAPSULE PO SCH ×2 (08:14→20:45)
[2020-03-12] MEDS: folic acid 1mg tablet PO SCH (08:14)
--- NOTE | 2020-03-12 08:23 | NUR ---
When trying to administer Tramadol to patient she accidentally dropped on the floor medication was wasted with Shayla RN, Verified with pharmacy this was tramadol and patient was given a new Tramadol by primary RN
[2020-03-12] MEDS: LORazepam 1 MG tablet PO PRN ×2 (11:36→20:48)
[2020-03-12] MEDS: pantoprazole 40mg Tablet.DR PO SCH ×2 (12:22→20:46)
[2020-03-12 12:35] VITALS: BP 99/65
--- NOTE | 2020-03-12 18:40 | NUR ---
Patient in room BRUNO 351. I have received report from dodie HENDERSON and had the opportunity to ask questions and assume patient care.
[2020-03-12 19:00] VITALS: BP 99/57
[2020-03-12] MEDS: nicotine 14mg patch - 24hr TD SCH (20:47)
[2020-03-12] MEDS: Melatonin 3mg tablet PO PRN (20:48)
[2020-03-13] VITALS: BP 107/63
[2020-03-13] MEDS: traMADol 50MG tablet PO PRN (05:02)
[2020-03-13] MEDS: acetaminophen 325mg tablet PO PRN (05:03)
[2020-03-13 05:58] LABS: MAGNESIUM 1.4 MG/DL (1.5-2.4)
--- NOTE | 2020-03-13 06:40 | NUR ---
Problems reprioritized. Patient report given, questions answered & plan of care reviewed with Dionna Martin.
--- NOTE | 2020-03-13 06:49 | NUR ---
Patient in room BRUNO 351. I have received report from lj mooney and had the opportunity to ask questions and assume patient care.
[2020-03-13 07:00] VITALS: BP 97/60
[2020-03-13 07:13] LABS: BASOPHILS # (AUTO) 0.1 X10'3 (0-0.2); BASOPHILS % (AUTO) 0.9 % (0-1); EOSINOPHILS # (AUTO) 0.4 X10'3 (0-0.9); EOSINOPHILS % (AUTO) 4.1 % (0-6); HEMATOCRIT 24.6 % (35.0-45.0); HEMOGLOBIN 8.1 g/dl (12.0-16.0); LYMPHOCYTES # (AUTO) 1.7 X10'3 (1.1-4.8); LYMPHOCYTES % (AUTO) 15.9 % (21-51); MEAN CORPUSCULAR HEMOGLOBIN 25.6 PG (27.0-31.0); MEAN CORPUSCULAR HGB CONC 32.8 g/dL (33.0-36.5); MEAN CORPUSCULAR VOLUME 77.9 FL (78-98); MEAN PLATELET VOLUME 9.9 FL (7.4-10.4); MONOCYTES # (AUTO) 1.4 X10'3 (0-0.9); MONOCYTES % (AUTO) 13.3 % (2-12); NEUTROPHILS # (AUTO) 6.9 X10'3 (1.8-7.7); NEUTROPHILS % (AUTO) 65.8 % (42-75); PLATELET COUNT 135 X10'3 (140-440); RED BLOOD COUNT 3.16 X10'6 (4.20-5.60); RED CELL DISTRIBUTION WIDTH 24.9 % (11.5-14.5); WHITE BLOOD COUNT 10.4 X10'3 (4.5-11.0)
[2020-03-13 07:22] LABS: ALANINE AMINOTRANSFERASE 17 U/L (12-78); ALBUMIN 2.3 G/DL (3.4-5.0); ALBUMIN/GLOBULIN RATIO 0.6 (1.1-1.5); ALKALINE PHOSPHATASE 91 IU/L (46-116); ANION GAP 11 (8-16); ASPARTATE AMINO TRANSFERASE 23 U/L (10-37); BILIRUBIN,TOTAL 1.1 MG/DL (0.1-1.0); BLOOD UREA NITROGEN 4 MG/DL (7-18); BUN/CREATININE RATIO 7.3 (6.6-38.0); CALCIUM 7.6 MG/DL (8.5-10.1); CHLORIDE 105 MMOL/L (99-107); CREATININE 0.55 MG/DL (0.40-0.90); GLUCOSE 87 MG/DL (70-104); POTASSIUM 3.5 MMOL/L (3.5-5.1); SODIUM 137 MMOL/L (135-145); TOTAL CARBON DIOXIDE 21.3 MMOL/L (24-32); TOTAL PROTEIN 5.9 G/DL (6.4-8.2); eGFR > 90 ML/MIN
[2020-03-13 07:58] LABS: ANISOCYTOSIS 3+
[2020-03-13 08:00] LABS: ELLIPTOCYTES FEW; SCHISTOCYTES FEW
[2020-03-13] MEDS: K and/or MAG REPLACEMENT MC SCH (08:00)
[2020-03-13] MEDS: spironolactone 50 MG tablet PO SCH (08:00)
[2020-03-13] MEDS: nicotine 14mg patch - 24hr TD SCH (08:00)
[2020-03-13] MEDS: furosemide 40mg tablet PO SCH (08:00)
[2020-03-13 08:01] LABS: HYPOCHROMASIA 1+; MICROCYTOSIS 1+
[2020-03-13 08:02] LABS: LARGE PLATELETS FEW; PLATELET ESTIMATE DECREASED
[2020-03-13 08:03] LABS: POLYCHROMASIA FEW
[2020-03-13] MEDS: thiamine 100mg tablet PO SCH (08:55)
[2020-03-13] MEDS: rifaximin 550mg tablet PO SCH (08:55)
[2020-03-13] MEDS: folic acid 1mg tablet PO SCH (08:55)
[2020-03-13] MEDS: multivitamins, therapeutics tablet PO SCH (08:55)
[2020-03-13] MEDS: CefTRIAXone/D5W-Rocephin 1gm 50 ML IV SCH (08:56)
[2020-03-13] MEDS: levetiracetam 250mg tablet PO SCH (08:56)
[2020-03-13] MEDS: pantoprazole 40mg Tablet.DR PO SCH (08:56)
[2020-03-13] MEDS: lactobacillus rhamnosus 10,000 MMU CELLS/CAPSULE PO SCH (08:56)
[2020-03-13] MEDS: lactulose 20gm/30ml cup PO SCH (09:04)
[2020-03-13] MEDS ORDERED: RIFA550T PO (10:21)
[2020-03-13] MEDS ORDERED: PANT-47 PO (11:47)
--- NOTE | 2020-03-13 12:44 | NUR ---
PT DISCHARGED IN STABLE CONDITION. PT HAS FAMILY PICKING HER UP. 2 IV DCd, BHARATH INTACT. ALL BELONGINGS IN HAND. FOLLOW UP INSTRUCTIONS GIVEN, PT AWARE SHE IS TO FOLLOW UP WITH PCP AND DR SAINI. ALL QUESTIONS ANSWERED. Addendum: 03/13/20 at 1246 by Heidi Easton RN Amended: Links added.
== END 2020-03-13 12:48 | disposition home or self-care (01) | DRG 280 ==
LOC: ER 13:34 → ED HOLD 17:07 → EDBEDREQ 18:23 → PCU 3S 18:52 → SUR 3N 03-10 11:16
PROVIDERS: ADMIT Internal Medicine; ATTEND Internal Medicine
PROC: 06L38CZ Occlusion of Esophageal Vein with Extraluminal Device, Via Natural or Artificial Opening Endoscopic (ICD-10-PCS; principal; 2020-03-07)
PROC: 30233N1 Transfusion of Nonautologous Red Blood Cells into Peripheral Vein, Percutaneous Approach (ICD-10-PCS; 2020-03-09)
DX: K70.31 Alcoholic cirrhosis of liver with ascites (principal); I85.11 Secondary esophageal varices with bleeding; D62 Acute posthemorrhagic anemia; F10.10 Alcohol abuse, uncomplicated; F15.90 Other stimulant use, unspecified, uncomplicated; F17.210 Nicotine dependence, cigarettes, uncomplicated; F41.9 Anxiety disorder, unspecified; F12.90 Cannabis use, unspecified, uncomplicated; M54.5 Low back pain; K72.90 Hepatic failure, unspecified without coma; Z86.73 Personal history of transient ischemic attack (TIA), and cerebral infarction without residual deficits; Z86.79 Personal history of other diseases of the circulatory system; Z88.1 Allergy status to other antibiotic agents; Z88.8 Allergy status to other drugs, medicaments and biological substances
CPT/HCPCS: 36415; 36430; 43244; 80053; 80320; 82140; 82150; 82272; 83605; 83690; 83735; 84100; 85025; 85027; 85610; 85730; 86885; 86900; 86901; 86920; 87040; 87081; 96365; 99152; 99285; A4620; C9113; G0378; J0696; J1956; J2060; J2250; J2354; J2405; J3010; J3411; J3490; J7030; J7040; J7050; J7060; P9016

== ENCOUNTER 2020-04-12 21:27 | Inpatient (IN) | payer MEDICAID ==
[~2020-04-12] VITALS: Ht 162.6 cm; Wt 59.1 kg
[~2020-04-12 21:27] MED LIST changes: +PANT-47 PO; +RIFA550T PO
[2020-04-12 21:59] LABS: BASOPHILS # (AUTO) 0.2 X10'3 (0-0.2); BASOPHILS % (AUTO) 1.7 % (0-1); EOSINOPHILS # (AUTO) 0.2 X10'3 (0-0.9); EOSINOPHILS % (AUTO) 2.2 % (0-6); LYMPHOCYTES # (AUTO) 1.7 X10'3 (1.1-4.8); LYMPHOCYTES % (AUTO) 17.7 % (21-51); MEAN CORPUSCULAR HEMOGLOBIN 23.4 PG (27.0-31.0); MEAN CORPUSCULAR HGB CONC 31.1 g/dL (33.0-36.5); MEAN CORPUSCULAR VOLUME 75.3 FL (78-98); MEAN PLATELET VOLUME 9.3 FL (7.4-10.4); MONOCYTES # (AUTO) 1.1 X10'3 (0-0.9); MONOCYTES % (AUTO) 11.5 % (2-12); NEUTROPHILS # (AUTO) 6.3 X10'3 (1.8-7.7); NEUTROPHILS % (AUTO) 66.9 % (42-75); PLATELET COUNT 177 X10'3 (140-440); RED BLOOD COUNT 2.62 X10'6 (4.20-5.60); RED CELL DISTRIBUTION WIDTH 23.4 % (11.5-14.5); WHITE BLOOD COUNT 9.4 X10'3 (4.5-11.0)
[2020-04-12] MEDS ORDERED: ondansetron/PF 4mg/2ml inj IV ONE (22:05)
[2020-04-12 22:10] LABS: ALANINE AMINOTRANSFERASE 17 U/L (12-78); ALBUMIN 2.4 G/DL (3.4-5.0); ALBUMIN/GLOBULIN RATIO 0.6 (1.1-1.5); ALKALINE PHOSPHATASE 93 IU/L (46-116); ANION GAP 10 (8-16); ASPARTATE AMINO TRANSFERASE 30 U/L (10-37); BILIRUBIN,TOTAL 1.5 MG/DL (0.1-1.0); BLOOD UREA NITROGEN 23 MG/DL (7-18); BUN/CREATININE RATIO 31.9 (6.6-38.0); CHLORIDE 109 MMOL/L (99-107); CREATININE 0.72 MG/DL (0.40-0.90); GLUCOSE 87 MG/DL (70-104); LIPASE 90 U/L (73-393); POTASSIUM 3.9 MMOL/L (3.5-5.1); SODIUM 140 MMOL/L (135-145); TOTAL CARBON DIOXIDE 21.3 MMOL/L (24-32); TOTAL PROTEIN 6.4 G/DL (6.4-8.2); eGFR 87 ML/MIN
[2020-04-12 22:30] LABS: HEMOGLOBIN 6.1 g/dl (12.0-16.0)
[2020-04-12 22:31] LABS: HEMATOCRIT 19.8 % (35.0-45.0)
[2020-04-12] MEDS ORDERED: octreotide 100mcg/1 ml ampule IV ONE (22:40)
[2020-04-12] MEDS ORDERED: CefTRIAXone/D5W-Rocephin 1gm 50 ML IV STA (22:51)
--- NOTE | 2020-04-12 23:04 | NUR ---
Rocephin and protonix Y-site compatible per [employer]
[2020-04-12] MEDS: pantoprazole 40MG/NS 100ML BAG 100 ML IV SCH ×2 (23:06→23:18)
[2020-04-12 23:14] LABS: PARTIAL THROMBOPLASTIN TIME 29 SECONDS (22-32)
[2020-04-12] MEDS ORDERED: morphine 2 MG/ML inj. syringe IV PRN ×2 (23:55)
[2020-04-12] MEDS ORDERED: acetaminophen 325mg tablet PO PRN ×2 (23:55)
[2020-04-12] MEDS ORDERED: magnesium hydroxide 30ml (MOM) UD suspension PO PRN (23:55)
[2020-04-12] MEDS ORDERED: metoclopramide 5 mg/ml inj IV PRN (23:55)
[2020-04-12] MEDS ORDERED: mag hydrox/Alum hydrox/simeth 30ml oral suspension PO PRN (23:55)
[2020-04-12] MEDS ORDERED: ondansetron/PF 4mg/2ml inj IV PRN (23:55)
[2020-04-13] VITALS (26 sets, daily range): BP systolic 92–117; BP diastolic 55–75
[2020-04-13 00:28] LABS: OCCULT BLOOD STOOL POSITIVE (Neg)
[2020-04-13] MEDS: HYDROcodone/acetaminophen 5mg/325mg tablet PO PRN ×4 (00:57→22:00)
[2020-04-13] MEDS: dextrose 5%-1/2 normal saline 1,000 ML IV SCH ×3 (01:01→15:54)
[2020-04-13] MEDS: octreotide inj. 500 MCG in normal saline 100ml IV soln 100 ML IV SCH ×2 (01:04→11:06)
--- NOTE | 2020-04-13 01:30 | NUR ---
pt refusing DART pt restless, anxious, and crying, pt unable to comprehend education, pt refusing education and to be compliant with care, pt yelling.
[2020-04-13 03:31] LABS: ANISOCYTOSIS 3+; MICROCYTOSIS 1+; PLATELET ESTIMATE NORMAL
[2020-04-13 03:32] LABS: ELLIPTOCYTES 1+; HYPOCHROMASIA 1+; POLYCHROMASIA 1+
--- NOTE | 2020-04-13 04:30 | NUR ---
unable to obtain urine, pt removed hat in BSC before use.
[2020-04-13] MEDS ORDERED: pantoprazole 40MG/NS 100ML BAG 100 ML IV SCH (05:00)
--- NOTE | 2020-04-13 06:11 | NUR ---
Problems reprioritized. Patient report given, questions answered & plan of care reviewed with Ivanna HENDERSON.
--- NOTE | 2020-04-13 06:46 | NUR ---
Patient in room PCU 3022. I have received report from Héctor HENDERSON and had the opportunity to ask questions and assume patient care.
[2020-04-13] MEDS: CefTRIAXone 2gm/D5W 50ml 50 ML IV SCH ×2 (07:47→19:35)
[2020-04-13] MEDS ORDERED: fentaNYL/PF 50MCG/1 ML 2ML syringe ONE (08:14)
[2020-04-13] MEDS ORDERED: LIDOcaine Viscous 15ml cup ONE (08:14)
[2020-04-13] MEDS ORDERED: MIDAZolam 5mg/5ml vial ONE (08:14)
[2020-04-13 08:31] LABS: BASOPHILS # (AUTO) 0.1 X10'3 (0-0.2); BASOPHILS % (AUTO) 0.6 % (0-1); EOSINOPHILS # (AUTO) 0.6 X10'3 (0-0.9); EOSINOPHILS % (AUTO) 3.4 % (0-6); HEMATOCRIT 25.3 % (35.0-45.0); HEMOGLOBIN 7.9 g/dl (12.0-16.0); LYMPHOCYTES % (AUTO) 6.2 % (21-51); MEAN CORPUSCULAR HEMOGLOBIN 25.2 PG (27.0-31.0); MEAN CORPUSCULAR HGB CONC 31.5 g/dL (33.0-36.5); MEAN CORPUSCULAR VOLUME 80.1 FL (78-98); MEAN PLATELET VOLUME 9.5 FL (7.4-10.4); MONOCYTES # (AUTO) 1.1 X10'3 (0-0.9); MONOCYTES % (AUTO) 6.4 % (2-12); NEUTROPHILS # (AUTO) 13.9 X10'3 (1.8-7.7); NEUTROPHILS % (AUTO) 83.4 % (42-75); PLATELET COUNT 160 X10'3 (140-440); RED BLOOD COUNT 3.15 X10'6 (4.20-5.60); RED CELL DISTRIBUTION WIDTH 21.8 % (11.5-14.5); WHITE BLOOD COUNT 16.7 X10'3 (4.5-11.0)
[2020-04-13 08:46] LABS: ALANINE AMINOTRANSFERASE 19 U/L (12-78); ALBUMIN 2.3 G/DL (3.4-5.0); ALBUMIN/GLOBULIN RATIO 0.6 (1.1-1.5); ALKALINE PHOSPHATASE 83 IU/L (46-116); ANION GAP 11 (8-16); ASPARTATE AMINO TRANSFERASE 33 U/L (10-37); BILIRUBIN,TOTAL 2.4 MG/DL (0.1-1.0); BLOOD UREA NITROGEN 23 MG/DL (7-18); BUN/CREATININE RATIO 28.4 (6.6-38.0); CALCIUM 7.4 MG/DL (8.5-10.1); CHLORIDE 108 MMOL/L (99-107); CREATININE 0.81 MG/DL (0.40-0.90); GLUCOSE 128 MG/DL (70-104); SODIUM 139 MMOL/L (135-145); TOTAL CARBON DIOXIDE 20.4 MMOL/L (24-32); TOTAL PROTEIN 6.2 G/DL (6.4-8.2); eGFR 76 ML/MIN
[2020-04-13 08:57] LABS: ANISOCYTOSIS 3+; GIANT PLATELET FEW; HYPOCHROMASIA 1+; LARGE PLATELETS FEW; PLATELET ESTIMATE NORMAL; POLYCHROMASIA 1+
[2020-04-13 08:58] LABS: SCHISTOCYTES FEW
[2020-04-13 08:59] LABS: ELLIPTOCYTES 1+
[2020-04-13] MEDS ORDERED: NO HOME MEDS (12:43)
[2020-04-13] MEDS ORDERED: FOLI0.4T14 PO (15:22)
[2020-04-13] MEDS ORDERED: FURO40TA4 PO (15:22)
[2020-04-13] MEDS ORDERED: LEVE10006 PO (15:22)
[2020-04-13] MEDS ORDERED: THIA100T66 PO (15:22)
[2020-04-13] MEDS ORDERED: LACT10SO PO (15:22)
[2020-04-13] MEDS ORDERED: PANT40TA4 PO (15:22)
[2020-04-13] MEDS ORDERED: RIFA550T PO (15:22)
--- NOTE | 2020-04-13 15:25 | NUR ---
PAGER ID: [phone] MESSAGE: Patient Rosa M 0838. Do we want the D5 1/2NS discontinued? She is now on clears. Thanks, Ivanna GOOD
[2020-04-13] MEDS: pantoprazole 40MG/NS 100ML BAG 100 ML IV SCH ×2 (15:49→19:52)
--- NOTE | 2020-04-13 18:43 | NUR ---
Problems reprioritized. Patient report given, questions answered & plan of care reviewed with SANTIAGO Durant.
--- NOTE | 2020-04-13 18:55 | NUR ---
Patient in room PCU 3022. I have received report from vinicio Pena and had the opportunity to ask questions and assume patient care.
[2020-04-14] VITALS (12 sets, daily range): BP systolic 86–109; BP diastolic 38–65
[2020-04-14] MEDS: pantoprazole 40MG/NS 100ML BAG 100 ML IV SCH ×5 (01:04→18:36)
[2020-04-14] MEDS: diphenhydrAMINE 25mg capsule PO PRN ×3 (01:19→16:18)
[2020-04-14] MEDS: dextrose 5%-1/2 normal saline 1,000 ML IV SCH ×2 (02:32→16:17)
[2020-04-14 05:25] LABS: ALANINE AMINOTRANSFERASE 13 U/L (12-78); ALBUMIN/GLOBULIN RATIO 0.5 (1.1-1.5); ALKALINE PHOSPHATASE 76 IU/L (46-116); ANION GAP 8 (8-16); ASPARTATE AMINO TRANSFERASE 35 U/L (10-37); BILIRUBIN,TOTAL 1.2 MG/DL (0.1-1.0); BLOOD UREA NITROGEN 13 MG/DL (7-18); BUN/CREATININE RATIO 16.3 (6.6-38.0); CALCIUM 7.2 MG/DL (8.5-10.1); CHLORIDE 108 MMOL/L (99-107); GLUCOSE 105 MG/DL (70-104); POTASSIUM 4.2 MMOL/L (3.5-5.1); SODIUM 136 MMOL/L (135-145); TOTAL CARBON DIOXIDE 20.1 MMOL/L (24-32); TOTAL PROTEIN 5.7 G/DL (6.4-8.2); eGFR 77 ML/MIN
[2020-04-14 05:29] LABS: BASOPHILS # (AUTO) 0.1 X10'3 (0-0.2); BASOPHILS % (AUTO) 1.2 % (0-1); LYMPHOCYTES # (AUTO) 1.3 X10'3 (1.1-4.8); LYMPHOCYTES % (AUTO) 14.7 % (21-51); MEAN CORPUSCULAR HEMOGLOBIN 25.7 PG (27.0-31.0); MEAN CORPUSCULAR VOLUME 80.3 FL (78-98); MEAN PLATELET VOLUME 9.5 FL (7.4-10.4); MONOCYTES % (AUTO) 11.9 % (2-12); NEUTROPHILS # (AUTO) 5.4 X10'3 (1.8-7.7); NEUTROPHILS % (AUTO) 61.2 % (42-75); PLATELET COUNT 127 X10'3 (140-440); RED BLOOD COUNT 2.66 X10'6 (4.20-5.60); RED CELL DISTRIBUTION WIDTH 21.5 % (11.5-14.5); WHITE BLOOD COUNT 8.8 X10'3 (4.5-11.0)
[2020-04-14 05:53] LABS: HEMOGLOBIN 6.8 g/dl (12.0-16.0)
[2020-04-14 05:54] LABS: HEMATOCRIT 21.3 % (35.0-45.0)
--- NOTE | 2020-04-14 05:58 | NUR ---
PAGER ID: [phone] MESSAGE: [id number] - patient's H/H 6.8/21.3, admitted for GI bleed -
--- NOTE | 2020-04-14 05:59 | NUR ---
Received orders from Dr. Arciniega to transfuse 2 units of RBC
--- NOTE | 2020-04-14 06:15 | NUR ---
Problems reprioritized. Patient report given, questions answered & plan of care reviewed with SANTIAGO Goncalves.
--- NOTE | 2020-04-14 06:26 | NUR ---
Patient in room PCU 3022. I have received report from SANTIAGO Durant and had the opportunity to ask questions and assume patient care.
[2020-04-14] MEDS: CefTRIAXone 2gm/D5W 50ml 50 ML IV SCH ×2 (07:10→20:45)
[2020-04-14] MEDS: HYDROcodone/acetaminophen 5mg/325mg tablet PO PRN ×4 (07:19→20:48)
--- NOTE | 2020-04-14 09:48 | NUR ---
PAGER ID: [phone] MESSAGE: Patient Rosa M 6028. Med rec is complete, please review meds, she should be on Keppra. Ivanna GOOD
[2020-04-14] MEDS: OCTREOTIDE 1,250 MCG in NS 250ml IV.SOLN IV SCH (10:17)
--- NOTE | 2020-04-14 15:32 | NUR ---
PAGER ID: [phone] MESSAGE: Patient Rosa M 3022 - Med rec needs to be reviewed please, pt stating she needs Maxwell and Franny. Please advise, Ivanna GOOD [phone]
[2020-04-14] MEDS: furosemide 40mg tablet PO SCH (16:17)
[2020-04-14] MEDS: thiamine 100mg tablet PO SCH (16:18)
[2020-04-14] MEDS: folic acid 0.4mg tablet PO SCH (16:19)
--- NOTE | 2020-04-14 18:18 | NUR ---
Problems reprioritized. Patient report given, questions answered & plan of care reviewed with SANTIAGO Beck. Pt stable at transfer of care.
--- NOTE | 2020-04-14 18:30 | NUR ---
Patient in room PCU 3022. I have received report from Ivanna HENDERSON and had the opportunity to ask questions and assume patient care.
[2020-04-14] MEDS ORDERED: pantoprazole 40mg Tablet.DR PO SCH (20:00)
[2020-04-14] MEDS: lactulose 20gm/30ml cup PO SCH (20:00)
[2020-04-14 20:13] LABS: HEMATOCRIT 30.7 % (35.0-45.0); HEMOGLOBIN 9.9 g/dl (12.0-16.0); MEAN CORPUSCULAR HEMOGLOBIN 26.4 PG (27.0-31.0); MEAN CORPUSCULAR HGB CONC 32.2 g/dL (33.0-36.5); MEAN CORPUSCULAR VOLUME 81.8 FL (78-98); MEAN PLATELET VOLUME 9.3 FL (7.4-10.4); PLATELET COUNT 138 X10'3 (140-440); RED BLOOD COUNT 3.75 X10'6 (4.20-5.60); RED CELL DISTRIBUTION WIDTH 20.4 % (11.5-14.5); WHITE BLOOD COUNT 8.8 X10'3 (4.5-11.0)
--- NOTE | 2020-04-14 20:36 | NUR ---
patient refused to do orthostatic VS. educated patient on the importance of the assessment. assessment will be continued Qshift.
[2020-04-14] MEDS: levetiracetam 250mg tablet PO SCH (20:44)
[2020-04-14] MEDS: rifaximin 550mg tablet PO SCH (20:47)
[2020-04-15] VITALS (8 sets, daily range): BP systolic 92–126; BP diastolic 53–81
[2020-04-15] MEDS: pantoprazole 40MG/NS 100ML BAG 100 ML IV SCH ×5 (00:16→22:38)
[2020-04-15] MEDS: dextrose 5%-1/2 normal saline 1,000 ML IV SCH ×3 (01:52→18:37)
[2020-04-15] MEDS: HYDROcodone/acetaminophen 5mg/325mg tablet PO PRN ×4 (04:19→20:03)
--- NOTE | 2020-04-15 04:36 | NUR ---
[place]rientee documentation: I have reviewed and agree with all interventions, assessments performed and documented by Yonatan HENDERSON. [place] Medication Administration: For this medication-pass time frame, all medication were reviewed, dispensed, administered and documented per hospital policy by Yonatan HENDERSON.
[2020-04-15 06:06] LABS: BASOPHILS # (AUTO) 0.1 X10'3 (0-0.2); BASOPHILS % (AUTO) 1.4 % (0-1); EOSINOPHILS # (AUTO) 0.8 X10'3 (0-0.9); EOSINOPHILS % (AUTO) 8.4 % (0-6); HEMATOCRIT 27.9 % (35.0-45.0); HEMOGLOBIN 9.1 g/dl (12.0-16.0); LYMPHOCYTES # (AUTO) 1.2 X10'3 (1.1-4.8); LYMPHOCYTES % (AUTO) 13.1 % (21-51); MEAN CORPUSCULAR HEMOGLOBIN 26.4 PG (27.0-31.0); MEAN CORPUSCULAR HGB CONC 32.7 g/dL (33.0-36.5); MEAN CORPUSCULAR VOLUME 80.8 FL (78-98); MEAN PLATELET VOLUME 9.6 FL (7.4-10.4); MONOCYTES # (AUTO) 1.2 X10'3 (0-0.9); MONOCYTES % (AUTO) 13.3 % (2-12); NEUTROPHILS # (AUTO) 5.8 X10'3 (1.8-7.7); NEUTROPHILS % (AUTO) 63.8 % (42-75); PLATELET COUNT 144 X10'3 (140-440); RED BLOOD COUNT 3.46 X10'6 (4.20-5.60); RED CELL DISTRIBUTION WIDTH 20.1 % (11.5-14.5); WHITE BLOOD COUNT 9.1 X10'3 (4.5-11.0)
--- NOTE | 2020-04-15 06:10 | NUR ---
Problems reprioritized. Patient report given, questions answered & plan of care reviewed with Ivanna HENDERSON.
--- NOTE | 2020-04-15 06:15 | NUR ---
Problems reprioritized. Patient report given, questions answered & plan of care reviewed with ELVIRA HENDERSON.
--- NOTE | 2020-04-15 06:20 | NUR ---
Patient in room PCU 3022. I have received report from SANTIAGO Beck and had the opportunity to ask questions and assume patient care.
[2020-04-15 06:25] LABS: ALANINE AMINOTRANSFERASE 14 U/L (12-78); ALBUMIN 2.1 G/DL (3.4-5.0); ALBUMIN/GLOBULIN RATIO 0.6 (1.1-1.5); ALKALINE PHOSPHATASE 86 IU/L (46-116); ANION GAP 8 (8-16); ASPARTATE AMINO TRANSFERASE 24 U/L (10-37); BILIRUBIN,TOTAL 1.1 MG/DL (0.1-1.0); BLOOD UREA NITROGEN 7 MG/DL (7-18); CALCIUM 7.1 MG/DL (8.5-10.1); CHLORIDE 107 MMOL/L (99-107); CREATININE 0.87 MG/DL (0.40-0.90); GLUCOSE 106 MG/DL (70-104); POTASSIUM 3.2 MMOL/L (3.5-5.1); SODIUM 139 MMOL/L (135-145); TOTAL PROTEIN 5.9 G/DL (6.4-8.2); eGFR 70 ML/MIN
--- NOTE | 2020-04-15 07:35 | NUR ---
PAGER ID: [phone] MESSAGE: Sanya Mederos 3022. K+ 3.2, no protocol ordered, can I replace? Ivanna Tucker [phone]
[2020-04-15] MEDS ORDERED: potassium CL 10mEq/100ml bag 100 ML IV PRN ×2 (07:40)
[2020-04-15] MEDS ORDERED: potassium Cl 20 mEq SR tablet PO PRN (07:40)
[2020-04-15] MEDS: K and/or MAG REPLACEMENT MC SCH ×2 (07:41→20:27)
[2020-04-15] MEDS: lactulose 20gm/30ml cup PO SCH ×2 (07:42→20:00)
[2020-04-15] MEDS: levetiracetam 250mg tablet PO SCH ×2 (07:43→20:02)
[2020-04-15] MEDS: thiamine 100mg tablet PO SCH (07:44)
[2020-04-15 07:45] LABS: ANISOCYTOSIS 3+; LARGE PLATELETS FEW; PLATELET ESTIMATE NORMAL
[2020-04-15] MEDS: rifaximin 550mg tablet PO SCH ×2 (07:45→20:03)
[2020-04-15] MEDS: diphenhydrAMINE 25mg capsule PO PRN ×2 (07:45→14:29)
[2020-04-15] MEDS: folic acid 0.4mg tablet PO SCH (07:45)
[2020-04-15] MEDS: furosemide 40mg tablet PO SCH (07:45)
[2020-04-15] MEDS: CefTRIAXone 2gm/D5W 50ml 50 ML IV SCH ×2 (07:46→20:07)
[2020-04-15] MEDS: potassium Cl 20 mEq SR tablet PO PRN ×3 (09:19→20:09)
--- NOTE | 2020-04-15 18:10 | NUR ---
Patient in room PCU 3022. I have received report from Ivanna HENDERSON and had the opportunity to ask questions and assume patient care.
--- NOTE | 2020-04-15 18:12 | NUR ---
Problems reprioritized. Patient report given, questions answered & plan of care reviewed with SANTIAGO Beck.
[2020-04-15] MEDS: lactobacillus rhamnosus 10,000 MMU CELLS/CAPSULE PO SCH (20:02)
[2020-04-16] MEDS: HYDROcodone/acetaminophen 5mg/325mg tablet PO PRN ×4 (00:10→20:39)
[2020-04-16] MEDS: pantoprazole 40MG/NS 100ML BAG 100 ML IV SCH ×2 (01:46→06:02)
[2020-04-16 02:00] VITALS: BP 96/60
--- NOTE | 2020-04-16 05:44 | NUR ---
[place]rientee documentation: I have reviewed and agree with all interventions, assessments performed and documented by Yonatan. [place] Medication Administration: For this medication-pass time frame, all medication were reviewed, dispensed, administered and documented per hospital policy by Yonatan HENDERSON.
[2020-04-16 05:57] LABS: ALANINE AMINOTRANSFERASE 17 U/L (12-78); ALBUMIN 2.1 G/DL (3.4-5.0); ALBUMIN/GLOBULIN RATIO 0.5 (1.1-1.5); ALKALINE PHOSPHATASE 91 IU/L (46-116); ANION GAP 7 (8-16); ASPARTATE AMINO TRANSFERASE 38 U/L (10-37); BILIRUBIN,TOTAL 1.1 MG/DL (0.1-1.0); BLOOD UREA NITROGEN 4 MG/DL (7-18); BUN/CREATININE RATIO 5.6 (6.6-38.0); CALCIUM 7.6 MG/DL (8.5-10.1); CHLORIDE 108 MMOL/L (99-107); CREATININE 0.71 MG/DL (0.40-0.90); GLUCOSE 99 MG/DL (70-104); POTASSIUM 3.7 MMOL/L (3.5-5.1); SODIUM 139 MMOL/L (135-145); TOTAL CARBON DIOXIDE 23.9 MMOL/L (24-32); TOTAL PROTEIN 6.1 G/DL (6.4-8.2); eGFR 89 ML/MIN
[2020-04-16 06:01] LABS: BASOPHILS # (AUTO) 0.1 X10'3 (0-0.2); BASOPHILS % (AUTO) 1.3 % (0-1); EOSINOPHILS # (AUTO) 0.8 X10'3 (0-0.9); EOSINOPHILS % (AUTO) 8.6 % (0-6); HEMATOCRIT 29.2 % (35.0-45.0); HEMOGLOBIN 9.4 g/dl (12.0-16.0); MEAN CORPUSCULAR HEMOGLOBIN 26.5 PG (27.0-31.0); MEAN CORPUSCULAR HGB CONC 32.4 g/dL (33.0-36.5); MEAN CORPUSCULAR VOLUME 81.7 FL (78-98); MEAN PLATELET VOLUME 9.6 FL (7.4-10.4); NEUTROPHILS # (AUTO) 6.4 X10'3 (1.8-7.7); NEUTROPHILS % (AUTO) 68.1 % (42-75); PLATELET COUNT 141 X10'3 (140-440); RED BLOOD COUNT 3.57 X10'6 (4.20-5.60); RED CELL DISTRIBUTION WIDTH 20.7 % (11.5-14.5); WHITE BLOOD COUNT 9.4 X10'3 (4.5-11.0)
--- NOTE | 2020-04-16 06:25 | NUR ---
Problems reprioritized. Patient report given, questions answered & plan of care reviewed with Amy HENDERSON.
--- NOTE | 2020-04-16 06:28 | NUR ---
Problems reprioritized. Patient report given, questions answered & plan of care reviewed with Amy HENDERSON.
--- NOTE | 2020-04-16 06:40 | NUR ---
Patient in room PCU 3022. I have received report from SANTIAGO Beck and SANTIAGO Benavides and had the opportunity to ask questions and assume patient care. Patient asleep in bed and in no acute distress.
[2020-04-16 07:00] VITALS: BP 100/64
[2020-04-16] MEDS: OCTREOTIDE 1,250 MCG in NS 250ml IV.SOLN IV SCH (07:39)
[2020-04-16] MEDS: dextrose 5%-1/2 normal saline 1,000 ML IV SCH (07:39)
[2020-04-16] MEDS: CefTRIAXone 2gm/D5W 50ml 50 ML IV SCH ×2 (07:40→20:37)
[2020-04-16] MEDS: lactulose 20gm/30ml cup PO SCH ×2 (07:41→20:00)
[2020-04-16] MEDS: K and/or MAG REPLACEMENT MC SCH ×2 (07:41→20:00)
[2020-04-16] MEDS: lactobacillus rhamnosus 10,000 MMU CELLS/CAPSULE PO SCH ×2 (07:41→20:38)
[2020-04-16] MEDS: levetiracetam 250mg tablet PO SCH ×2 (07:42→20:38)
[2020-04-16] MEDS: folic acid 0.4mg tablet PO SCH (07:42)
[2020-04-16] MEDS: thiamine 100mg tablet PO SCH (07:43)
[2020-04-16] MEDS: rifaximin 550mg tablet PO SCH ×2 (07:43→20:37)
[2020-04-16] MEDS: furosemide 40mg tablet PO SCH (07:43)
[2020-04-16 09:01] LABS: ANISOCYTOSIS 3+; PLATELET ESTIMATE NORMAL
[2020-04-16 09:02] LABS: POIKILOCYTOSIS FEW; POLYCHROMASIA 1+
[2020-04-16 09:03] LABS: ELLIPTOCYTES FEW; LARGE PLATELETS FEW
--- NOTE | 2020-04-16 09:29 | NUR ---
Orders to D/C protonix gtt, sandostain gtt, and D51/[address] Arciniega. Orders to start patient on protonix PO 40mg BID put in, as well as advancing the diet to heart healthy diet per Dr. Arciniega.
[2020-04-16 11:00] VITALS: BP 100/66
[2020-04-16] MEDS: spironolactone 50 MG tablet PO SCH (11:02)
--- NOTE | 2020-04-16 16:33 | NUR ---
Patient refusing orthostatics vitals today.
[2020-04-16 18:00] VITALS: BP 119/77
--- NOTE | 2020-04-16 18:15 | NUR ---
Student Medication Administration: For this medication-pass time frame, all medication were reviewed, dispensed, administered and documented per hospital policy by rubi Mathew.
--- NOTE | 2020-04-16 18:43 | NUR ---
Problems reprioritized. Patient report given, questions answered & plan of care reviewed with SANTIAGO Solis. Patient stable at transfer of care.
[2020-04-16] MEDS: pantoprazole 40mg Tablet.DR PO SCH (20:38)
[2020-04-16 22:00] VITALS: BP 106/59
[2020-04-17] MEDS: HYDROcodone/acetaminophen 5mg/325mg tablet PO PRN (04:55)
[2020-04-17 05:41] LABS: ALANINE AMINOTRANSFERASE 15 U/L (12-78); ALBUMIN 2.1 G/DL (3.4-5.0); ALBUMIN/GLOBULIN RATIO 0.5 (1.1-1.5); ALKALINE PHOSPHATASE 92 IU/L (46-116); ANION GAP 9 (8-16); ASPARTATE AMINO TRANSFERASE 34 U/L (10-37); BILIRUBIN,TOTAL 1.2 MG/DL (0.1-1.0); BLOOD UREA NITROGEN 4 MG/DL (7-18); BUN/CREATININE RATIO 6.5 (6.6-38.0); CALCIUM 7.7 MG/DL (8.5-10.1); CHLORIDE 107 MMOL/L (99-107); CREATININE 0.62 MG/DL (0.40-0.90); GLUCOSE 85 MG/DL (70-104); POTASSIUM 3.6 MMOL/L (3.5-5.1); SODIUM 139 MMOL/L (135-145); TOTAL PROTEIN 6.2 G/DL (6.4-8.2); eGFR > 90 ML/MIN
[2020-04-17 05:59] LABS: BASOPHILS # (AUTO) 0.1 X10'3 (0-0.2); BASOPHILS % (AUTO) 1.3 % (0-1); EOSINOPHILS # (AUTO) 0.6 X10'3 (0-0.9); EOSINOPHILS % (AUTO) 6.9 % (0-6); HEMATOCRIT 28.6 % (35.0-45.0); HEMOGLOBIN 9.2 g/dl (12.0-16.0); LYMPHOCYTES # (AUTO) 1.2 X10'3 (1.1-4.8); LYMPHOCYTES % (AUTO) 13.6 % (21-51); MEAN CORPUSCULAR HEMOGLOBIN 26.2 PG (27.0-31.0); MEAN CORPUSCULAR HGB CONC 32.3 g/dL (33.0-36.5); MEAN PLATELET VOLUME 9.6 FL (7.4-10.4); MONOCYTES # (AUTO) 1.2 X10'3 (0-0.9); MONOCYTES % (AUTO) 12.7 % (2-12); NEUTROPHILS # (AUTO) 5.9 X10'3 (1.8-7.7); NEUTROPHILS % (AUTO) 65.5 % (42-75); PLATELET COUNT 148 X10'3 (140-440); RED BLOOD COUNT 3.53 X10'6 (4.20-5.60); RED CELL DISTRIBUTION WIDTH 21.5 % (11.5-14.5); WHITE BLOOD COUNT 9.1 X10'3 (4.5-11.0)
--- NOTE | 2020-04-17 06:30 | NUR ---
Patient in room PCU 3022. I have received report from SANTIAGO Solis and had the opportunity to ask questions and assume patient care.
--- NOTE | 2020-04-17 06:54 | NUR ---
Problems reprioritized. Patient report given, questions answered & plan of care reviewed with SANTIAGO Bolton.
[2020-04-17 07:00] VITALS: BP 99/75
[2020-04-17] MEDS: pantoprazole 40mg Tablet.DR PO SCH (07:44)
[2020-04-17] MEDS: CefTRIAXone 2gm/D5W 50ml 50 ML IV SCH (07:44)
[2020-04-17] MEDS: levetiracetam 250mg tablet PO SCH (07:44)
[2020-04-17] MEDS: K and/or MAG REPLACEMENT MC SCH (07:44)
[2020-04-17] MEDS: spironolactone 50 MG tablet PO SCH (07:45)
[2020-04-17] MEDS: thiamine 100mg tablet PO SCH (07:45)
[2020-04-17] MEDS: rifaximin 550mg tablet PO SCH (07:45)
[2020-04-17] MEDS: folic acid 0.4mg tablet PO SCH (07:45)
[2020-04-17] MEDS: lactobacillus rhamnosus 10,000 MMU CELLS/CAPSULE PO SCH (07:45)
[2020-04-17] MEDS: furosemide 40mg tablet PO SCH (07:45)
[2020-04-17] MEDS: lactulose 20gm/30ml cup PO SCH (07:47)
[2020-04-17 09:43] LABS: ANISOCYTOSIS 3+; PLATELET ESTIMATE NORMAL
[2020-04-17 09:44] LABS: ELLIPTOCYTES FEW; POLYCHROMASIA 1+
[2020-04-17 09:46] LABS: LARGE PLATELETS FEW
[2020-04-17] MEDS ORDERED: SPIR50TA5 PO (10:16)
--- NOTE | 2020-04-17 11:16 | NUR ---
Pt stable for discharge per MD order. Provided discharge education and instructions. Answered any questions/concerns pt had. New medication sent to preferred [facility]. Tele monitor removed. PIV removed, cannula intact. Belongings sent with patient. Walked pt downstairs to private vehicle where pts father picked pt up.
== END 2020-04-17 11:01 | disposition home or self-care (01) ==
LOC: ER 21:28 → ED HOLD 23:52 → PCU 3S 04-13 00:35
PROVIDERS: ADMIT Internal Medicine; ATTEND Internal Medicine
PROC: 30233N1 Transfusion of Nonautologous Red Blood Cells into Peripheral Vein, Percutaneous Approach (ICD-10-PCS; principal; 2020-04-13)
PROC: 06L38CZ Occlusion of Esophageal Vein with Extraluminal Device, Via Natural or Artificial Opening Endoscopic (ICD-10-PCS; 2020-04-13)
DX: K74.69 Other cirrhosis of liver (principal); K92.1 Melena; R18.8 Other ascites; K72.90 Hepatic failure, unspecified without coma; D62 Acute posthemorrhagic anemia; F17.210 Nicotine dependence, cigarettes, uncomplicated; I85.10 Secondary esophageal varices without bleeding; Z86.73 Personal history of transient ischemic attack (TIA), and cerebral infarction without residual deficits; Z82.3 Family history of stroke; Z88.1 Allergy status to other antibiotic agents; Z79.899 Other long term (current) drug therapy
CPT/HCPCS: 36415; 36430; 43244; 76705; 80053; 82140; 82272; 83690; 85008; 85025; 85027; 85610; 85730; 86885; 86900; 86901; 86920; 87081; 99152; 99285; A4620; C9113; G0378; J0696; J2250; J2354; J2405; J3010; J7040; J7050; P9016; Q0163

== ENCOUNTER 2021-10-09 18:36 | Emergency (ER) | payer MEDICAID ==
[~2021-10-09] VITALS: Ht 162.6 cm; Wt 61.6 kg
[~2021-10-09 18:36] MED LIST changes: -LACT10SO PO; +LACT10SO3 PO; -PANT-47 PO; -PANT40TA4 PO; +PANT40TA54 PO; -SPIR50TA PO; +SPIR50TA5 PO
[2021-10-09 19:06] VITALS: BP 121/60
--- NOTE | 2021-10-09 20:50 | NUR ---
cleaned wounds with ns, no bleeding
== END 2021-10-09 22:14 | disposition left against medical advice (07) ==
LOC: ER 18:37
DX: S61.251A Open bite of left index finger without damage to nail, initial encounter (principal); S81.852A Open bite, left lower leg, initial encounter; W54.1XXA Struck by dog, initial encounter; Y93.89 Activity, other specified; Y92.89 Other specified places as the place of occurrence of the external cause; Y99.8 Other external cause status

== ENCOUNTER 2021-12-12 20:33 | Emergency (ER) | payer MEDICAID ==
[~2021-12-12] VITALS: Ht 162.6 cm; Wt 59.4 kg
[2021-12-12 20:58] VITALS: BP 126/74
== END 2021-12-12 22:12 | disposition left against medical advice (07) ==
LOC: ER 20:33
DX: R10.9 Unspecified abdominal pain (principal); Z53.21 Procedure and treatment not carried out due to patient leaving prior to being seen by health care provider

== ENCOUNTER 2022-04-26 10:07 | Day surgery (SDC) | payer MEDICAID ==
[~2022-04-26] VITALS: Ht 162.6 cm; Wt 57.7 kg
[2022-04-26] MEDS ORDERED: LIDOcaine 1%/PF 5ML 10 MG/ML VIAL ONE ×2 (10:39)
[2022-04-26] MEDS ORDERED: midazolam 1 mg/ML 2ml injection ONE (10:39)
[2022-04-26] MEDS ORDERED: fentaNYL/PF 50MCG/1 ML 2ML syringe ONE (10:39)
[2022-04-26] MEDS ORDERED: albumin 25% 100mL bottle x 1 IV PRN (10:40)
== END 2022-04-26 11:25 | disposition home or self-care (01) ==
LOC: SSTAY O 10:07
PROVIDERS: ATTEND Radiology Diagnostic Radiology
DX: K70.31 Alcoholic cirrhosis of liver with ascites (principal); I10 Essential (primary) hypertension; D64.9 Anemia, unspecified; F41.9 Anxiety disorder, unspecified; Z88.8 Allergy status to other drugs, medicaments and biological substances; Z79.899 Other long term (current) drug therapy; Z86.73 Personal history of transient ischemic attack (TIA), and cerebral infarction without residual deficits; Z98.890 Other specified postprocedural states
CPT/HCPCS: 76705; J2250; J3010; J3490; J7030; A4615; A4620